=== PATIENT | female | born 1940 | race Caucasian/White ===

== ENCOUNTER → 2016-04-13 | Outpatient (CLI) | payer OTHER ==
[~2016-04-13] MED LIST: ASPEC81 PO; ATEN-175 PO; ATV5 PO; CHOL100010 PO; IBUP-103 PO; LATA0.009 OPR; LOSA1TAB38 PO; MONT1TAB5 PO; PANT40TA PO; SERT-234 PO; SIMV40TA2 PO; SYMIN INH
== END | disposition home or self-care (01) ==
LOC: C.LABBFT 07:55
PROVIDERS: ATTEND Internal Medicine
DX: E78.00 Pure hypercholesterolemia, unspecified (principal)

== ENCOUNTER → 2016-07-03 | Outpatient (CLI) | payer OTHER ==
--- NOTE | 2016-07-03 13:11 | DIAGNOSTIC IMAGING REPORT ---
THYROID ULTRASOUND HISTORY: Follow-up thyroid nodule. COMPARISON: Thyroid ultrasound 01/03/2016. FINDINGS: Right lobe: 4.1 x 1.3 x 1.5 cm. There is a 2 mm cyst within the interpolar region. There are 2 similar-appearing subtle hypoechoic nodules within the upper pole measuring 4 mm. There is an 8 x 6 x 6 mm hypoechoic nodule inferior to the right thyroid lobe. In retrospect, this remains unchanged. Left lobe: 3.3 x 1.2 x 1.1 cm. No nodules. Isthmus: No significant change in the heterogeneous solid nodule along the left side of the isthmus which measures 1.1 x 0.9 x 0.7 cm. IMPRESSION: 1. No change in the 1.1 x 0.9 x 0.7 cm solid nodule within the left side of the isthmus. Continued follow-up or fine needle aspiration can be performed. 2. An 8 x 6 x 6 mm hypoechoic nodule inferior to the right thyroid lobe. This remains stable. This could represent a lymph node or parathyroid adenoma. Continued follow-up also recommended. Electronically signed by: Ishmael Lr M.D. 07/03/2016 1:10 PM Dictated Date/Time: 07/03/2016 1:05 PM
== END | disposition home or self-care (01) ==
LOC: C.ULTR 10:41
PROVIDERS: ATTEND Internal Medicine
DX: E04.1 Nontoxic single thyroid nodule (principal)

== ENCOUNTER → 2016-09-27 | Outpatient (CLI) | payer OTHER ==
[2016-09-27 13:02] LABS: BLOOD UREA NITROGEN 16 mg/dl (7-18); BUN/CREATININE RATIO 12.5 (10-20); CALCIUM 9.4 mg/dl (8.5-10.1); CARBON DIOXIDE 29 mmol/L (21-32); CHLORIDE 103 mmol/L (98-107); GLUCOSE 121 mg/dl (70-99); POTASSIUM 3.5 mmol/L (3.5-5.1); SODIUM 139 mmol/L (136-145)
== END | disposition home or self-care (01) ==
LOC: C.LABBFT 10:54
PROVIDERS: ATTEND Internal Medicine
DX: I10 Essential (primary) hypertension (principal)

== ENCOUNTER → 2016-10-04 | Outpatient (CLI) | payer OTHER ==
[2016-10-04 12:42] LABS: BLOOD UREA NITROGEN 10 mg/dl (7-18); BUN/CREATININE RATIO 12.1 (10-20); CALCIUM 9.5 mg/dl (8.5-10.1); CARBON DIOXIDE 29 mmol/L (21-32); CHLORIDE 106 mmol/L (98-107); CREATININE 0.86 mg/dl (0.60-1.20); GLUCOSE 90 mg/dl (70-99); POTASSIUM 3.6 mmol/L (3.5-5.1); SODIUM 142 mmol/L (136-145)
== END | disposition home or self-care (01) ==
LOC: C.LABBFT 10:03
PROVIDERS: ATTEND Nurse Practitioner
DX: I10 Essential (primary) hypertension (principal)

== ENCOUNTER → 2017-01-11 | Outpatient (CLI) | payer OTHER ==
[2017-01-11 11:59] LABS: BASO % 0.5 %; BASO ABS # 0.03 K/uL (0-0.2); COMPLETE YES; IG% 0.2 %; LYMPH % 39.2 %; LYMPH ABS # 2.35 K/uL (1.2-3.4); MEAN CELL VOLUME 91.6 fL (80-100); MEAN CORPUSCULAR HEMOGLOBIN 31.2 pg (25-34); MEAN CORPUSCULAR HGB CONC 34.1 g/dl (32-36); MEAN PLATELET VOLUME 10.2 fL (7.4-10.4); MONO % 6.7 %; NEUT % 51.4 %; PLATELET COUNT 215 K/uL (130-400); RED BLOOD COUNT 4.04 M/uL (4.2-5.4); WHITE BLOOD COUNT 5.99 K/uL (4.8-10.8)
[2017-01-11 12:06] LABS: URINE APPEARANCE CLEAR (CLEAR); URINE BILIRUBIN NEG (NEG); URINE COLOR YELLOW; URINE EPITHELIAL CELL AUTO >30 /lpf (0-5); URINE NITRITE NEG (NEG); URINE PH 6.5 (4.5-7.5); URINE SPECIFIC GRAVITY 1.017 (1.000-1.030); UROBILINOGEN NEG (NEG); ZZUR CULT IF INDIC CLEAN CATCH NO
[2017-01-11 12:08] LABS: MANUAL MICROSCOPIC REQUIRED? NO; REVIEW REQ? NO
[2017-01-11 12:12] LABS: ALT/SGPT 24 U/L (12-78); BLOOD UREA NITROGEN 12 mg/dl (7-18); BUN/CREATININE RATIO 14.6 (10-20); CALCIUM 8.5 mg/dl (8.5-10.1); CARBON DIOXIDE 32 mmol/L (21-32); CHLORIDE 105 mmol/L (98-107); GLUCOSE 97 mg/dl (70-99); POTASSIUM 3.6 mmol/L (3.5-5.1); SODIUM 141 mmol/L (136-145)
[2017-01-11 12:15] LABS: ALB/GLOB RATIO 1.1 (0.9-2); ALKALINE PHOSPHATASE 70 U/L (45-117); AST/SGOT 24 U/L (15-37)
[2017-01-11 13:36] LABS: ESTIMATED AVERAGE GLUCOSE 114 mg/dl; HA1C FLAG Normal (Normal)
== END | disposition home or self-care (01) ==
LOC: C.LABBFT 07:45
PROVIDERS: ATTEND Internal Medicine
DX: R73.03 Prediabetes (principal); E55.9 Vitamin D deficiency, unspecified

== ENCOUNTER → 2017-01-26 | Outpatient (CLI) | payer OTHER ==
[2017-01-26 12:18] LABS: BLOOD UREA NITROGEN 14 mg/dl (7-18); BUN/CREATININE RATIO 15.4 (10-20); CALCIUM 9.2 mg/dl (8.5-10.1); CARBON DIOXIDE 28 mmol/L (21-32); CHLORIDE 104 mmol/L (98-107); CREATININE 0.88 mg/dl (0.60-1.20); GLUCOSE 137 mg/dl (70-99); POTASSIUM 3.8 mmol/L (3.5-5.1); SODIUM 141 mmol/L (136-145)
== END | disposition home or self-care (01) ==
LOC: C.LABBFT 10:30
PROVIDERS: ATTEND Internal Medicine
DX: I10 Essential (primary) hypertension (principal)

== ENCOUNTER → 2017-03-01 | Outpatient (CLI) | payer OTHER | END | disposition home or self-care (01) | LOC: C.MAMM 12:37 | PROVIDERS: ATTEND Internal Medicine | DX: M81.0 Age-related osteoporosis without current pathological fracture (principal) ==

== ENCOUNTER 2017-05-01 17:24 | Emergency (ER) | payer OTHER ==
[~2017-05-01] VITALS: Ht 157.5 cm; Wt 71.2 kg
[2017-05-01 17:53] VITALS: TEMP 36.5; Ht 157.5 cm; Wt 71.2 kg
[2017-05-01] MEDS ORDERED: SODIUM CHLORIDE 0.9% 1000ML 1,000 ML IV STA (18:26)
--- NOTE | 2017-05-01 18:39 | EMERGENCY ROOM VISIT NOTE ---
History Report prepared by Remigio: Jose Farris Under the Supervision of: Dr. Martin Jernigan M.D. 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 She was recently seen by her PCP for a checkup due to her blood pressure. She states it was 230/ 96 while at her doctor's office. She states that she had a headache today while at her checkup. She notes her headache has subsided. She has a history of headaches. She denies any chest pain or shortness of breath. She denies any fevers, coughs, congestion, or diarrhea. She notes she was sick during March 2017. She notes she was hardly eating anything during that time. She states that she has been recently eating and drinking well. She reports that she occasionally forgets to take her blood pressure medication. She forgot to take her blood pressure medication last night. She notes chronic leg pain. She denies any urinary symptoms. 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 Review of Systems See HPI for pertinent positives and negatives. A total of ten systems were reviewed and were otherwise negative. Past Medical & Surgical Medical Problems: (1) Anxiety (2) Breast cancer (3) Depression (4) Diverticulosis (5) Glaucoma (6) H/O gastroesophageal reflux (GERD) (7) HTN (hypertension) (8) Hypertension (9) Influenza A (10) Weakness Surgical Problems: (1) H/O lumpectomy (2) H/O: hysterectomy (3) Hx of tonsillectomy Family History Cancer Diabetes mellitus FH: HTN (hypertension) Gallbladder disease Heart disease Kidney disease Kidney stones Lung disease Social History Smoking Status: Never Smoker Smokeless Tobacco Use: No Alcohol Use: none Drug Use: none Marital Status: Housing Status: lives with significant other Occupation Status: retired Current/Historical Medications Scheduled Aspirin Enteric Coated (Ecotrin Or Generic), 81 MG PO QAM Atorvastatin (Lipitor), 10 MG PO HS Cholecalciferol (D3-1000), 1,000 UNITS PO BID Hydrochlorothiazide (Hctz), 25 MG PO QAM Losartan Potassium (Cozaar), 100 MG PO HS Metoprolol Tartrate (Lopressor) (Lopressor), 12.5 MG PO BID Pantoprazole (Protonix), 40 MG PO QAM Sertraline (Zoloft), 100 MG PO QAM Scheduled PRN Ibuprofen Tab (Advil), 200-600 MG PO Q4H PRN for Pain or Fever Lorazepam (Lorazepam), 0.5 MG PO HS PRN for Sleep Allergies Coded Allergies: Penicillins (Verified Allergy, Severe, HIVES, 05/01/17) Simvastatin (Verified Allergy, Intermediate, MYALGIA, 05/01/17) Adhesives (Verified Allergy, Mild, RASH, 05/01/17) Doxycycline (Verified Adverse Reaction, Intermediate, N/V, 05/01/17) Telithromycin (Verified Adverse Reaction, Intermediate, N/V, 05/01/17) Physical Exam Vital Signs Date Time Temp Pulse Resp B/P (MAP) Pulse Ox O2 Delivery O2 Flow Rate FiO2 05/01/17 19:57 51 164/65 97 Room Air 05/01/17 19:12 53 05/01/17 18:54 52 20 183/69 97 Room Air 05/01/17 18:49 Room Air 05/01/17 17:53 36.5 59 20 129/72 94 Room Air Physical Exam GENERAL: Awake, alert, well-appearing, in no distress HENT: Normocephalic, atraumatic. Oropharynx has dry mucus membranes. EYES: Normal conjunctiva. Sclera non-icteric. NECK: Supple. No nuchal rigidity. FROM. No JVD. RESPIRATORY: Clear to auscultation. CARDIAC: Regular rate, normal rhythm. Extremities warm and well perfused. Pulses equal. ABDOMEN: Soft, non-distended. No tenderness to palpation. No rebound or guarding. No masses. RECTAL: Deferred. MUSCULOSKELETAL: Chest examination reveals no tenderness. The back is symmetrical on inspection without obvious abnormality. There is no CVA tenderness to palpation. No joint edema. LOWER EXTREMITIES: Calves are equal size bilaterally and non-tender. No edema. No discoloration. NEURO: Normal sensorium. No sensory or motor deficits noted. SKIN: No rash or jaundice noted. Medical Decision & Procedures ER Provider Diagnostic Interpretation: Radiology results as stated below per my review and radiologist interpretation: SINGLE VIEW CHEST CLINICAL HISTORY: Atypical chest pain. FINDINGS: An AP, portable, upright chest radiograph is compared to study dated 05/03/2014. The examination is degraded by portable technique and patient rotation. The cardiomediastinal silhouette is unremarkable. There is chronic elevation of the right hemidiaphragm and mild bibasilar atelectasis. The lungs and pleural spaces are otherwise clear. No pneumothorax is seen. The skeletal structures are osteopenic. The bony thorax is grossly intact. Cholecystectomy clips are noted in the right upper quadrant. IMPRESSION: No active disease in the chest. Electronically signed by: Conor Faye M.D. 05/01/2017 6:56 PM Dictated Date/Time: 05/01/2017 6:55 PM Laboratory Results 05/01/17 18:46 Red Blood Count 3.80, Mean Corpuscular Volume 93.4, Mean Corpuscular Hemoglobin 31.3, Mean Corpuscular Hemoglobin Concent 33.5, Mean Platelet Volume 10.4, Neutrophils (%) (Auto) 46.8, Lymphocytes (%) (Auto) 44.4, Monocytes (%) (Auto) 6.2, Eosinophils (%) (Auto) 1.8, Basophils (%) (Auto) 0.7, Neutrophils # (Auto) 3.54, Lymphocytes # (Auto) 3.36, Monocytes # (Auto) 0.47, Eosinophils # (Auto) 0.14, Basophils # (Auto) 0.05 05/01/17 18:46 Test 05/01/17 18:46 White Blood Count 7.57 K/uL (4.8-10.8) Red Blood Count 3.80 M/uL (4.2-5.4) Hemoglobin 11.9 g/dL (12.0-16.0) Hematocrit 35.5 % (37-47) Mean Corpuscular Volume 93.4 fL (80-100) Mean Corpuscular Hemoglobin 31.3 pg (25-34) Mean Corpuscular Hemoglobin Concent 33.5 g/dl (32-36) Platelet Count 192 K/uL (130-400) Mean Platelet Volume 10.4 fL (7.4-10.4) Neutrophils (%) (Auto) 46.8 % Lymphocytes (%) (Auto) 44.4 % Monocytes (%) (Auto) 6.2 % Eosinophils (%) (Auto) 1.8 % Basophils (%) (Auto) 0.7 % Neutrophils # (Auto) 3.54 K/uL (1.4-6.5) Lymphocytes # (Auto) 3.36 K/uL (1.2-3.4) Monocytes # (Auto) 0.47 K/uL (0.11-0.59) Eosinophils # (Auto) 0.14 K/uL (0-0.5) Basophils # (Auto) 0.05 K/uL (0-0.2) RDW Standard Deviation 47.5 fL (36.4-46.3) RDW Coefficient of Variation 13.8 % (11.5-14.5) Immature Granulocyte % (Auto) 0.1 % Immature Granulocyte # (Auto) 0.01 K/uL (0.00-0.02) Anion Gap 5.0 mmol/L (3-11) Est Creatinine Clear Calc Drug Dose 52.7 ml/min Estimated GFR () 78.2 Estimated GFR (Non- 67.5 BUN/Creatinine Ratio 16.4 (10-20) Calcium Level 8.7 mg/dl (8.5-10.1) Magnesium Level 2.0 mg/dl (1.8-2.4) Total Bilirubin 0.6 mg/dl (0.2-1) Direct Bilirubin 0.1 mg/dl (0-0.2) Aspartate Amino Transf (AST/SGOT) 21 U/L (15-37) Alanine Aminotransferase (ALT/SGPT) 23 U/L (12-78) Alkaline Phosphatase 61 U/L (45-117) Troponin I < 0.015 ng/ml (0-0.045) Total Protein 7.1 gm/dl (6.4-8.2) Albumin 3.7 gm/dl (3.4-5.0) Lipase 160 U/L (73-393) Laboratory results reviewed by me Medications Administered Medications (Trade) Dose Ordered Sig/Kt Route Start Time Stop Time Status Last Admin Dose Admin Sodium Chloride 1,000 ml @ 999 mls/hr Q1H1M STAT IV 05/01/17 18:26 05/01/17 19:26 DC 05/01/17 18:56 999 MLS/HR ECG Indication: other (high blood pressure) Rate (beats per minute): 51 Rhythm: sinus bradycardia Findings: no acute ischemic change, other (Normal axis. ) Change: Patient's electrocardiogram interpreted by me. ED Course 1824: The patient was evaluated in room A9B. A complete history and physical exam was performed. 1939: I reassessed the patient at this time. She is feeling better and resting comfortably. I discussed the results and treatment plan with the patient. I answered all pertaining questions that she had. She expressed understanding and verbalized agreement. The patient will be discharged home. Medical Decision I reviewed the patient's past medical history, medications, and the nursing notes as described above. The patient's presentation and history were concerning for dehydration, electrolyte abnormalities, ACS, renal disease, tension headache, migraine headache, and viral syndrome. The patient is a 76-year-old woman with a past medical history of hypertension who presents to emergency department from her PCPs office concern for elevated blood pressure with systolic blood pressure in the 200s in the setting of mild headache per hpi. Patient was given clonidine prior to EMS transfer and upon arrival patient's blood pressures and within normal limits and headache is resolved. The patient denies chest pain, shortness of breath, nausea or vomiting. EKG unremarkable. Troponin negative. Chest x-ray negative. Patient does appear clinically dry and reports decreased oral intake over the past couple weeks after having a URI. It is possible that mild dehydration as contributing to the patient's elevated blood pressures. However, the patient also reports having missed her blood pressure medication last night preceding her visit to her doctor's office to follow her high blood pressure. Given the patient is asymptomatic there is no indication for further workup or admission. Plan for PCP follow-up for further monitoring and management of her known HTN. Findings and plan for follow-up reviewed with patient. Patient agreeable and d/c'd per discharge instructions. Medication Reconcilliation Current Medication List: was personally reviewed by me Blood Pressure Screening Patient's blood pressure: Normal blood pressure Impression Primary Impression: Hypertension Scribe Attestation The scribe's documentation has been prepared under my direction and personally reviewed by me in its entirety. I confirm that the note above accurately reflects all work, treatment, procedures, and medical decision making performed by me. Departure Information Dispostion Home / Self-Care Referrals Sandoval He M.D. (PCP) Forms HOME CARE DOCUMENTATION FORM, IMPORTANT VISIT INFORMATION, WORK / SCHOOL INSTRUCTIONS Patient Instructions Hypertension Control, Hypertension Dc, [facility] Additional Instructions Please follow up with your primary care physician in the next 1-3 days for re- evaluation. The cause of your elevated blood pressure today may have been due to mild dehydration and missing your blood pressure medicines last night Otherwise, your exam, EKG, chest xray, and lab results did not show signs of an emergent condition at this time. Take your medications as prescribed. Drink plenty of fluids to ensure hydration. Return to the emergency department for worsening symptoms as described in the accompanying instructions.
--- NOTE | 2017-05-01 18:57 | DIAGNOSTIC IMAGING REPORT ---
SINGLE VIEW CHEST CLINICAL HISTORY: Atypical chest pain. FINDINGS: An AP, portable, upright chest radiograph is compared to study dated 05/03/2014. The examination is degraded by portable technique and patient rotation. The cardiomediastinal silhouette is unremarkable. There is chronic elevation of the right hemidiaphragm and mild bibasilar atelectasis. The lungs and pleural spaces are otherwise clear. No pneumothorax is seen. The skeletal structures are osteopenic. The bony thorax is grossly intact. Cholecystectomy clips are noted in the right upper quadrant. IMPRESSION: No active disease in the chest. Electronically signed by: Conor Faye M.D. 05/01/2017 6:56 PM Dictated Date/Time: 05/01/2017 6:55 PM
[2017-05-01 19:03] LABS: BASO % 0.7 %; BASO ABS # 0.05 K/uL (0-0.2); EOS % 1.8 %; EOS ABS # 0.14 K/uL (0-0.5); HEMATOCRIT 35.5 % (37-47); HEMOGLOBIN 11.9 g/dL (12.0-16.0); IG# 0.01 K/uL (0.00-0.02); LYMPH % 44.4 %; LYMPH ABS # 3.36 K/uL (1.2-3.4); MEAN CELL VOLUME 93.4 fL (80-100); MEAN CORPUSCULAR HEMOGLOBIN 31.3 pg (25-34); MEAN CORPUSCULAR HGB CONC 33.5 g/dl (32-36); MEAN PLATELET VOLUME 10.4 fL (7.4-10.4); MONO % 6.2 %; MONO ABS # 0.47 K/uL (0.11-0.59); NEUT % 46.8 %; NEUT ABS # 3.54 K/uL (1.4-6.5); PLATELET COUNT 192 K/uL (130-400); RED CELL DISTRIBUTION WIDTH CV 13.8 % (11.5-14.5); RED CELL DISTRIBUTION WIDTH SD 47.5 fL (36.4-46.3); WHITE BLOOD COUNT 7.57 K/uL (4.8-10.8)
[2017-05-01 19:24] LABS: ALBUMIN 3.7 gm/dl (3.4-5.0); ALT/SGPT 23 U/L (12-78); AST/SGOT 21 U/L (15-37); BLOOD UREA NITROGEN 14 mg/dl (7-18); CALCIUM 8.7 mg/dl (8.5-10.1); CARBON DIOXIDE 28 mmol/L (21-32); CREATININE 0.84 mg/dl (0.60-1.20); GLUCOSE 92 mg/dl (70-99); LIPASE 160 U/L (73-393); POTASSIUM 4.2 mmol/L (3.5-5.1); SODIUM 138 mmol/L (136-145)
[2017-05-01 19:26] LABS: ALKALINE PHOSPHATASE 61 U/L (45-117); TOTAL PROTEIN 7.1 gm/dl (6.4-8.2)
[2017-05-01] MEDS ORDERED: HYDR25TA4 PO (19:51)
[2017-05-01] MEDS ORDERED: ATOR10TA82 PO (19:51)
[2017-05-01] MEDS ORDERED: ASPI81TA21 PO (19:51)
[2017-05-01] MEDS ORDERED: METO25TA56 PO (19:51)
[2017-05-01] MEDS ORDERED: ATV5 PO (19:51)
[2017-05-01] MEDS ORDERED: CHOLTAB9 PO (19:51)
[2017-05-01 19:57] VITALS: BP 164/65; PULSE 51; O2SAT 97
== END 2017-05-01 20:10 | disposition home or self-care (01) ==
LOC: C.EDB 17:24 → C.EDA 20:10
DX: I10 Essential (primary) hypertension (principal); M79.606 Pain in leg, unspecified; G89.29 Other chronic pain; F41.9 Anxiety disorder, unspecified; F32.9 Major depressive disorder, single episode, unspecified; K21.9 Gastro-esophageal reflux disease without esophagitis; K57.90 Diverticulosis of intestine, part unspecified, without perforation or abscess without bleeding; Z85.3 Personal history of malignant neoplasm of breast; H40.9 Unspecified glaucoma; Z90.710 Acquired absence of both cervix and uterus; Z79.82 Long term (current) use of aspirin

== ENCOUNTER → 2017-05-08 | Outpatient (CLI) | payer OTHER ==
[~2017-05-08] MED LIST changes: -ASPEC81 PO; +ASPI81TA21 PO; -ATEN-175 PO; +ATOR10TA82 PO; -CHOL100010 PO; +CHOLTAB9 PO; +HYDR25TA4 PO; -LATA0.009 OPR; +METO25TA56 PO; -MONT1TAB5 PO; -SIMV40TA2 PO; -SYMIN INH
--- NOTE | 2017-05-08 14:12 | DIAGNOSTIC IMAGING REPORT ---
ULTRASOUND OF THE THYROID GLAND CLINICAL HISTORY: Thyroid nodule. COMPARISON STUDY: Thyroid ultrasound dated 07/03/2016. TECHNIQUE: Real-time, grayscale, and color flow sonography of the thyroid gland is performed utilizing a high-frequency linear transducer. Images are reviewed in the transverse and longitudinal planes. FINDINGS: Right lobe: The right lobe of the thyroid gland is normal in size and homogeneous in echotexture, measuring 4.6 x 1.5 x 1.4 cm. A hypoechoic nodule in the upper pole measures 0.6 x 0.3 x 0.5 cm (previously measured 0.4 x 0.4 x 0.3 cm). Two additional 2 mm hypoechoic nodules are unchanged. A nodule either within or just lateral to the mid to lower pole measures 0.9 x 0.6 x 0.8 cm (previously measured 0.8 x 0.6 x 0.6 cm). Left lobe: The left lobe of the thyroid gland is normal in size and homogeneous in echotexture, measuring 3.7 x 1.1 x 1.2 cm. A 3 mm hypoechoic nodule is unchanged. Isthmus: The thyroid isthmus is normal in appearance and measures 0.2 cm in AP diameter. A nodule in the left isthmus measures 1.2 x 0.8 x 0.9 cm (previously measured 1.1 x 0.7 x 0.9 cm). IMPRESSION: 1. Multinodular thyroid gland as above, not significantly changed as compared to 07/03/2016. 2. A hypoechoic nodule either within or adjacent to the right thyroid lobe is also unchanged and could represent exophytic nodule, parathyroid adenoma, or lymph node. Electronically signed by: Conor Faye M.D. 05/08/2017 2:11 PM Dictated Date/Time: 05/08/2017 2:07 PM
== END | disposition home or self-care (01) ==
LOC: C.ULTR 13:01
PROVIDERS: ATTEND Internal Medicine
DX: E04.1 Nontoxic single thyroid nodule (principal)

== ENCOUNTER → 2017-05-10 | Outpatient (CLI) | payer OTHER ==
[2017-05-10 13:19] LABS: BLOOD UREA NITROGEN 14 mg/dl (7-18); CALCIUM 9.1 mg/dl (8.5-10.1); CARBON DIOXIDE 29 mmol/L (21-32); CREATININE 1.02 mg/dl (0.60-1.20); GLUCOSE 83 mg/dl (70-99); POTASSIUM 3.8 mmol/L (3.5-5.1); SODIUM 136 mmol/L (136-145)
== END | disposition home or self-care (01) ==
LOC: C.LABBFT 07:58
PROVIDERS: ATTEND Nurse Practitioner
DX: I10 Essential (primary) hypertension (principal)

== ENCOUNTER → 2017-10-30 | Outpatient (CLI) | payer OTHER ==
[~2017-10-30] MED LIST changes: +ASPI-319 PO; -ASPI81TA21 PO
== END | disposition home or self-care (01) ==
LOC: C.LABSPEC 13:33
PROVIDERS: ATTEND Nurse Practitioner
DX: R39.9 Unspecified symptoms and signs involving the genitourinary system (principal)

== ENCOUNTER 2019-10-25 11:56 | Observation (INO) ==
[2019-10-25] MEDS ORDERED: SODIUM CHLORIDE 0.9% 1000ML 1,000 ML IV SCH (12:30)
--- NOTE | 2019-10-25 12:45 | Emergency Department Note ---
Impression & Plan Weakness, Diarrhea, Falls frequently, Infection due to 2019 novel coronavirus, Myalgia ED Provider Note Provider: Brian Sanchez MD DATE OF SERVICE: 10/25/2019 CHIEF COMPLAINT: Weakness HISTORY OF PRESENT ILLNESS: Patient is a 79-year-old female with a history of hypothyroidism, prediabetes, hypertension, hyperlipidemia presenting today for generalized weakness. Patient was evaluated here 3 days ago in the emergency department. Patient was recently diagnosed with COVID-19 after exposure to a neighbor returning from the [facility]. Patient tested positive on the this month and has been symptomatic since about the . Reports significant fatigue and myalgias with slight cough. Having worsening weakness. Patient states she has had several falls and was evaluated for fall several days ago here where she bruised her left jaw. Patient states since then she has been feeling very weak at home and last night fell to the floor again. Patient states she is unsure if she may have lost consciousness but her helped her up. Significant multiple episodes of diarrhea daily but states she is being in her drinking. Patient states he took some ibuprofen around 1030a. Patient and her neighbor of the monitoring her vitals and pulse ox at home and state they have not dropped precipitously low. Patient states she is feels quite weak and continues to fall. Patient states that her potassium was little low on her last visit. Patient denies significant headache or visual change or nausea at this time. REVIEW OF SYSTEMS: A total of 10 review of systems was obtained and negative except as stated above in the HPI. PAST MEDICAL HISTORY: As noted above MEDICATIONS: Reviewed home medication list SOCIAL HISTORY: Lives at home with , retired, non-smoker PHYSICAL EXAM: GENERAL: alert and oriented in no acute distress on stretcher but appears fatigued Head: No obvious deformity with a 3 cm area of contusion on the left lower anterior jaw appears to be resolving, denies any loose teeth or dentition EYES: No injection, discharge or icterus. PERRL NECK: Trachea midline. Supple. ENT: Mucous membranes pink and moist. LUNGS: Airway patent. No retractions. Breath sounds clear HEART: Regular rate and rhythm. No chest wall tenderness ABDOMEN: Soft and non-tender, without guarding or rebound. SKIN: Acyanotic, warm, dry, without rashes EXTREMITIES: No significant tenderness or obvious pedal edema. Patient does have some slight bruising about 2 to 3 cm on her dorsal left hand that again appears resolving over the mid hand. NEUROLOGICAL: No focal deficits. No aphasia. No facial droop or slurred speech. Normal strength and tone in the extremities. Sensation to gross touch normal. Ambulatory. EK bpm normal sinus rhythm without PVC or PAC. No acute ST segment elevation or depressions appreciable. Some aVL T wave flattening is noted. QTc 451. CONTINUOUS CARDIAC MONITORING: was ordered and showed a heart rate of 76 bpm in normal sinus rhythm Patient's hypertension was referred to the hospitalist HOSPITAL COURSE: 1215 Patient was first seen and H&P performed. Patient and B8 on airborne precautions. 1344 Patient reassessed and updated. Patient was resting in bed still feeling generally fatigued. Discussed with her findings and discussed options at this point. Shared decision-making was made for further observation here in the h ospital. [address] [facility] Hospitalist Dr. Prasad. Attempted to update Patient's but no answer on phone, charge nurse aware. Patient's laboratory studies and imaging reviewed. Differential includes Infection, dehydration, metabolic abnormality, hypo/hyperglycemia, electrolyte disturbance, anemia, hypoxia, cardiac sources, intracerebral event, toxicologic, neurologic, as well as other pathologies. IMPRESSION/MEDICAL DECISION MAKING: Patient presents with generalized weakness and myalgias as well as continued diarrhea with a current coronavirus 19 infection. Not significant hypoxic this time. Patient denies currently striking her head and denies headache at this time. Lower suspicion for acute intracranial abnormality. Denies any other new significant injury to her extremities but states she is been feeling too weak. States she has been eating or drinking some but is concerned about her falls and weakness. Basic labs, chest x-ray, and EKG were obtained. I have a lower suspicion for acute intracranial abnormality in this patient at this time and had a recent head CT after the more significant trauma several days ago. No focality to her exam. Maintained on airborne precautions. Laboratory studies show worsening lymphopenia and leukopenia. Slight anemia noted. Chest x-ray appears fairly clear without large infiltrative process or evidence of pneumothorax. She has benign abdomen I doubt acute intra-abdominal pathology. No evidence of elevated troponin. LFTs within normal limits. No evidence of pancreatitis. Mild hypokalemia noted. We will give an IV dose of potassium here in addition to an oral dose. Discussed with patient options at this time. She felt quite weak and fatigued and and shared decision-making wish for further observation here in the hospital. Believe this is reasonable. Will send stool studies and C. difficile lower suspicion for another coinfection besides coronavirus at this time. 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 Feels Safe at Home: Yes Allergies Allergies Allergy/AdvReac Type Severity Reaction Status Date / Time Penicillins Allergy Severe HIVES Verified 10/22/19 18:37 simvastatin Allergy Intermediate MYALGIA Verified 10/22/19 18:37 adhesive Allergy Mild RASH Verified 10/22/19 18:37 doxycycline AdvReac Intermediate Nausea/Vomi Verified 10/22/19 18:37 ting telithromycin AdvReac Intermediate Nausea/Vomi Verified 10/22/19 18:37 ting Home Meds Home Medications Medication Instructions Recorded Confirmed aspirin 81 mg PO QAM 05/10/18 10/25/19 cholecalciferol (vitamin D3) 25 1,000 units PO HS tab 10/21/18 10/25/19 mcg (1,000 unit) tablet atorvastatin 10 mg PO QAM 10/22/19 10/25/19 irbesartan 300 mg PO QAM 10/22/19 10/25/19 sertraline 100 mg PO HS 10/22/19 10/25/19 Previous Rx's Medication Instructions Recorded pantoprazole 40 mg tablet,delayed 40 mg PO BID #180 tab 12/16/18 release lorazepam 0.5 mg tablet 0.5 mg PO DAILY PRN #30 tab 06/30/19 ondansetron 4 mg PO Q6H PRN #14 tab 10/22/19 Results & Data (ED) Vital Signs Vital Signs - 24 hr 10/25/19 12:13 10/25/19 12:21 10/25/19 12:30 Temperature 37.3 C Temperature Source Oral Pulse Rate 88 87 79 Pulse Rate from SpO2 Sensor 88 87 79 Pulse Rhythm Regular Pulse Strength Normal Respiratory Rate 20 21 Respiratory Effort / Characteristics Non-Labored Spontaneous Respiratory Depth Normal Respiratory Pattern Regular Blood Pressure 128/71 118/62 Blood Pressure Mean 77 80 Blood Pressure Position Sitting Pulse Oximetry 94 94 91 Oxygen Delivery Method Room Air Sepsis Recent Fever Within 48 Hours Yes Sepsis New/Unexplained Change in Mental Status No Sepsis Action Taken by Nursing No Action Required 10/25/19 12:31 10/25/19 12:40 10/25/19 12:45 Temperature Temperature Source Pulse Rate 79 80 Pulse Rate from SpO2 Sensor 80 80 Pulse Rhythm Pulse Strength Respiratory Rate Respiratory Effort / Characteristics Respiratory Depth Respiratory Pattern Blood Pressure Blood Pressure Mean Blood Pressure Position Pulse Oximetry 92 92 94 Oxygen Delivery Method Room Air Sepsis Recent Fever Within 48 Hours Sepsis New/Unexplained Change in Mental Status Sepsis Action Taken by Nursing 10/25/19 12:50 10/25/19 13:00 10/25/19 13:01 Temperature Temperature Source Pulse Rate 80 78 75 Pulse Rate from SpO2 Sensor 80 77 75 Pulse Rhythm Pulse Strength Respiratory Rate 23 20 Respiratory Effort / Characteristics Respiratory Depth Respiratory Pattern Blood Pressure 122/56 L Blood Pressure Mean 71 Blood Pressure Position Pulse Oximetry 93 93 93 Oxygen Delivery Method Sepsis Recent Fever Within 48 Hours Sepsis New/Unexplained Change in Mental Status Sepsis Action Taken by Nursing 10/25/19 13:10 Temperature Temperature Source Pulse Rate 73 Pulse Rate from SpO2 Sensor 73 Pulse Rhythm Pulse Strength Respiratory Rate Respiratory Effort / Characteristics Respiratory Depth Respiratory Pattern Blood Pressure Blood Pressure Mean Blood Pressure Position Pulse Oximetry 91 Oxygen Delivery Method Sepsis Recent Fever Within 48 Hours Sepsis New/Unexplained Change in Mental Status Sepsis Action Taken by Nursing Laboratory Data Result diagrams: 10/25/19 12:50 10/25/19 12:50 Lab Results 10/25/19 10/25/19 10/25/19 Range/Units 12:50 12:50 12:50 WBC 2.81 L (4.8-10.8) K/uL RBC 3.69 L (4.2-5.4) M/uL Hgb 11.3 L (12.0-16.0) g/dL Hct 33.7 L (37-47) % MCV 91.3 (80-100) fL MCH 30.6 (25-34) pg MCHC 33.5 (32-36) g/dL RDW Std Deviation 48.8 H (36.4-46.3) fL RDW Coeff of Ju[place] 14.5 (11.5-14.5) % Plt Count 142 (130-400) K/uL MPV 10.1 (7.4-10.4) fL Immature Gran % (Auto) 0.0 % Neut % (Auto) 70.5 % Lymph % (Auto) 23.1 % [place] % (Auto) 6.4 % Eos % (Auto) 0.0 % Baso % (Auto) 0.0 % Neut # (Auto) 1.98 (1.4-6.5) K/uL Lymph # (Auto) 0.65 L (1.2-3.4) K/uL [place] # (Auto) 0.18 (0.11-0.59) K/uL Eos # (Auto) 0.00 (0-0.5) K/uL Baso # (Auto) 0.00 (0-0.2) K/uL Immature Gran # (Auto) 0.00 (0.00-0.02) K/uL PT 10.8 (9.0-12.0) Seconds INR 1.0 (0.9-1.1) Sodium 138 (136-145) mmol/L Potassium 3.3 L (3.5-5.1) mmol/L Chloride 105 (98-107) mmol/L Carbon Dioxide 27 (21-32) mmol/L Anion Gap 6.0 (3-11) BUN 14 (7-18) mg/dl Creatinine 0.86 (0.6-1.2) mg/dl Est Cr Clr Drug Dosing 46.8 ml/min Est GFR ( Amer) 74.5 Est GFR (Non-Af Amer) 64.3 BUN/Creatinine Ratio 15.7 (10-20) Glucose 112 H (70-99) mg/dl Lactate (0.4-2.0) mmol/L Calcium 8.5 (8.5-10.1) mg/dl Magnesium 1.9 (1.8-2.4) mg/dl Ferritin (8-388) ng/ml Total Bilirubin 0.7 (0.2-1) mg/dl AST 20 (15-37) U/L ALT 15 (12-78) U/L Alkaline Phosphatase 58 (45-117) U/L Lactate Dehydrogenase (84-246) U/L Troponin I < 0.015 (0-0.045) ng/ml Total Protein 6.9 (6.4-8.2) gm/dl Albumin 3.3 L (3.4-5.0) gm/dl Globulin 3.6 (2.5-4.0) gm/dl Albumin/Globulin Ratio 0.9 (0.9-2) Lipase 107 (73-393) U/L 10/25/19 10/25/19 10/25/19 Range/Units 12:50 12:50 12:50 WBC (4.8-10.8) K/uL RBC (4.2-5.4) M/uL Hgb (12.0-16.0) g/dL Hct (37-47) % MCV (80-100) fL MCH (25-34) pg MCHC (32-36) g/dL RDW Std Deviation (36.4-46.3) fL RDW Coeff of Juwan (11.5-14.5) % Plt Count (130-400) K/uL MPV (7.4-10.4) fL Immature Gran % (Auto) % Neut % (Auto) % Lymph % (Auto) % [place] % (Auto) % Eos % (Auto) % Baso % (Auto) % Neut # (Auto) (1.4-6.5) K/uL Lymph # (Auto) (1.2-3.4) K/uL [place] # (Auto) (0.11-0.59) K/uL Eos # (Auto) (0-0.5) K/uL Baso # (Auto) (0-0.2) K/uL Immature Gran # (Auto) (0.00-0.02) K/uL PT (9.0-12.0) Seconds INR (0.9-1.1) Sodium (136-145) mmol/L Potassium (3.5-5.1) mmol/L Chloride (98-107) mmol/L Carbon Dioxide (21-32) mmol/L Anion Gap (3-11) BUN (7-18) mg/dl Creatinine (0.6-1.2) mg/dl Est Cr Clr Drug Dosing ml/min Est GFR ( Amer) Est GFR (Non-Af Amer) BUN/Creatinine Ratio (10-20) Glucose (70-99) mg/dl Lactate 1.1 (0.4-2.0) mmol/L Calcium (8.5-10.1) mg/dl Magnesium (1.8-2.4) mg/dl Ferritin 170.0 (8-388) ng/ml Total Bilirubin (0.2-1) mg/dl AST (15-37) U/L ALT (12-78) U/L Alkaline Phosphatase (45-117) U/L Lactate Dehydrogenase 264 H (84-246) U/L Troponin I (0-0.045) ng/ml Total Protein (6.4-8.2) gm/dl Albumin (3.4-5.0) gm/dl Globulin (2.5-4.0) gm/dl Albumin/Globulin Ratio (0.9-2) Lipase (73-393) U/L Administered Medications Potassium Chloride (K Joseph / Wtr) 10 meq in 100 mls @ 100 mls/hr IV ONE ONE Stop: 10/25/19 14:40 Last Admin: 10/25/19 14:02 Dose: 100 mls/hr Documented by: [id number] Discontinued Medications Sodium Chloride (Nss 1000ml) 1,000 mls @ 999 mls/hr IV .Q1H1M NEELAM Stop: 10/25/19 13:30 Last Infusion: 10/25/19 14:02 Dose: 0 mls/hr Documented by: [id number] Admin: 10/25/19 12:59 Dose: 999 mls/hr Documented by: [id number] Potassium Chloride (Klor-Con M20) 20 meq PO NOW STA Stop: 10/25/19 13:42 Last Admin: 10/25/19 14:02 Dose: 20 meq Documented by: [id number] Discharge Plan Visit Data Chief Complaint: Weakness Stated Complaint: +COVID, WEAKNESS, FALL ED Provider: rBian Sanchez Discharge Problem: Weakness, Diarrhea, Falls frequently, Infection due to 2019 novel coronavirus, Myalgia Patient Disposition: Being Evaluated by Hospitalist Condition: Fair Forms Stand Alone Forms: [facility] Prescriptions Prescriptions: No Action pantoprazole 40 mg tablet,delayed release (DR/EC) 40 mg PO BID Qty: 180 RF: 3 lorazepam 0.5 mg tablet 0.5 mg PO DAILY PRN (Reason: Anxiety) Qty: 30 RF: 1 cholecalciferol (vitamin D3) 1,000 unit tablet 1,000 units PO HS RF: 0 aspirin 81 mg Tablet,Delayed Release (Dr/Ec) 81 mg PO QAM RF: 0 atorvastatin 10 mg tablet 10 mg PO QAM RF: 0 sertraline 50 mg tablet 100 mg PO HS RF: 0 irbesartan 300 mg tablet 300 mg PO QAM RF: 0 ondansetron 4 mg tablet,disintegrating 4 mg PO Q6H PRN (Reason: nausea and vomiting) Qty: 14 RF: 0 Referrals Referrals: Mark He MD [Primary Care Provider] - Discharge Problem: Diarrhea Qualifiers: Diarrhea type: unspecified type Qualified Code(s): R19.7 - Diarrhea, unspecified
[2019-10-25 13:13] LABS: Hematocrit (blood only) 33.7 % (37-47); Hemoglobin 11.3 g/dL (12.0-16.0); Lymphocytes # (auto) 0.65 K/uL (1.2-3.4); Lymphocytes % (auto) 23.1 %; Mean Corpuscular Hemoglobin 30.6 pg (25-34); Mean Corpuscular Hgb Conc 33.5 g/dL (32-36); Mean Corpuscular Volume 91.3 fL (80-100); Mean Platelet Volume 10.1 fL (7.4-10.4); Monocytes # (auto) 0.18 K/uL (0.11-0.59); Monocytes % (auto) 6.4 %; Neutrophils # (auto) 1.98 K/uL (1.4-6.5); Neutrophils % (auto) 70.5 %; Platelet Count 142 K/uL (130-400); RDW Coefficient of Variation 14.5 % (11.5-14.5); RDW Standard Deviation 48.8 fL (36.4-46.3); Red Blood Count 3.69 M/uL (4.2-5.4); White Blood Count 2.81 K/uL (4.8-10.8)
[2019-10-25 13:22] LABS: Prothrombin Time 10.8 Seconds (9.0-12.0)
[2019-10-25 13:31] LABS: Alanine Aminotransferase 15 U/L (12-78); Albumin Level 3.3 gm/dl (3.4-5.0); Aspartate Aminotransferase 20 U/L (15-37); BUN Creatinine Ratio 15.7 (10-20); Blood Urea Nitrogen 14 mg/dl (7-18); Calcium 8.5 mg/dl (8.5-10.1); Carbon Dioxide 27 mmol/L (21-32); Chloride 105 mmol/L (98-107); Creatinine Clr Calc Pharmacy 46.8 ml/min; Est GFR (African American) 74.5; Est GFR (Non-African American) 64.3; Glucose 112 mg/dl (70-99); Lipase 107 U/L (73-393); Magnesium 1.9 mg/dl (1.8-2.4); Potassium 3.3 mmol/L (3.5-5.1); Sodium 138 mmol/L (136-145)
[2019-10-25 13:36] LABS: Albumin Globulin Ratio 0.9 (0.9-2); Alkaline Phosphatase 58 U/L (45-117); Bilirubin,Total 0.7 mg/dl (0.2-1); Globulin 3.6 gm/dl (2.5-4.0); Total Protein 6.9 gm/dl (6.4-8.2); Troponin I < 0.015 ng/ml (0-0.045)
[2019-10-25] MEDS ORDERED: POTASSIUM CHLORIDE 20 MEQ TABCR PO STA (13:41)
[2019-10-25] MEDS ORDERED: POTASSIUM CHLORIDE / WTR 10 MEQ/100 ML PLCT IV ONE (13:41)
--- NOTE | 2019-10-25 13:42 | XRay Report ---
XR chest 1V portable HISTORY: 79 years-old Female weakness acute weakness COMPARISON: Chest radiograph 10/22/2019 TECHNIQUE: Portable AP view of the chest FINDINGS: Cardiomediastinal and hilar silhouettes are within normal limits. Unchanged right hemidiaphragmatic e levation with linear right lung base opacities. There is no pneumothorax, pleural effusion or overt p ulmonary edema. Cholecystectomy. Degenerative changes of the shoulders and spine. IMPRESSION: 1. No acute process. 2. Right hemidiaphragmatic elevation with linear right lung base opacities suggestive of atelectasis. ACT 112: Negative or not required by law. The above report was generated using voice recognition software. It may contain grammatical, syntax o r spelling errors. Electronically signed by: Triston Duran M.D. 10/25/2019 1:40 PM
--- NOTE | 2019-10-25 15:25 | History & Physical Report ---
Date of Service October 25, 2019 Assessment & Plan (1) Encephalopathy acute: Suspect secondary to infective encephalopathy from SARS-CoV-2 infection. A few lateralizing features are concerning for stroke of unknown onset. Given low likelihood of this will get a routine MRI brain without contrast to further assess. Ammonia, B12, RPR added to a.m. labs (2) Infection due to 2019 novel coronavirus: ALC 0.65 and downtrending, LDH significantly elevated although relatively concerning labs. D-dimer, ferritin, CPK, troponin, CRP below the levels indicating severe infection. She would not be defined as severe disease since this is based on her respira tory status which is currently good, therefore no need for remdesivir/convalescent plasma/dexamethasone at this time. Supportive care with IV fluids, nutritional drinks, PT and OT. (3) Falls frequently: Looking back at prior PCP notes it appears she has a number of chronic complaints that have been exacerbated by her current illness. She has had longstanding dizziness with syncopal and presyncopal events worked up both by neurology in 2012 and more recently cardiology in 2019. She has a number of listed problems that could be contributing towards this including lorazepam use, lumbar spinal stenosis, polyneuropathy, chronic diarrhea, hypothyroidism, anxiety and depression. Once improving get orthostatics No injuries noted on exam as a result of her fall PT/OT (4) Diarrhea: Possibly worse with COVID-19 however she has known history of IBS-D with prior work-up including colonoscopy. Previous gastroenterology visit noted improvement with lactose-free diet. It seems reasonable to reinstate this at this time. Recommend offering antidiarrheals if patient is amenable to this +/- cholestyramine. Low tolerance for CT A/P if patient were to develop abdominal pain suggestive of diverticulitis given prior history of this and known severe diverticulosis. (5) Polyneuropathy: Diagnosis in EHR -entered by Dr. Zarco in 2012 although I have no notes to accompany this or EMS/NCS. Suspect contributing towards her frequent falls. B12 level with a.m. labs especially considering she takes pantoprazole 40 mg twice daily and has chronic diarrhea. (6) Spinal stenosis: Suspect this is the cause of her bilateral leg weakness when she walks. This appears longstanding but certainly makes rehabilitation from COVID-19 more difficult. No indication to repeat imaging during this current illness. (7) HTN (hypertension): Continue irbesartan at current dose 300 mg p.o. every morning, however if orthostatic certainly have to reduce this. (8) Depression: Continue sertraline 100 mg p.o. at bedtime (9) Hyperlipidemia: Continue atorvastatin 10 mg p.o. every morning. Previously intolerant to 20 mg and could consider cutting this altogether if she has persistent myalgias. (10) Hypothyroidism: TSH WNL Appears to be historical diagnosis since not currently taking levothyroxine. (11) DVT prophylaxis: Lovenox 30 mg subcu twice daily Admission and Anticipated Discharge Date Admission Date: October 25, 2019 History of Present Illness Chief Complaint: Generalized weakness and confusion Primary Care Provider: Sandoval He MD Gloria Fernandez is a 79-year-old female with history of hypothyroidism, prebiotic diabetes, hypertension, hyperlipidemia, recent and ongoing diagnosis of COVID-19 who presents to the emergency room with ongoing generalized weakness and fall. She had contact with a family who traveled to [place] and became unwell. Symptoms started on October 10 with fever and generalized muscle aches. She followed up with her PCP on a tele visit 10 days later and appeared to be improving. However the following day she had worsening weakness and ongoing to the bathroom and feeling out of it she had a full when having diffuse diarrhea. She was evaluated in the emergency room and discharged after a relatively benign work-up although this did not include a CT abdomen pelvis. Last night she fell to the floor again which prompted her visit here. Unknown if she lost consciousness. Her helped her up. Ongoing multiple episodes of loose stool which is not watery as per the patient. Allergies Allergy/AdvReac Type Severity Reaction Status Date / Time Penicillins Allergy Severe HIVES Verified 10/22/19 18:37 simvastatin Allergy Intermediate MYALGIA Verified 10/22/19 18:37 adhesive Allergy Mild RASH Verified 10/22/19 18:37 doxycycline AdvReac Intermediate Nausea/Vomi Verified 10/22/19 18:37 ting telithromycin AdvReac Intermediate Nausea/Vomi Verified 10/22/19 18:37 ting Home Medications Home Medications Medication Instructions Recorded Confirmed Type aspirin 81 mg PO QAM 05/10/18 10/25/19 History cholecalciferol (vitamin D3) 25 1,000 units PO HS tab 10/21/18 10/25/19 History mcg (1,000 unit) tablet pantoprazole 40 mg tablet,delayed 40 mg PO BID #180 tab 12/16/18 10/25/19 Rx release lorazepam 0.5 mg tablet 0.5 mg PO DAILY PRN #30 tab 06/30/19 10/25/19 Rx atorvastatin 10 mg PO QAM 10/22/19 10/25/19 History irbesartan 300 mg PO QAM 10/22/19 10/25/19 History ondansetron 4 mg PO Q6H PRN #14 tab 10/22/19 10/25/19 Rx sertraline 100 mg PO HS 10/22/19 10/25/19 History Past Med/Surg History Social History Smoking Status: Never smoker Second Hand Exposure: Yes (parents smoked); Hx Alcohol Use: No Hx Substance Use: No Preferred Language: E[place] Communication Ability: Effective Cash Application Clerk Required: Yes Beliefs That Will Affect Care: None marital status: Current Living Situation: Spouse current occupational status: retired current occupation: She is retired from office work and janitorial work. Other Information That Helps Us Care for You: No Feels Safe at Home: Yes Safety Concerns: Feels Safe At This Time Review of Systems Review of Systems: All systems reviewed & are unremarkable except as noted in HPI & below Constitutional: + body aches, + fatigue, + weakness and + weight loss; no fever, no chills and no insomnia Eyes: no problem reported Ear, Nose, Mouth, Throat: + dizziness (On standing); no nasal congestion, no facial pain, no sinus pain/pressure and no sore throat Respiratory: + dyspnea on exertion; no cough and no dyspnea Physical Exam Constitutional: well developed and + frail appearing; + not well nourished and no acute distress Eyes: PERRL, conjunctivae normal, anicteric sclerae ENMT: external ear and nose normal, oropharynx normal Neck: trachea midline, no thyromegaly Respiratory: normal respiratory effort, lungs clear to auscultation Cardiovascular: RRR, no murmur, no edema Gastrointestinal (Abdomen): Inspection/Auscultation: abdomen normal to inspection and normal bowel sounds; abdomen not distended Percussion/Palpation: abdomen soft; abdomen nontender, no guarding and abdomen not rigid Skin: no rashes, warm and dry Neurologic: moves all extremities, awake and + confused (Intermittently during the wrong action that I ask); no focal motor deficits (No lateralizing, changing intermittent weakness upper limbs more than lower limbs) Speech / Cognition: + abnormal cognition (Short-term memory loss although this is noted to be longstanding); normal speech Motor/Sensory: + tremor (Action left greater than right) and + pronator drift (Bilateral moderate right greater than left); no asterixis and no sensory deficit (Denied by patient) Cranial Nerves: PERRL, normal accommodation, EOM intact bilaterally, normal facial strength, able to rotate head bilaterally, able to elevate shoulders bilaterally, no nystagmus and symmetric palate elevation Psychiatric: Orientation: alert, oriented to person, oriented to place and oriented to time Eye Contact: + fair eye contact Affect: + flat affect Genitourinary: no CVA tenderness Lymphatic: no cervical or axillary lymphadenopathy Results & Data Results & Data ([facility]) Vital Signs (Past 12 Hours) Vital Signs Temp Pulse Resp BP Pulse Ox 10/25/19 15:00 69 21 128/52 L 97 10/25/19 14:50 63 21 94 10/25/19 14:40 63 23 94 10/25/19 14:31 65 22 94 10/25/19 14:30 67 24 132/67 94 10/25/19 14:20 65 22 94 10/25/19 14:10 72 18 96 10/25/19 14:01 68 95 10/25/19 14:00 67 23 115/58 L 94 10/25/19 13:50 66 24 93 10/25/19 13:40 72 93 10/25/19 13:31 72 21 93 10/25/19 13:30 73 22 130/62 93 10/25/19 13:20 74 93 10/25/19 13:10 73 91 10/25/19 13:01 75 20 93 10/25/19 13:00 78 122/56 L 93 10/25/19 12:50 80 23 93 10/25/19 12:45 94 10/25/19 12:40 80 92 10/25/19 12:31 79 92 10/25/19 12:30 79 118/62 91 10/25/19 12:21 87 21 94 07/25/20 12:13 37.3 C 88 20 128/71 94 Diagnostic Findings XR chest 1V portable IMPRESSION: 1. No acute process. 2. Right hemidiaphragmatic elevation with linear right lung base opacities suggestive of atelectasis. ECG Indication: altered mental status Rate (beats per minute): 78 Rhythm: normal sinus Findings: no acute ischemic change Comparison ECG Date: from (22 October 2019) Change: no significant change Code Status & VTE Plan Code Status DNR/DNI as discussed with the patient VTE Prophylaxis Plan VTE Prophylaxis will be ordered: Yes PG Care Time/CCT Total # of Minutes Spent Total Time Spent with Patient: Total time spent is greater than 50% in co ordination of care (as documented) at patient's floor/unit and/or counseling patient: Coding Level of Care Code 54263 Initial Inpt Care Lvl 3 Diagnoses Encephalopathy acute G93.40 Infection due to 2019 novel coronavirus U07.1 Falls frequently R29.6 Diarrhea R19.7 Diarrhea type: unspecified type Polyneuropathy G62.9 Spinal stenosis M48.00 HTN (hypertension) I10 Depression F32.9 Hyperlipidemia E78.5 Hypothyroidism E03.9 DVT prophylaxis Z29.9 (1) Diarrhea Diarrhea type: unspecified type Qualified Code(s): R19.7 - Diarrhea, unspecified
[2019-10-25 15:31] LABS: D Dimer 890 ug/L FEU (0-500)
[2019-10-25 16:00] LABS: C Reactive Protein 2.7 mg/dl (0-0.29)
[2019-10-25 16:10] LABS: Appearance Urine Clear (Clear); Bilirubin Urine Negative (Negative); Blood Urine Negative (Negative); Color Urine Yellow; Glucose Urine UA Negative (Negative); Ketones Urine Negative (Negative); Leukocyte Esterase Urine Negative (Negative); Nitrite Urine Negative (Negative); Protein Urine Negative (Negative); Specific Gravity Urine 1.004 (1.000-1.030); Urobilinogen Urine Negative (Negative); pH Urine 6.5 (4.5-7.5)
[2019-10-25] MEDS ORDERED: ONDANSETRON 4 MG OD TAB PO PRN (18:51)
[2019-10-25] MEDS ORDERED: LORazepam 0.5 MG TAB PO PRN (18:51)
[2019-10-25] MEDS: LACTATED RINGER'S 1,000 ML IV SCH (20:37)
[2019-10-25] MEDS: SERTRALINE HCL 100 MG TABLET PO SCH ×2 (20:39→20:42)
[2019-10-25] MEDS: PANTOprazole 40 MG TAB PO SCH (20:40)
[2019-10-25] MEDS: CHOLECALCIFEROL 1,000 UNITS 25 MCG TAB PO SCH (20:40)
[2019-10-25] MEDS: ENOXAPARIN INJ 30 MG/0.3 ML SYR SQ SCH (23:45)
[2019-10-26] MEDS: LACTATED RINGER'S 1,000 ML IV SCH ×3 (04:54→21:10)
[2019-10-26] MEDS: ACETAMINOPHEN 325 MG TAB PO PRN ×2 (05:23→18:46)
[2019-10-26] MEDS: ATORVASTATIN 10 MG TAB PO SCH (08:52)
[2019-10-26] MEDS: THIAMINE HCL 100 MG TAB PO SCH (08:52)
[2019-10-26] MEDS: IRBESARTAN 150 MG TAB PO SCH (08:52)
[2019-10-26] MEDS: ASPIRIN 81 MG ECTAB PO SCH (08:52)
[2019-10-26] MEDS: PANTOprazole 40 MG TAB PO SCH ×2 (08:52→19:45)
[2019-10-26 09:56] LABS: Basophils # (auto) 0.01 K/uL (0-0.2); Basophils % (auto) 0.4 %; Eosinophils # (auto) 0.01 K/uL (0-0.5); Eosinophils % (auto) 0.4 %; Hematocrit (blood only) 33.4 % (37-47); Hemoglobin 10.9 g/dL (12.0-16.0); Lymphocytes # (auto) 0.89 K/uL (1.2-3.4); Lymphocytes % (auto) 36.2 %; Mean Corpuscular Hemoglobin 30.4 pg (25-34); Mean Corpuscular Hgb Conc 32.6 g/dL (32-36); Mean Corpuscular Volume 93.3 fL (80-100); Monocytes # (auto) 0.11 K/uL (0.11-0.59); Monocytes % (auto) 4.5 %; Neutrophils # (auto) 1.44 K/uL (1.4-6.5); Neutrophils % (auto) 58.5 %; Platelet Count 150 K/uL (130-400); RDW Coefficient of Variation 14.7 % (11.5-14.5); RDW Standard Deviation 50.3 fL (36.4-46.3); Red Blood Count 3.58 M/uL (4.2-5.4); White Blood Count 2.46 K/uL (4.8-10.8)
[2019-10-26] MEDS: ENOXAPARIN INJ 30 MG/0.3 ML SYR SQ SCH ×2 (10:17→21:11)
[2019-10-26 10:57] LABS: Albumin Globulin Ratio 0.9 (0.9-2); Albumin Level 3.1 gm/dl (3.4-5.0); BUN Creatinine Ratio 15.2 (10-20); Bilirubin,Total 0.6 mg/dl (0.2-1); Calcium 8.3 mg/dl (8.5-10.1); Creatinine Clr Calc Pharmacy 63.6 ml/min; Est GFR (African American) 98.4; Est GFR (Non-African American) 84.9; Globulin 3.5 gm/dl (2.5-4.0); Potassium 3.5 mmol/L (3.5-5.1); Total Protein 6.6 gm/dl (6.4-8.2)
--- NOTE | 2019-10-26 13:38 | Hospitalist Progress Note ---
Date of Service October 26, 2019 Assessment & Plan (1) Encephalopathy acute: Suspect secondary to infective encephalopathy from SARS-CoV-2 infection. There was some concern for possible CVA on admission, but confusion has completely resolved at this point Can hold on MRI Ammonia WNL UA, CXR WNL B1, RPR pending B12 is quite low at 188, will start B12 injections daily during admission (first 10/25) (2) Infection due to 2019 novel coronavirus: ALC 0.65 and downtrending, LDH significantly elevated although relatively concerning labs. D-dimer, ferritin, CPK, troponin, CRP below the levels indicating severe infection. She would not be defined as severe disease since this is based on her respiratory status which is currently good, therefore no need for remdesivir/convalescent plasma/dexamethasone at this time. Supportive care with IV fluids, nutritional drinks, PT and OT. No O2 requirements (3) Falls frequently: Looking back at prior PCP notes it appears she has a number of chronic complaints that have been exacerbated by her current illness. She has had longstanding dizziness with syncopal and presyncopal events worked up both by neurology in 2013 and more recently cardiology in 2019. She has a number of listed problems that could be contributing towards this including lorazepam use, lumbar spinal stenosis, polyneuropathy, chronic diarrhea, hypothyroidism, anxiety and depression. Once improving get orthostatics No injuries noted on exam as a result of her fall PT/OT pending (4) Diarrhea: Possibly worse with COVID-19 however she has known history of IBS-D with prior work-up including colonoscopy. Previous gastroenterology visit noted improvement with lactose-free diet. It seems reasonable to reinstate this at this time. Recommend offering antidiarrheals if patient is amenable to this +/- cholestyramine. Low tolerance for CT A/P if patient were to develop abdominal pain suggestive of diverticulitis given prior history of this and known severe diverticulosis. (5) Hypokalemia: Mild on admission at 3.3 Replaced and now at 3.5 (6) Polyneuropathy: Diagnosis in EHR -entered by Dr. Zarco in 2012 although I have no notes to accompany this or EMS/NCS. Suspect contributing towards her frequent falls. B12 level with a.m. labs especially considering she takes pantoprazole 40 mg twice daily and has chronic diarrhea. B12 is quite low at 188, will start B12 injections daily during admission (first 10/25) (7) Spinal stenosis: Suspect this is the cause of her bilateral leg weakness when she walks. This appears longstanding but certainly makes rehabilitation from [place] [id number] more difficult. No indication to repeat imaging during this current illness. (8) HTN (hypertension): Continue irbesartan at current dose 300 mg p.o. every morning, however if orthostatic certainly have to reduce this. (9) Depression: Continue sertraline 100 mg p.o. at bedtime (10) Hyperlipidemia: Continue atorvastatin 10 mg p.o. every morning. Previously intolerant to 20 mg and could consider cutting this altogether if she has persistent myalgias. (11) Hypothyroidism: TSH WNL Appears to be historical diagnosis since not currently taking levothyroxine. (12) DVT prophylaxis: Lovenox 30 mg subcu twice daily Admission and Anticipated Discharge Date Admission Date: October 25, 2019 Subjective Pt states she feels much better. She states she feels tired, but otherwise fine. She is no longer confused. She has been eating without issue. No further diarrhea. Pt denies fever, SOB, chest pain, abd pain, n/v, LE pain or swelling. Review of Systems Review of Systems: Pertinent positives and negatives reviewed in HPI--all others negative Physical Exam Constitutional: WD/WN, vitals as above Eyes: normal visual dodson by confrontation and + anicteric sclerae Neck: normal visual inspection and trachea midline Respiratory: normal respiratory effort, lungs clear to auscultation Cardiovascular: Rate/Rhythm: regular rate and regular rhythm Gastrointestinal (Abdomen): Inspection/Auscultation: abdomen not distended Percussion/Palpation: abdomen soft; abdomen nontender Musculoskeletal: Head/Neck/Chest: normocephalic and head atraumatic negative for edema, peripheral pulses intact Skin: no rashes, warm and dry Neurologic: awake; not confused Speech / Cognition: normal speech Psychiatric: A+Ox3, euthymic affect Results & Data Results & Data ([facility]) Vital Signs (Past 12 Hours) Vital Signs Temp Pulse Resp BP Pulse Ox 10/26/19 10:15 36.7 C 72 20 148/79 H 94 10/26/19 07:24 37.4 C 73 22 106/60 96 10/26/19 04:54 38.2 C H 82 20 159/90 H 90 PG Care Time/CCT Total # of Minutes Spent Total Time Spent with Patient: Total time spent is greater than 50% in coordination of care (as documented) at patient's floor/unit and/or counseling patient: Coding Level of Care Code 31540 Subseq Hosp Care Lvl 3 Diagnoses Encephalopathy acute G93.40 Infection due to 2019 novel coronavirus U07.1 Falls frequently R29.6 Diarrhea R19.7 Diarrhea type: unspecified type Hypokalemia E87.6 Polyneuropathy G62.9 Spinal stenosis M48.00 HTN (hypertension) I10 Depression F32.9 Hyperlipidemia E78.5 Hypothyroidism E03.9 DVT prophylaxis Z29.9 (1) Diarrhea Diarrhea type: unspecified type Qualified Code(s): R19.7 - Diarrhea, unspec ified
[2019-10-26] MEDS: CYANOCOBALAMIN 1000 MCG/ML VIAL IM SCH (15:44)
[2019-10-26] MEDS: SERTRALINE HCL 100 MG TABLET PO SCH (19:45)
[2019-10-26] MEDS: CHOLECALCIFEROL 1,000 UNITS 25 MCG TAB PO SCH (19:46)
[2019-10-27] MEDS: LACTATED RINGER'S 1,000 ML IV SCH ×3 (06:04→20:16)
[2019-10-27] MEDS: IRBESARTAN 150 MG TAB PO SCH (08:06)
[2019-10-27] MEDS: ASPIRIN 81 MG ECTAB PO SCH (08:06)
[2019-10-27] MEDS: ATORVASTATIN 10 MG TAB PO SCH (08:06)
[2019-10-27] MEDS: THIAMINE HCL 100 MG TAB PO SCH (08:06)
[2019-10-27] MEDS: PANTOprazole 40 MG TAB PO SCH ×2 (08:07→20:15)
[2019-10-27] MEDS: CYANOCOBALAMIN 1000 MCG/ML VIAL IM SCH (08:07)
--- NOTE | 2019-10-27 08:34 | Hospitalist Progress Note ---
Date of Service October 27, 2019 Assessment & Plan (1) Encephalopathy acute: Resolvedsuspect secondary to infective encephalopathy from SARS-CoV-2 infection. Initial work-up included-Ammonia WNL UA, CXR WNL B1, RPR pending B12 is quite low at 188, will start B12 injections daily during admission (first 10/25) (2) Infection due to 2019 novel coronavirus: ALC 0.65 and downtrending, LDH significantly elevated although relatively concerning labs. D-dimer, ferritin, CPK, troponin, CRP below the levels indicating severe infection. She would not be defined as severe disease since this is based on her respiratory status which is currently good, therefore no need for remdesivir/convalescent plasma/dexamethasone at this time. Supportive care with IV fluids, nutritional drinks, PT and OT. Low O2 requirements (3) Falls frequently: No injuries noted on exam as a result of her fall PT/OT pending (4) Diarrhea: P she has known history of IBS-D with prior work-up including colonoscopy. Previous gastroenterology visit noted improvement with lactose-free diet. It seems reasonable to reinstate this at this time. Recommend offering antidiarrheals if patient is amenable to this +/- cholestyramine. Unclear what role COVID may have played in her loose bowel movements (5) Hypokalemia: Replete (6) Polyneuropathy: Diagnosis in EHR -entered by Dr. Zarco in 2012 although I have no notes to accompany this or EMS/NCS. Suspect contributing towards her frequent falls. B12 level with a.m. labs especially considering she takes pantoprazole 40 mg twice daily and has chronic diarrhea. B12 is quite low at 188, will start B12 injections daily during admission (first 10/25) (7) Spinal stenosis: Suspect this is the cause of her bilateral leg weakness when she walks. This appears longstanding but certainly makes rehabilitation from COVID-19 more difficult. No indication to repeat imaging during this current illness. (8) HTN (hypertension): Continue irbesartan at current dose 300 mg (9) Depression: Continue sertraline 100 mg p.o. at bedtime (10) Hyperlipidemia: Continue atorvastatin 10 mg p.o. every morning. Previously intolerant to 20 mg and could consider cutting this altogether if she has persistent myalgias. (11) Hypothyroidism: TSH WNL Appears to be historical diagnosis since not currently taking levothyroxine. (12) DVT prophylaxis: Lovenox 30 mg subcu twice daily Admission and Anticipated Discharge Date Admission Date: October 25, 2019 Has been updated 10/27/2019 Subjective Patient is doing better by her account. She is on 1 L of oxygen with saturations in the low 90s she is got a nonproductive cough no other complaints or problems at this time loose bowel movements are typical for her initial at the ordinary Review of Systems Review of Systems: Mild distress and fatigue no headache, blurry or double vision no speech or swallowing issues no chest pain, pressure or palpitations no shortness of breath, still with a nonproductive cough but no wheezes no abdominal pain, nausea or vomiting, diarrhea or constipation no dysuria, hematuria or frequency no focal joint pain or swelling no back pain, CVA tenderness or radicular pain no bruising, bleeding or rashes no focal signs of weakness or numbness or altered sensation no complaints or anxiety or depression Physical Exam Physical Exam: The patient appeared well nourished and normally developed. Vital signs as documented. Head exam is normocephalic atraumatic no scleral icterus Neck is without JVD, thyromegaly, or carotid bruits. Lungs are coarse decreased at the bases Cardiac exam, Rhythm is regular.. No murmurs, rubs or gallops. Abdominal exam reveals normal bowel sounds, soft non tender, no masses Extremities are nonedematous and both pedal pulses are normal. Neurologic exam is alert and oriented, no focal loss of strength or sensation Skin is without bruises or rashes Psychologically is without concerns for anxiety or depression Results & Data Results & Data ([facility]) Vital Signs (Past 12 Hours) Vital Signs Temp Pulse Pulse Resp BP Pulse Ox Pulse Ox 10/27/19 08:02 100.0 F H 73 18 160/80 H 98 10/27/19 06:07 98.4 F 74 22 166/78 H 96 10/27/19 02:50 99.5 F 73 22 164/76 H 94 10/26/19 23:59 95 10/26/19 23:46 87 L 10/26/19 23:44 98.4 F 73 24 148/79 H 95 10/26/19 22:20 64 10/26/19 21:05 98.6 F 75 24 166/78 H 95 PG Care Time/CCT Total # of Minutes Spent Total Time Spent with Patient: Total time spent is greater than 50% in coordination of care (as documented) at patient's floor/unit and/or counseling patient: Coding Level of Care Code 21471 Subseq Hosp Care Lvl 3 Diagnoses Encephalopathy acute G93.40 Infection due to 2019 novel coronavirus U07.1 Falls frequently R29.6 Diarrhea R19.7 Diarrhea type: unspecified type Hypokalemia E87.6 Polyneuropathy G62.9 Spinal stenosis M48.00 HTN (hypertension) I10 Depression F32.9 Hyperlipidemia E78.5 Hypothyroidism E03.9 DVT prophylaxis Z29.9 (1) Diarrhea Diarrhea type: unspecified type Qualified Code(s): R19.7 - Diarrhea, unspec ified
[2019-10-27] MEDS: ENOXAPARIN INJ 30 MG/0.3 ML SYR SQ SCH ×2 (12:35→21:58)
--- NOTE | 2019-10-27 13:21 | Electrocardiogram Report ---
Test Reason : Blood Pressure : / mmHG Vent. Rate : 078 BPM Atrial Rate : 078 BPM P-R Int : 160 ms QRS Dur : 094 ms QT Int : 396 ms P-R-T Axes : 022 -02 097 degrees QTc Int : 451 ms Normal sinus rhythm Left ventricular hypertrophy with repolarization abnormality Abnormal ECG When compared with ECG of 22-OCT-2019 17:30, Nonspecific T wave abnormality has replaced inverted T waves in Lateral leads Confirmed by Butch Rocha ([id number]) on 10/27/2019 1:21:10 PM Referred By: REFERRED SELF Confirmed By:Butch Rocha
[2019-10-27] MEDS: SERTRALINE HCL 100 MG TABLET PO SCH (20:15)
[2019-10-27] MEDS: CHOLECALCIFEROL 1,000 UNITS 25 MCG TAB PO SCH (20:15)
[2019-10-27] MEDS: ACETAMINOPHEN 325 MG TAB PO PRN (21:57)
[2019-10-28] MEDS: LACTATED RINGER'S 1,000 ML IV SCH (04:28)
[2019-10-28] MEDS: IRBESARTAN 150 MG TAB PO SCH (08:03)
[2019-10-28] MEDS: ATORVASTATIN 10 MG TAB PO SCH (08:03)
[2019-10-28] MEDS: THIAMINE HCL 100 MG TAB PO SCH (08:04)
[2019-10-28] MEDS: CYANOCOBALAMIN 1000 MCG/ML VIAL IM SCH (08:04)
[2019-10-28] MEDS: PANTOprazole 40 MG TAB PO SCH (08:04)
[2019-10-28] MEDS: ASPIRIN 81 MG ECTAB PO SCH (08:04)
[2019-10-28 08:35] LABS: Hematocrit (blood only) 31.8 % (37-47); Hemoglobin 10.8 g/dL (12.0-16.0); Lymphocytes # (auto) 0.65 K/uL (1.2-3.4); Lymphocytes % (auto) 27.4 %; Mean Corpuscular Hemoglobin 30.7 pg (25-34); Mean Corpuscular Volume 90.3 fL (80-100); Mean Platelet Volume 9.3 fL (7.4-10.4); Monocytes # (auto) 0.16 K/uL (0.11-0.59); Monocytes % (auto) 6.8 %; Neutrophils # (auto) 1.56 K/uL (1.4-6.5); Neutrophils % (auto) 65.8 %; Platelet Count 149 K/uL (130-400); RDW Coefficient of Variation 13.9 % (11.5-14.5); RDW Standard Deviation 46.4 fL (36.4-46.3); Red Blood Count 3.52 M/uL (4.2-5.4); White Blood Count 2.37 K/uL (4.8-10.8)
[2019-10-28 08:49] LABS: D Dimer 410 ug/L FEU (0-500)
[2019-10-28 09:14] LABS: BUN Creatinine Ratio 12.9 (10-20); Calcium 8.1 mg/dl (8.5-10.1); Est GFR (African American) 100.5; Est GFR (Non-African American) 86.7; Potassium 3.1 mmol/L (3.5-5.1)
[2019-10-28] MEDS: ENOXAPARIN INJ 30 MG/0.3 ML SYR SQ SCH (09:47)
--- NOTE | 2019-10-28 16:34 | Discharge Summary ---
Date of Service October 28, 2019 Admission HPI Per Admitting Provider Gloria Fernandez is a 79-year-old female with history of hypothyroidism, prebiotic diabetes, hypertension, hyperlipidemia, recent and ongoing diagnosis of COVID-19 who presents to the emergency room with ongoing generalized weakness and fall. She had contact with a family who traveled to [place] and became unwell. Symptoms started on October 10 with fever and generalized muscle aches. She followed up with her PCP on a tele visit 10 days later and appeared to be improving. However the following day she had worsening weakness and ongoing to the bathroom and feeling out of it she had a full when having diffuse diarrhea. She was evaluated in the emergency room and discharged after a relatively benign work-up although this did not include a CT abdomen pelvis. Last night she fell to the floor again which prompted her visit here. Unknown if she lost consciousness. Her helped her up. Ongoing multiple episodes of loose stool which is not watery as per the patient. Principal Diagnosis COVID-19 infection Acute hypoxic respiratory failure secondary to COVID-19 infection Metabolic encephalopathy secondary to COVID-19 infection Discharge Exam The patient appeared well Vital signs as documented. Lungs are only with mild coarse rhonchi generally clear Cardiac exam, Rhythm is regular.. No murmurs, rubs or gallops. Abdominal exam reveals normal bowel sounds, soft non tender, no masses Extremities are nonedematous and both pedal pulses are normal. Neurologic exam is alert and oriented, no focal loss of strength or sensation is of chronic daily back pain Skin is without bruises or rashes Psychologically is without concerns for anxiety or depression Discharge Data Allergies Allergy/AdvReac Type Severity Reaction Status Date / Time Penicillins Allergy Severe HIVES Verified 10/22/19 18:37 simvastatin Allergy Intermediate MYALGIA Verified 10/22/19 18:37 adhesive Allergy Mild RASH Verified 10/22/19 18:37 doxycycline AdvReac Intermediate Nausea/Vomi Verified 10/22/19 18:37 ting telithromycin AdvReac Intermediate Nausea/Vomi Verified 10/22/19 18:37 ting Consultations 10/25/19 13:50 ED Decision to Admit Stat Hospital Course (1) Encephalopathy acute: Resolvedsuspect secondary to infective encephalopathy from SARS-CoV-2 infection. Initial work-up included-Ammonia WNL UA, CXR WNL B1, RPR pending B12 is quite low at 188, will start B12 injections daily during admission (first 10/25) (2) Infection due to 2019 novel coronavirus: On admission she was not be defined as severe disease since this is based on her respiratory status which was preserved, therefore no need for remdesivir/convalescent plasma/dexamethasone at time of admission. Patient however developed hypoxia and although her inflammatory labs improved dramatically including normalizing her d-dimer the day of discharge she still r equired oxygen. Patient was given the option to stay in the hospital versus go home with oxygen supplied. Were not providing any other additional treatment. Patient elected to go home we are arranging home oxygen and I did personally call her primary care physician's office to arrange a telemedicine visit to determine how she is doing at home when she returns home. (3) Falls frequently: No injuries noted on exam as a result of her fall PT/OT pending (4) Diarrhea: Pt has known history of IBS-D with prior work-up including colonoscopy. Previous gastroenterology visit noted improvement with lactose-free diet. It seems reasonable to reinstate this at this time. Patient's bowel movements have improved (5) Hypokalemia: Replete (6) Polyneuropathy: Diagnosis in EHR -entered by Dr. Zarco in 2013 although I have no notes to accompany this or EMS/NCS. Suspect contributing towards her frequent falls. B12 level with a.m. labs especially considering she takes pantoprazole 40 mg twice daily and has chronic diarrhea. B12 is quite low at 188,did start B12 injections daily during admission (first 10/25) (7) Spinal stenosis: Suspect this is the cause of her bilateral leg weakness when she walks. This appears longstanding but certainly makes rehabilitation from [place] [id number] more difficult. No indication to repeat imaging during this current illness. (8) HTN (hypertension): Continue irbesartan at current dose 300 mg (9) Depression: Continue sertraline 100 mg p.o. at bedtime (10) Hyperlipidemia: Continue atorvastatin 10 mg p.o. every morning. Previously intolerant to 20 mg and could consider cutting this altogether if she has persistent myalgias. (11) Hypothyroidism: TSH WNL Appears to be historical diagnosis since not currently taking levothyroxine. Total Time Total Time Spent Total Time Spent (In Minutes): It required greater than 30 minutes to prepare this patient for discharge Discharge Plan Discharge Items Patient Disposition: Home - Self-Care Reason For Visit: COVID-19,GENERALIZED WEAKNESS,DIARRHEA Discharge Diagnosis: covid 19 infection low oxygen level secondary to covid infection Condition on Discharge: Fair Activity: Per Instructions section Activity Comment: no intentional exerise while on oxygen Non-emergency contact: Primary Care Provider Call non-emergency contact if: you have any medication questions Follow-up/Referrals: Mark He MD [Primary Care Provider] - Diet: Regular Addtl Attending Provider Instructions: Home Isolation COVID-19 Instructions The following information about Home Isolation is from the CDC Website: https://www.cdc.gov/coronavirus/2019-ncov/hcp/ikcavhoa-pixwaap-juhexr.html Stay home except to get medical care People who are mildly ill with COVID-19 are able to isolate at home during their illness. You should restrict activities outside your home, except for getting medical care. Do not go to work, school, or public areas. Avoid using public transportation, ride-sharing, or taxis. Separate yourself from other people and animals in your home People: As much as possible, you should stay in a specific room and away from other people in your home. Also, you should use a separate bathroom, if available. Animals: You should restrict contact with pets and other animals while you are sick with COVID-19, just like you would around other people. Although there have not been reports of pets or other animals becoming sick with COVID-19, it is still recommended that people sick with COVID-19 limit contact with animals until more information is known about the virus. When possible, have another member of your household care for your animals while you are sick. If you are sick with COVID-19, avoid contact with your pet, including petting, snuggling, being kissed or licked, and sharing food. If you must care for your pet or be around animals while you are sick, wash your hands before and after you interact with pets and wear a face mask. Call ahead before visiting your doctor If you have a medical appointment, call the healthcare provider and tell them that you have or may have COVID-19. This will help the healthcare providers office take steps to keep other people from getting infected or exposed. Wear a face mask You should wear a face mask when you are around other people (e.g., sharing a room or vehicle) or pets and before you enter a healthcare providers office. If you are not able to wear a face mask (for example, because it causes trouble breathing), then people who live with you should not stay in the same room with you, or they should wear a face mask if they enter your room. Cover your coughs and sneezes Cover your mouth and nose with a tissue when you cough or sneeze. Throw used tissues in a lined trash can. Immediately wash your hands with soap and water for at least 20 seconds or, if soap and water are not available, clean your hands with an alcohol-based hand package checker that contains at least 60% alcohol. Clean your hands often Wash your hands often with soap and water for at least 20 seconds, especially after blowing your nose, coughing, or sneezing; going to the bathroom; and before eating or preparing food. If soap and water are not readily available, use an alcohol-based hand package checker with at least 60% alcohol, covering all surfaces of your hands and rubbing them together until they feel dry. Soap and water are the best option if hands are visibly dirty. Avoid touching your eyes, nose, and mouth with unwashed hands. Avoid sharing personal household items You should not share dishes, drinking glasses, cups, eating utensils, towels, or bedding with other people or pets in your home. After using these items, they should be washed thoroughly with soap and water. Clean all high-touch surfaces everyday High touch surfaces include counters, tabletops, doorknobs, bathroom fixtures, toilets, phones, keyboards, tablets, and bedside tables. Also, clean any surfaces that may have blood, stool, or body fluids on them. Use a household cleaning spray or wipe, according to the label instructions. Labels contain instructions for safe and effective use of the cleaning product including precautions you should take when applying the product, such as wearing gloves and making sure you have good ventilation during use of the product. Monitor your symptoms Seek prompt medical attention if your illness is worsening (e.g., difficulty breathing).Beforeseeking care, call your healthcare provider and tell them that you have, or are being evaluated for, COVID-19. Put on a face mask before you enter the facility. These steps will help the healthcare providers office to keep other people in the office or waiting room from getting infected or exposed. Ask your healthcare provider to call the local or state health department. Persons who are placed under active monitoring or facilitated self- monitoring should follow instructions provided by their local health department or occupational health professionals, as appropriate. When working with your local health department check their available hours. If you have a medical emergency and need to call 911, notify the dispatch personnel that you have, or are being evaluated for COVID-19. If possible, put on a face mask before emergency medical services arrive. Discontinuing home isolation Patients with confirmed COVID-19 should remain under home isolation precautions until the risk of secondary transmission to others is thought to be low. The decision to discontinue home isolation precautions should be made on a [id number] basis, in consultation with healthcare providers and state and local health departments. Coronavirus disease 2019 (COVID-19) is a virus that causes a respiratory illness. It is caused by a coronavirus called 2019 novel coronavirus (2019- nCoV). There are many types of coronavirus. Coronaviruses are a very common cause of bronchitis. They may sometimes cause lung infection(pneumonia). Symptoms can range from mild to severe respiratory illness. These viruses are also foundin some animals. COVID-19 was first found in people in [facility], in late 2019. In 2020, several cases of COVID-19 have been confirmed in the [place] Public health officials are working to find the source. How the virus spreads is not yet fully known. It may be spread through droplets of fluid that a person coughs or sneezes into the air. It may be spread if you touch a surface with virus on it, such as a handle or object, and then touch your mouth. What are the symptoms of COVID-19? Some people have no symptoms or mild symptoms. Symptoms may appear 2 to 14 days after contact with the virus. Symptoms can include: Fever Coughing Trouble breathing What are possible complications from COVID-19? In many cases, this virus can cause infection (pneumonia) in both lungs. In some cases, this can cause . How is COVID-19 diagnosed? Your healthcare provider will ask about your symptoms. He or she will also ask about your recent travel and contact with sick people. Testing for the virus is only done through the CDC. If yourhealthcare provider thinks you may have COVID- 19, he or she will work with your local health department and the CDC on testing. Follow all instructions from your healthcare provider. COVID-19 is diagnosed by: Nasal and throat swab. A cotton-tipped swab is wiped inside your nose or throat. This is done to check for viruses in your nasal mucus. Sputum culture. A small sample of mucus coughed from your lungs (sputum) is collected if you have a cough. It is checked for the virus. If you have been diagnosed with COVID-19 Follow all instructions from your healthcare provider. Dont leave your home, except to get medical care. Call your healthcare providers office before going. They can prepare and give you instructions. This will help prevent the virus from spreading. Dont go to work, school, or public areas. Dont use public transport or taxis. Stay away from other people in your home. Have them wear face masks around you. Dont share household items or food. Wear a face mask if you can. This includes at home or in a medical facility. Cover your face with a tissue when you cough or sneeze. Throw the tissue away. Wash your hands. Wash your hands often. Caregivers should: Follow all instructions from healthcare staff. Wear a face mask and protective clothing as advised. Wash hands often. Keep track of the sick persons symptoms. Clean surfaces, fabrics, and laundry thoroughly. Keep other people away from the sick person. When to call your healthcare provider Call your healthcare provider: If youve recently traveled and have symptoms If you have been diagnosed with COVID-19 and your symptoms are worse To learn more To find out more about COVID-19, visit the CDC website at www.cdc.gov/coronavirus/2019-ncov/index.html. [employer]. [address] [place] [address], [place] [address]. All rights reserved. This information is not intended as a substitute for professional medical care. Always follow your healthcare professional's instructions. This information has been adapted from [employer] Pending Studies at Discharge: No Studies:: although your blood work has improved you still require oxygen supplementation at all times, please wear your oxygen at all times until told otherwise from a health care provider Stand-Alone Forms: My [facility], Smoking Cessation Medications and DC Order Prescriptions: Continued pantoprazole 40 mg tablet,delayed release (DR/EC) 40 mg PO BID Qty: 180 RF: 3 lorazepam 0.5 mg tablet 0.5 mg PO DAILY PRN (Reason: Anxiety) Qty: 30 RF: 1 cholecalciferol (vitamin D3) 1,000 unit tablet 1,000 units PO HS RF: 0 aspirin 81 mg Tablet,Delayed Release (Dr/Ec) 81 mg PO QAM RF: 0 atorvastatin 10 mg tablet 10 mg PO QAM RF: 0 sertraline 50 mg tablet 100 mg PO HS RF: 0 irbesartan 300 mg tablet 300 mg PO QAM RF: 0 ondansetron 4 mg tablet,disintegrating 4 mg PO Q6H PRN (Reason: nausea and vomiting) Qty: 14 RF: 0 Discharge Orders: Discharge Order (Routine); Ordered 10/28/19 Ordered By: Fernando Luong Admission Data Admit Date/Time: 10/25/19 15:23 Attending Provider: Fernando Luong Admit Provider: Sanjay Prasad Primary Care Provider: Mark He Other Providers: Sanjay Prasad Other Interventions: Discharge Summary Assessment (RN) Last Done: 10/28/19 16:28 Coding Level of Care Code D/C Day Management >30 mins Diagnoses Encephalopathy acute G93.40 Infection due to 2019 novel coronavirus U07.1 Falls frequently R29.6 Diarrhea R19.7 Diarrhea type: unspecified type Hypokalemia E87.6 Polyneuropathy G62.9 Spinal stenosis M48.00 HTN (hypertension) I10 Depression F32.9 Hyperlipidemia E78.5 Hypothyroidism E03.9
== END 2019-10-28 17:21 | disposition home or self-care (01) ==
LOC: ED 11:56 → 2W 15:23 → SUATTDRO 15:23 → INTOOBSV 15:23 → 2W 18:11

== ENCOUNTER 2020-08-17 12:01 | Inpatient (IN) ==
[2020-08-17] MEDS ORDERED: HYDROmorphone INJ 0.5 MG/0.5 ML SYR IV PRN ×2 (12:25→21:47)
[2020-08-17] MEDS ORDERED: SODIUM CHLORIDE 0.9% 1000ML 1,000 ML IV STA (12:25)
[2020-08-17] MEDS ORDERED: DIPHTHERIA/TETANUS/PERTUSSIS 0.5 ML SYR/VIAL IM ONE (12:25)
[2020-08-17] MEDS ORDERED: ceFAZolin 2000MG 2,000 MG/15 ML SYR IV STA (12:25)
[2020-08-17] MEDS ORDERED: ONDANSETRON INJ 2 MG/ML 2 ML VIAL IV STA (12:25)
[2020-08-17] MEDS ORDERED: KETAMINE HCL INJ 50 MG/ML 10 ML VIAL IV ONE (12:35)
[2020-08-17] MEDS ORDERED: PROPOFOL IV EMULSION 10 MG/ML 20 ML VIAL IV ONE ×3 (12:35→17:24)
[2020-08-17] MEDS ORDERED: KETAMINE HCL INJ 50 MG/ML 10 ML VIAL ONE (12:35)
--- NOTE | 2020-08-17 12:40 | Emergency Department Note ---
Impression & Plan Fracture of tibia and fibula, open, Abnormal EKG, Contusion of elbow, right, Laceration of elbow ED Provider Note NAME: KATIE GALEAS AGE: 80 SEX: F : 1940 ARRIVES VIA: Ambulance INFORMANT: Patient, ED PROVIDER(S): Froilan Cesar DO CHIEF COMPLAINT: Leg pain HPI: The patient is an 80-year-old female who presented to the emergency department for an evaluation after fall. The patient had a fall from a standing position while she was on a stepladder. She was 2 steps up when she fell onto her right side. The patient landed first on her right leg and then fell onto her right side. She had very severe pain in her right ankle and was unable to bear weight. She states there is an open area on her right lower leg. The patient did not strike her head. She does not currently take oral anticoagulation. She states that she received fentanyl prior to arrival which mildly improved her pain. She denies having any nausea or vomiting. She denies having any chest pain or neck pain. She has no headache or loss of con sciousness reported. The patient states she also has an abrasion to her right elbow but does not have pain over her right elbow. She is unsure if she is up-to-date with her tetanus immunization. The patient was trying to brush away wasps but fell accidentally and was not stung by wasps. She states her pain is moderate to severe with any ambulation. ROS: See above HPI for pertinent positives & negatives. A total of 10 systems reviewed and were otherwise negative. PAST MEDICAL HISTORY: See Below PAST SURGICAL HISTORY: See Below FAMILY HISTORY: See Below SOCIAL HISTORY: See Below HOME MEDICATIONS: See Below ALLERGIES: See Below VITALS: See Below PHYSICAL EXAMINATION: GENERAL: The patient is awake and alert. She is very anxious appearing and appears to be in severe pain. EYES: The conjunctivae are clear. The pupils are round and reactive. EARS, NOSE, MOUTH AND THROAT: The nose is without any evidence of any deformity. Mucous membranes are moist. Tongue is midline. NECK: The neck is nontender and supple. Cervical spine was clinically cleared in the emergency department. RESPIRATORY: Normal respiratory effort is noted there is no evidence of wheezing rhonchi or rales CARDIOVASCULAR: Regular rate and rhythm noted there no murmurs rubs or gallops normal S1 normal S2. GASTROINTESTINAL: The abdomen is soft. Abdomen is nontender. BACK: No midline tenderness or or step-off noted range of motion in flexion extension as well as rotation no signs of muscle spasm noted MUSCULOSKELETAL/EXTREMITIES: There is pain as well as deformity over the right m id lower leg. There is an open area over the right lower leg consistent with an open fracture. The open area is over the medial aspect of the right lower leg. This is approximately 4 cm long. There appears to be bone fragments as well as exposed tibia. Pulses are symmetric in both feet. There is no tenderness over the right foot to palpation. There is tenderness over the proximal right fibu lar head. There is no tenderness over the right hip. SKIN: There is no obvious evidence of any rash. There are no petechiae, pallor or cyanosis noted. NEUROLOGIC: Patient is awake alert and oriented x 3. MEDICAL DECISION MAKING: The patient is an 80-year-old female who presented to the emergency department after a fall. The patient fell suffering an injury to her right lower extremity. She had an open tib-fib fracture on clinical evaluation. The p atient was treated with IV pain medication in the emergency department. She was also treated with sedation and reduction of the right lower extremity. I discussed the patient's laboratory and radiographic studies with her. I discussed her case with the on-call orthopedic group as well as the patient's primary orthopedic group. I discussed her case with the on-call [facility] hospitalist. The patient was reevaluated multiple times. After splint placement the patient still had good capillary refill in her toes. Pain was significantly improved. Triage Nursing notes reviewed. Prior medical records reviewed Vital Signs: reviewed and remarkable for elevated blood pressure. Differential diagnosis: Fracture, subluxation, dislocation, contusion, ligamentous injury, neurovascular, compartment syndrome, rhabdomyolysis, as well as other pathologies. ER treatment provided: See below Diagnostics interpreted by me: ECG: EKG was obtained in the emergency department. My interpretation is normal sinus rhythm at 81 bpm. There was no ectopy. Nonspecific T wave abnormalities were noted in the anterior leads with T wave inversions in the high lateral leads. This was compared to a tracing from October 242019. The T wave abnormalities are new compared to the previous tracing. Cardiac Monitoring: An order was placed for continuous cardiac monitoring. The monitor shows a rate of 81 bpm with sinus rhythm. Laboratory studies: As stated above and show below. Imaging studies: See below Consultation(s): 1350: I discussed this case with Bola Daily who is on-call for the orthopedic group. 1400: I discussed this case with Dr. Luong who is on-call for the [facility] hospitalist group. 1410: I discussed this case with Radha who was covering for Dr. Monroy today. They will evaluate the patient in the emergency department. Past Med/Surg History Medical History Chronic back pain Chronic diarrhea COVID-19 Degenerative disc disease Glaucoma bilt H/O gastroesophageal reflux (GERD) History of colon polyps Kidney stones Nausea and vomiting after administration of anesthetic agent Parotitis Spinal stenosis Surgical History History of appendectomy History of bilateral cataract extraction History of biopsy of bladder x1--benign History of cholecystectomy History of colonoscopy History of dilatation and curettage History of esophagogastroduodenoscopy (EGD) History of lumpectomy of right breast benign History of tonsillectomy and adenoidectomy History of total abdominal hysterectomy and bilateral salpingo-oophorectomy History of wisdom tooth extraction Family History Brother Family hx of colon cancer Prostate cancer Mother Breast cancer Heart disease Dementia Father COPD (chronic obstructive pulmonary disease) Dementia Prostate cancer Family/Other Pure hypercholesterolemia Other Cervical cancer Diabetes No family history of adverse response to anesthesia Denies family history of Ovarian cancer Coronary heart disease Social History Smoking Status: Never smoker Second Hand Exposure: Yes (parents smoked); Hx Alcohol Use: No Hx Substance Use: No Preferred Language: Kiswahili Communication Ability: Effective Communication Tools: Other Woods Boss Required: Yes Beliefs That Will Affect Care: None marital status: Current Living Situation: Spouse current occupational status: retired current occupation: She is retired from office work and janitorial work. Other Information That Helps Us Care for You: No Feels Safe at Home: Yes Seatbelt Use: always Assistive Devices: Walker Allergies Allergies Allergy/AdvReac Type Severity Reaction Status Date / Time Penicillins Allergy Severe HIVES Verified 08/17/20 16:10 simvastatin Allergy Intermediate MYALGIA Verified 08/17/20 14:43 adhesive Allergy Mild RASH Verified 08/17/20 14:43 doxycycline AdvReac Intermediate Nausea/Vomi Verified 08/17/20 14:43 ting telithromycin AdvReac Intermediate Nausea/Vomi Verified 08/17/20 14:43 ting Home Meds Home Medications Medication Instructions Recorded Confirmed aspirin 81 mg PO QAM 05/10/18 08/17/20 cholecalciferol (vitamin D3) 25 1,000 units PO HS tab 10/21/18 08/17/20 mcg (1,000 unit) tablet cyanocobalamin (vitamin B-12) 500 mcg PO HS tab 12/29/19 08/17/20 1,000 mcg sublingual tablet irbesartan [Avapro] 150 mg PO QAM 08/17/20 08/17/20 pantoprazole 40 mg PO QAM 08/17/20 08/17/20 potassium chloride 20 meq PO QAM 08/17/20 08/17/20 rosuvastatin 10 mg PO HS 08/17/20 08/17/20 sertraline 100 mg PO QAM 08/17/20 08/17/20 Results & Data (ED) Vital Signs Vital Signs - 24 hr 08/17/20 12:09 08/17/20 12:12 08/17/20 12:16 Temperature Temperature Source Pulse Rate 70 68 Pulse Rate [Apical] Pulse Rate [Left Finger] 71 Pulse Rate from SpO2 Sensor 67 Pulse Rhythm Regular Pulse Rhythm [Apical] Pulse Rhythm [Left Finger] Regular Pulse Strength Normal Pulse Strength [Left Finger] Normal Respiratory Rate 23 19 17 Respiratory Effort / Characteristics Non-Labored Spontaneous Non-Labored Spontaneous Respiratory Depth Normal Normal Respiratory Pattern Regular Regular Blood Pressure 134/46 L Blood Pressure [Left Arm] Blood Pressure [Right Arm] 134/46 L Blood Pressure Mean 75 Blood Pressure Mean [Left Arm] Blood Pressure Mean [Right Arm] 75 Blood Pressure Position Lying Blood Pressure Position [Right Arm] Lying Pulse Oximetry 97 96 97 Oxygen Delivery Method Room Air Room Air Oxygen Flow Rate Sepsis Recent Fever Within 48 Hours No Sepsis New/Unexplained Change in Mental Status No Sepsis Action Taken by Nursing No Action Required End-Tidal CO2 End Tidal CO2 (18-54mmHg) 08/17/20 12:20 08/17/20 12:30 08/17/20 12:40 Temperature Temperature Source Pulse Rate 69 70 70 Pulse Rate [Apical] Pulse Rate [Left Finger] Pulse Rate from SpO2 Sensor 69 70 70 Pulse Rhythm Pulse Rhythm [Apical] Pulse Rhythm [Left Finger] Pulse Strength Pulse Strength [Left Finger] Respiratory Rate 17 20 Respiratory Effort / Characteristics Respiratory Depth Respiratory Pattern Blood Pressure Blood Pressure [Left Arm] Blood Pressure [Right Arm] Blood Pressure Mean Blood Pressure Mean [Left Arm] Blood Pressure Mean [Right Arm] Blood Pressure Position Blood Pressure Position [Right Arm] Pulse Oximetry 90 94 94 Oxygen Delivery Method Oxygen Flow Rate Sepsis Recent Fever Within 48 Hours Sepsis New/Unexplained Change in Mental Status Sepsis Action Taken by Nursing End-Tidal CO2 End Tidal CO2 (18-54mmHg) 08/17/20 12:50 08/17/20 12:56 08/17/20 13:00 Temperature Temperature Source Pulse Rate 79 72 75 Pulse Rate [Apical] Pulse Rate [Left Finger] 74 Pulse Rate from SpO2 Sensor 79 74 Pulse Rhythm Regular Pulse Rhythm [Apical] Pulse Rhythm [Left Finger] Pulse Strength Pulse Strength [Left Finger] Respiratory Rate 20 18 Respiratory Effort / Characteristics Respiratory Depth Respiratory Pattern Blood Pressure Blood Pressure [Left Arm] Blood Pressure [Right Arm] 134/58 L Blood Pressure Mean Blood Pressure Mean [Left Arm] Blood Pressure Mean [Right Arm] 83 Blood Pressure Position Blood Pressure Position [Right Arm] Pulse Oximetry 93 95 100 Oxygen Delivery Method Room Air Nasal Cannula Oxygen Flow Rate 2 Sepsis Recent Fever Within 48 Hours Sepsis New/Unexplained Change in Mental Status Sepsis Action Taken by Nursing End-Tidal CO2 End Tidal CO2 (18-54mmHg) 25 08/17/20 13:05 08/17/20 13:08 08/17/20 13:10 Temperature Temperature Source Pulse Rate 73 72 79 Pulse Rate [Apical] Pulse Rate [Left Finger] Pulse Rate from SpO2 Sensor 73 74 Pulse Rhythm Pulse Rhythm [Apical] Pulse Rhythm [Left Finger] Pulse Strength Pulse Strength [Left Finger] Respiratory Rate 18 18 Respiratory Effort / Characteristics Respiratory Depth Respiratory Pattern Blood Pressure 132/82 Blood Pressure [Left Arm] Blood Pressure [Right Arm] 132/82 171/66 H Blood Pressure Mean 98 Blood Pressure Mean [Left Arm] Blood Pressure Mean [Right Arm] Blood Pressure Position Blood Pressure Position [Right Arm] Pulse Oximetry 100 99 100 Oxygen Delivery Method Nasal Cannula Nasal Cannula Oxygen Flow Rate 2 2 Sepsis Recent Fever Within 48 Hours Sepsis New/Unexplained Change in Mental Status Sepsis Action Taken by Nursing End-Tidal CO2 25 27 End Tidal CO2 (18-54mmHg) 26 25 08/17/20 13:12 08/17/20 13:15 08/17/20 13:20 Temperature Temperature Source Pulse Rate 81 83 83 Pulse Rate [Apical] Pulse Rate [Left Finger] Pulse Rate from SpO2 Sensor 80 82 80 Pulse Rhythm Pulse Rhythm [Apical] Pulse Rhythm [Left Finger] Pulse Strength Pulse Strength [Left Finger] Respiratory Rate 22 22 Respiratory Effort / Characteristics Respiratory Depth Respiratory Pattern Blood Pressure 171/66 H 170/75 H 164/66 H Blood Pressure [Left Arm] Blood Pressure [Right Arm] 170/75 H 164/66 H Blood Pressure Mean 101 106 98 Blood Pressure Mean [Left Arm] Blood Pressure Mean [Right Arm] Blood Pressure Position Blood Pressure Position [Right Arm] Pulse Oximetry 100 100 100 Oxygen Delivery Method Nasal Cannula Nasal Cannula Oxygen Flow Rate 2 2 Sepsis Recent Fever Within 48 Hours Sepsis New/Unexplained Change in Mental Status Sepsis Action Taken by Nursing End-Tidal CO2 27 25 27 End Tidal CO2 (18-54mmHg) 25 25 08/17/20 13:25 08/17/20 13:30 08/17/20 13:36 Temperature Temperature Source Pulse Rate 81 81 76 Pulse Rate [Apical] Pulse Rate [Left Finger] Pulse Rate from SpO2 Sensor 84 81 79 Pulse Rhythm Pulse Rhythm [Apical] Pulse Rhythm [Left Finger] Pulse Strength Pulse Strength [Left Finger] Respiratory Rate 22 Respiratory Effort / Characteristics Respiratory Depth Respiratory Pattern Blood Pressure 154/89 H 168/73 H 137/56 L Blood Pressure [Left Arm] Blood Pressure [Right Arm] 154/89 H Blood Pressure Mean 110 104 83 Blood Pressure Mean [Left Arm] Blood Pressure Mean [Right Arm] Blood Pressure Position Blood Pressure Position [Right Arm] Pulse Oximetry 100 100 100 Oxygen Delivery Method Nasal Cannula Oxygen Flow Rate Sepsis Recent Fever Within 48 Hours Sepsis New/Unexplained Change in Mental Status Sepsis Action Taken by Nursing End-Tidal CO2 34 30 36 End Tidal CO2 (18-54mmHg) 26 08/17/20 13:40 08/17/20 13:41 08/17/20 15:00 Temperature Temperature Source Pulse Rate 75 74 Pulse Rate [Apical] Pulse Rate [Left Finger] 70 Pulse Rate from SpO2 Sensor 76 75 Pulse Rhythm Pulse Rhythm [Apical] Pulse Rhythm [Left Finger] Pulse Strength Pulse Strength [Left Finger] Respiratory Rate 18 Respiratory Effort / Characteristics Respiratory Depth Respiratory Pattern Blood Pressure 163/68 H Blood Pressure [Left Arm] Blood Pressure [Right Arm] 122/52 L Blood Pressure Mean 99 Blood Pressure Mean [Left Arm] Blood Pressure Mean [Right Arm] 75 Blood Pressure Position Blood Pressure Position [Right Arm] Pulse Oximetry 100 98 99 Oxygen Delivery Method Room Air Nasal Cannula Oxygen Flow Rate 2 Sepsis Recent Fever Within 48 Hours Sepsis New/Unexplained Change in Mental Status Sepsis Action Taken by Nursing End-Tidal CO2 14 11 End Tidal CO2 (18-54mmHg) 08/17/20 15:44 08/17/20 20:24 Temperature 36.7 C 36.5 C Temperature Source Oral Oral Pulse Rate Pulse Rate [Apical] 96 H Pulse Rate [Left Finger] 72 Pulse Rate from SpO2 Sensor Pulse Rhythm Pulse Rhythm [Apical] Regular Pulse Rhythm [Left Finger] Pulse Strength Pulse Strength [Left Finger] Respiratory Rate 18 19 Respiratory Effort / Characteristics Non-Labored Spontaneous Non-Labored Spontaneous Respiratory Depth Normal Normal Respiratory Pattern Regular Regular Blood Pressure Blood Pressure [Left Arm] 146/65 H Blood Pressure [Right Arm] 104/58 L Blood Pressure Mean Blood Pressure Mean [Left Arm] 92 Blood Pressure Mean [Right Arm] 73 Blood Pressure Position Blood Pressure Position [Right Arm] Semi-fowlers Pulse Oximetry 95 100 Oxygen Delivery Method Room Air Nasal Cannula Oxygen Flow Rate 2 Sepsis Recent Fever Within 48 Hours Sepsis New/Unexplained Change in Mental Status Sepsis Action Taken by Nursing End-Tidal CO2 End Tidal CO2 (18-54mmHg) Home Medications Current Medication List: was personally reviewed by me Laboratory Data Attestation: I reviewed the patient's lab results. Result diagrams: 08/18/20 06:04 08/18/20 06:04 Lab Results 08/17/20 08/17/20 08/17/20 Range/Units 12:43 12:43 14:18 WBC 12.42 H (4.8-10.8) K/uL RBC 3.91 L (4.2-5.4) M/uL Hgb 11.9 L (12.0-16.0) g/dL Hct 35.6 L (37-47) % MCV 91.0 (80-100) fL MCH 30.4 (25-34) pg MCHC 33.4 (32-36) g/dL RDW Std Deviation 44.3 (36.4-46.3) fL RDW Coeff of Juwan 13.3 (11.5-14.5) % Plt Count 201 (130-400) K/uL MPV 10.1 (7.4-10.4) fL Immature Gran % (Auto) 0.2 % Neut % (Auto) 77.0 % Lymph % (Auto) 16.7 % Hinds % (Auto) 5.6 % Eos % (Auto) 0.2 % Baso % (Auto) 0.3 % Neut # (Auto) 9.56 H (1.4-6.5) K/uL Lymph # (Auto) 2.08 (1.2-3.4) K/uL Hinds # (Auto) 0.69 H (0.11-0.59) K/uL Eos # (Auto) 0.02 (0-0.5) K/uL Baso # (Auto) 0.04 (0-0.2) K/uL Immature Gran # (Auto) 0.03 H (0.00-0.02) K/uL Sodium 140 (136-145) mmol/L Potassium 4.5 (3.5-5.1) mmol/L Chloride 109 H (98-107) mmol/L Carbon Dioxide 26 (21-32) mmol/L Anion Gap 5.0 (3-11) BUN 16 (7-18) mg/dl Creatinine 1.01 (0.6-1.2) mg/dl Est Cr Clr Drug Dosing 38.2 ml/min Est GFR ( Amer) 60.9 ml/min Est GFR (Non-Af Amer) 52.5 ml/min BUN/Creatinine Ratio 15.5 (10-20) Glucose 107 H (70-99) mg/dl Calcium 8.7 (8.5-10.1) mg/dl Total Bilirubin 0.7 (0.2-1) mg/dl AST 38 H (15-37) U/L ALT 23 (12-78) U/L Alkaline Phosphatase 56 (45-117) U/L Troponin I < 0.015 (0-0.045) ng/ml Total Protein 7.2 (6.4-8.2) gm/dl Albumin 4.1 (3.4-5.0) gm/dl Globulin 3.1 (2.5-4.0) gm/dl Albumin/Globulin Ratio 1.3 (0.9-2) Lipase 116 (73-393) U/L Specimen Hemolysis COVID-19 Eval Order Covid19 at [facility] SARS-CoV-2 (PCR) (Negative) 08/17/20 Range/Units 14:18 WBC (4.8-10.8) K/uL RBC (4.2-5.4) M/uL Hgb (12.0-16.0) g/dL Hct (37-47) % MCV (80-100) fL MCH (25-34) pg MCHC (32-36) g/dL RDW Std Deviation (36.4-46.3) fL RDW Coeff of Juwan (11.5-14.5) % Plt Count (130-400) K/uL MPV (7.4-10.4) fL Immature Gran % (Auto) % Neut % (Auto) % Lymph % (Auto) % Hinds % (Auto) % Eos % (Auto) % Baso % (Auto) % Neut # (Auto) (1.4-6.5) K/uL Lymph # (Auto) (1.2-3.4) K/uL Hinds # (Auto) (0.11-0.59) K/uL Eos # (Auto) (0-0.5) K/uL Baso # (Auto) (0-0.2) K/uL Immature Gran # (Auto) (0.00-0.02) K/uL Sodium (136-145) mmol/L Potassium (3.5-5.1) mmol/L Chloride (98-107) mmol/L Carbon Dioxide (21-32) mmol/L Anion Gap (3-11) BUN (7-18) mg/dl Creatinine (0.6-1.2) mg/dl Est Cr Clr Drug Dosing ml/min Est GFR ( Amer) ml/min Est GFR (Non-Af Amer) ml/min BUN/Creatinine Ratio (10-20) Glucose (70-99) mg/dl Calcium (8.5-10.1) mg/dl Total Bilirubin (0.2-1) mg/dl AST (15-37) U/L ALT (12-78) U/L Alkaline Phosphatase (45-117) U/L Troponin I (0-0.045) ng/ml Total Protein (6.4-8.2) gm/dl Albumin (3.4-5.0) gm/dl Globulin (2.5-4.0) gm/dl Albumin/Globulin Ratio (0.9-2) Lipase (73-393) U/L Specimen Hemolysis COVID-19 Eval Order SARS-CoV-2 (PCR) NEGATIVE (Negative) Administered Medications Acetaminophen (Acetaminophen 500 Mg Tab) 1,000 mg PO Q8 [facility] Stop: 09/16/20 21:59 Last Admin: 08/18/20 05:58 Dose: 1,000 mg Documented by: [id number] Admin: 08/18/20 00:54 Dose: 1,000 mg Documented by: [id number] Aspirin (Aspirin 81 Mg Ectab) 81 mg PO BID [facility] Stop: 09/16/20 21:46 Last Admin: 08/18/20 08:50 Dose: 81 mg Documented by: [id number] Admin: 08/18/20 00:53 Dose: 81 mg Documented by: [id number] Docusate Sodium (Docusate Sodium 100 Mg Cap) 100 mg PO BID [facility] Stop: 09/16/20 21:46 Last Admin: 08/18/20 08:52 Dose: 100 mg Documented by: [id number] Admin: 08/18/20 00:54 Dose: 100 mg Documented by: [id number] Cefazolin Sodium (Ancef 2000mg) 2,000 mg in 15 mls @ 3.75 mls/min IV Q8H [facility]; Protocol Stop: 08/20/20 00:00 Last Admin: 08/18/20 08:50 Dose: 3.75 mls/min Documented by: [id number] Admin: 08/18/20 00:54 Dose: 3.75 mls/min Documented by: [id number] Ondansetron HCl (Ondansetron Inj 2 Mg/Ml 2 Ml Vial) 4 mg IV Q6H PRN PRN Reason: Nausea Stop: 09/16/20 21:46 Last Admin: 08/18/20 01:05 Dose: 4 mg Documented by: [id number] Pantoprazole Sodium (Pantoprazole 40 Mg Tab) 40 mg PO QAM [facility] Stop: 09/17/20 08:59 Last Admin: 08/18/20 08:51 Dose: 40 mg Documented by: [id number] Rosuvastatin Calcium (Rosuvastatin Calcium 10 Mg Tab) 10 mg PO HS [facility] Stop: 09/16/20 21:46 Last Admin: 08/18/20 00:53 Dose: 10 mg Documented by: [id number] Sertraline HCl (Sertraline Hcl 100 Mg Tablet) 100 mg PO QAM [facility] Stop: 09/17/20 08:59 Last Admin: 08/18/20 08:51 Dose: 100 mg Documented by: [id number] Discontinued Medications Bupivacaine HCl (Bupivacaine 0.5 % 5 Mg/1 Ml Mpf 30ml Vial) Confirm Administered Dose 30 ml .ROUTE .STK-MED ONE Stop: 08/17/20 15:23 Last Admin: 08/17/20 19:41 Dose: 15 ml Documented by: [id number] Cefazolin Sodium (Cefazolin 2,000 Mg/15 Ml Iv Push) Confirm Administered Dose 2,000 mg IV .STK-MED ONE Stop: 08/17/20 15:58 Last Admin: 08/17/20 16:47 Dose: 2,000 mg Documented by: [id number] Diphtheria/Pertussis/Tetanus Vacc (Diphtheria/Tetanus/Pertussis 0.5 Ml Syr/Vial) 0.5 ml IM .ONCE ONE Stop: 08/17/20 12:26 Last Admin: 08/17/20 12:40 Dose: 0.5 ml Documented by: [id number] Ergocalciferol (Ergocalciferol 50,000 Units 1250 Mcg Cap) 50,000 units PO ONCE ONE Stop: 08/18/20 08:01 Last Admin: 08/18/20 08:50 Dose: 50,000 units Documented by: [id number] Gelatin (Gelatin Sponge Sz 100) Confirm Administered Dose 1 ea .ROUTE .STK-MED ONE Stop: 08/17/20 17:38 Last Admin: 08/17/20 18:43 Dose: 1 ea Documented by: [id number] Hydromorphone HCl (Hydromorphone Inj 0.5 Mg/0.5 Ml Syr) 0.5 mg IV Q15M PRN PRN Reason: Pain Stop: 08/31/20 12:24 Last Admin: 08/17/20 12:37 Dose: 0.5 mg Documented by: [id number] Sodium Chloride (Nss 1000ml) 1,000 mls @ 999 mls/hr IV .Q1H1M STA Stop: 08/17/20 13:25 Last Infusion: 08/17/20 13:44 Dose: 0 mls/hr Documented by: [id number] Admin: 08/17/20 12:36 Dose: 999 mls/hr Documented by: [id number] Cefazolin Sodium (Ancef 2000mg) 2,000 mg in 15 mls @ 3.75 mls/min IV NOW STA Stop: 08/17/20 12:28 Last Admin: 08/17/20 13:02 Dose: 3.75 mls/min Documented by: [id number] Sodium Chloride (Nss 1000ml) 1,000 mls @ 100 mls/hr IV .Q10H NEELAM Stop: 08/18/20 01:14 Last Infusion: 08/18/20 01:14 Dose: 0 mls/hr Documented by: [id number] Admin: 08/17/20 15:17 Dose: 100 mls/hr Documented by: [id number] Cefazolin Sodium (Ancef 2000mg) 2,000 mg in 15 mls @ 3.75 mls/min IV PREOP ONE Stop: 08/17/20 15:58 Last Admin: 08/17/20 16:24 Dose: 3.75 mls/min Documented by: [id number] Ketamine HCl (Ketamine Hcl Inj 50 Mg/Ml 10 Ml Vial) Confirm Administered Dose 500 mg .ROUTE .STK-MED ONE Stop: 08/17/20 12:36 Last Increment: 08/17/20 13:05 Dose: 30 mg Documented by: [id number] Ketamine HCl (Ketamine Hcl Inj 50 Mg/Ml 10 Ml Vial) 30 mg IV TODAY@1235 ONE Stop: 08/17/20 12:36 Last Admin: 08/17/20 18:44 Dose: Not Given Documented by: [id number] Lidocaine/Epinephrine (Lidocaine/Epinephrine 1% 20 Ml Vial) Confirm Administered Dose 20 ml .ROUTE .STK-MED ONE Stop: 08/17/20 15:23 Last Admin: 08/17/20 19:43 Dose: 15 ml Documented by: [id number] Morphine Sulfate (Morphine Sulfate 2 Mg/Ml Carp) 2 mg IV Q4 PRN PRN Reason: Pain Stop: 08/31/20 15:03 Last Admin: 08/17/20 15:21 Dose: 2 mg Documented by: [id number] Ondansetron HCl (Ondansetron Inj 2 Mg/Ml 2 Ml Vial) 4 mg IV NOW STA Stop: 08/17/20 12:26 Last Admin: 08/17/20 12:36 Dose: 4 mg Documented by: [id number] Propofol (Propofol Iv Emulsion 10 Mg/Ml 20 Ml Vial) Confirm Administered Dose 200 mg IV .STK-MED ONE Stop: 08/17/20 12:36 Last Admin: 08/17/20 13:05 Dose: 30 mg Documented by: [id number] Cosigned by: [id number] Propofol (Propofol Iv Emulsion 10 Mg/Ml 20 Ml Vial) 30 mg IV TODAY@1236 ONE Stop: 08/17/20 12:37 Last Admin: 08/17/20 18:45 Dose: Not Given Documented by: [id number] Imaging Data Radiologist's Impression: Chest X-Ray 08/17/20 12:25 XR chest 1V portable CLINICAL HISTORY: Chest Pain COMPARISON STUDY: Chest radiograph December 25, 2019. FINDINGS: There is mild elevation of the right hemidiaphragm. Lung volumes are normal. Lungs are clear. There is no pneumothorax or pleural effusion. Cardiac size is normal. Mediastinal contours are normal. There is no evidence for pulmonary edema. IMPRESSION: No acute cardiopulmonary findings. ACT 112: Negative or not required by law. Electronically signed by: Ld Branch M.D. 08/17/2020 1:34 PM Elbow X-Ray 08/17/20 12:25 RIGHT ELBOW 3 VIEWS CLINICAL HISTORY: Fall with right elbow injury. FINDINGS: 3 portable views of the right elbow are obtained. No prior studies are available for comparison at the time of dictation. The skeletal structures are osteopenic. No fracture is identified. The joint spaces are maintained. No joint effusion is identified. Dorsal soft tissue edema is noted in the upper forearm. IMPRESSION: There is no radiographic evidence of right elbow fracture. Electronically signed by: Conor Faye M.D. 08/17/2020 1:21 PM Tibia/Fibula X-Ray 08/17/20 12:25 XR tibia fibula RT 2V HISTORY: 80 years-old Female fall acute pain of the right lower leg status post fall COMPARISON: None TECHNIQUE: 2 views of the right tibia and fibula FINDINGS: Acute comminuted fractures of the distal tibial and fibular shafts. There is apex volar and lateral angulation with posterior displacement measuring up to 1.6 cm and lateral displacement measuring up to 1.4 cm. Moderate associated soft tissue swelling. Acute nondisplaced transverse fracture of the proximal fibular neck. IMPRESSION: 1. Acute comminuted, displaced and angulated fractures of the distal tibial and fibular shafts. 2. Acute nondisplaced proximal fibular fracture. ACT 112: Negative or not required by law. The above report was generated using voice recognition software. It may contain grammatical, syntax or spelling errors. Electronically signed by: Valentin Duran M.D. 08/17/2020 1:24 PM Tibia/Fibula X-Ray 08/17/20 13:19 XR tibia fibula RT 2V CLINICAL HISTORY: post reduction COMPARISON: August 17, 2020 at 12:42 hours DISCUSSION: Redemonstration of comminuted fracture at the mid-distal aspect of the right ti misty and fibula with interval decrease in displacement and shortening. Mild medial apex angulation is seen. Previously seen anterior apex angulation is significantly improved. Nondisplaced fracture of the proximal-mid tibial metadiaphysis appear more conspicuous than on prior study. Redemonstration of slightly displaced fracture of the proximal fibula. Soft tissue edema is seen. Overall evaluation is slightly limited due to overlying cast. IMPRESSION: Postreduction changes as detailed above. ACT 112: Negative or not required by law. The above report was generated using voice recognition software. It may contain grammatical, syntax or spelling errors. Electronically signed by: Kymberly George DO 08/17/2020 2:17 PM Discharge Plan Visit Data Chief Complaint: Ankle Pain ED Provider: Froilan Cesar Discharge Problem: Fracture of tibia and fibula, open, Abnormal EKG, Contusion of elbow, right, Laceration of elbow Patient Disposition: Still a Patient Condition: Good Discharge Instructions Interventions: ED Discharge Assessment Last Done: 08/17/20 15:45 Discharge Problem: Fracture of tibia and fibula, open Qualifiers: Encounter type: initial encounter Open fracture type: open type I or II Laterality: right Qualified Code(s): S82.201B - Unspecified fracture of shaft of right tibia, initial encounter for open fracture type I or II Contusion of elbow, right Qualifiers: Encounter type: initial encounter Qualified Code(s): S50.01XA - Contusion of right elbow, initial encounter Laceration of elbow Qualifiers: Encounter type: initial encounter Laterality: right Qualified Code(s): S51.011A - Laceration without foreign body of right elbow, initial encounter
--- NOTE | 2020-08-17 12:40 | Emergency Department Note ---
Post Sedation Assessment Vital Signs Pulse Pulse Resp BP BP Pulse Ox 08/17/20 13:41 74 98 08/17/20 13:40 75 163/68 H 100 08/17/20 13:36 76 137/56 L 100 08/17/20 13:30 81 168/73 H 100 08/17/20 13:25 81 22 154/89 H 154/89 H 100 08/17/20 13:20 83 22 164/66 H 164/66 H 100 08/17/20 13:15 83 22 170/75 H 170/75 H 100 08/17/20 13:12 81 171/66 H 100 08/17/20 13:10 79 18 171/66 H 100 08/17/20 13:08 72 132/82 99 08/17/20 13:05 73 18 132/82 100 08/17/20 13:00 75 74 18 134/58 L 100 08/17/20 12:56 72 20 95 08/17/20 12:50 79 93 08/17/20 12:40 70 94 08/17/20 12:30 70 20 94 08/17/20 12:20 69 17 90 08/17/20 12:16 68 17 97 08/17/20 12:12 70 19 134/46 L 96 08/17/20 12:09 71 23 134/46 L 97 08/17/20 12:06 68 13 134/46 L 96 Recovery Score Activity: Moves 4 extremities Respiration: Deep Breath/Cough Circulation: +/-20% PreAnes Value Consciousness: Fully Awake Oxygen Saturation: > 92% On Room Air Discharge Sedation Level of Care: Phase I Unexpected Event: None Post Sedation Plan On clinical assessment, the patient appears to have tolerated the sedation without complications. Patient is recovering as anticipated. Patient will continue to be monitored by nursing and may be discharged when sedation discharge criteria are met per below protocol. Upon Completions of procedure up to 15 minutes continue every 5 minute vital signs and the P.A.R. score; then discharge to a Phase I or Fast Track to Phase II per the following guidelines: * Discharge Patient to appropriate Phase II area if PAR is 8 or greater or return to pre- procedure baseline. The post - procedure orders will be as directed. * If PAR score is less than 8 or not return to pre-procedure baseline then patient will follow Phase I monitoring till PAR is reached for Phase II. The Phase I may be done in procedure room or may call to secure a Phase I area. * If naloxone or flumazenil are used for reversal, hold in Phase I for continued monitoring from when last reversal dose was given for a minimum of 60 minutes or longer pending the nurse and/or physician discretion of patient condition before discharge to Phase II. Please call the Sedation Physician to re-evaluate and complete post-note for discharge to Phase II area. Do NOT discharge from procedure sedation or Phase 1 until post- sedation evaluation note is complete by procedure /sedation MD Sedation Discharge Instructions to be given to the patient at discharge to home. : Fracture of tibia and fibula, open Qualifiers: Encounter type: initial encounter Open fracture type: open type I or II Laterality: right Qualified Code(s): S82.201B - Unspecified fracture of shaft of right tibia, initial encounter for open fracture type I or II Contusion of elbow, right Qualifiers: Encounter type: initial encounter Qualified Code(s): S50.01XA - Contusion of right elbow, initial encounter Laceration of elbow Qualifiers: Encounter type: initial encounter Laterality: right Qualified Code(s): S51.011A - Laceration without foreign body of right elbow, initial encounter
--- NOTE | 2020-08-17 12:41 | Emergency Department Note ---
Pre Sedation Assessment Vital Signs Pulse Pulse Resp BP BP Pulse Ox 08/17/20 13:41 74 98 08/17/20 13:40 75 163/68 H 100 08/17/20 13:36 76 137/56 L 100 08/17/20 13:30 81 168/73 H 100 08/17/20 13:25 81 22 154/89 H 154/89 H 100 08/17/20 13:20 83 22 164/66 H 164/66 H 100 08/17/20 13:15 83 22 170/75 H 170/75 H 100 08/17/20 13:12 81 171/66 H 100 08/17/20 13:10 79 18 171/66 H 100 08/17/20 13:08 72 132/82 99 08/17/20 13:05 73 18 132/82 100 08/17/20 13:00 75 74 18 134/58 L 100 08/17/20 12:56 72 20 95 08/17/20 12:50 79 93 08/17/20 12:40 70 94 08/17/20 12:30 70 20 94 08/17/20 12:20 69 17 90 08/17/20 12:16 68 17 97 08/17/20 12:12 70 19 134/46 L 96 08/17/20 12:09 71 23 134/46 L 97 08/17/20 12:06 68 13 134/46 L 96 Cardiovascular RRR, no murmur, no edema + regular rate; no tachycardic no murmur Respiratory normal respiratory effort, lungs clear to auscultation + respiratory effort normal; no retractions, no cough and no tachypneic Pre-Sedation Airway Assessment Smoking Status: Never smoker Hx Sleep Apnea: No Short, Thick Neck: No Thyromental Distance: > or= 3.5 Finger Breadths Oral Cavity: no Loose Teeth and no Chipped Teeth Mallampati Class: I ASA: ASA3 NPO Status Date of Last Intake of Fluids: 08/17/20 Time of Last Intake of Fluids: 08:00 Date of Last Intake of Solid Food: 08/17/20 Time of Last Intake of Solid Foods: 08:00 Procedure Planning Contraindications for Sedation: none Current Medications Reviewed: Yes Notes The planned sedation has been discussed with the patient. Informed Consent was obtained. I have identified the patient, determined the appropriateness of sedation and have assessed the patient immediately prior to the procedure. All medicine(s) and interventions are by my order. : Fracture of tibia and fibula, open Qualifiers: Encounter type: initial encounter Open fracture type: open type I or II Laterality: right Qualified Code(s): S82.201B - Unspecified fracture of shaft of right tibia, initial encounter for open fracture type I or II Contusion of elbow, right Qualifiers: Encounter type: initial encounter Qualified Code(s): S50.01XA - Contusion of right elbow, initial encounter Laceration of elbow Qualifiers: Encounter type: initial encounter Laterality: right Qualified Code(s): S51.011A - Laceration without foreign body of right elbow, initial encounter
[2020-08-17 12:55] LABS: Basophils # (auto) 0.04 K/uL (0-0.2); Basophils % (auto) 0.3 %; Eosinophils # (auto) 0.02 K/uL (0-0.5); Eosinophils % (auto) 0.2 %; Hematocrit (blood only) 35.6 % (37-47); Hemoglobin 11.9 g/dL (12.0-16.0); Immature Granulocytes # (auto) 0.03 K/uL (0.00-0.02); Immature Granulocytes % (auto) 0.2 %; Lymphocytes # (auto) 2.08 K/uL (1.2-3.4); Lymphocytes % (auto) 16.7 %; Mean Corpuscular Hemoglobin 30.4 pg (25-34); Mean Corpuscular Hgb Conc 33.4 g/dL (32-36); Mean Platelet Volume 10.1 fL (7.4-10.4); Monocytes # (auto) 0.69 K/uL (0.11-0.59); Monocytes % (auto) 5.6 %; Neutrophils # (auto) 9.56 K/uL (1.4-6.5); Platelet Count 201 K/uL (130-400); RDW Coefficient of Variation 13.3 % (11.5-14.5); RDW Standard Deviation 44.3 fL (36.4-46.3); Red Blood Count 3.91 M/uL (4.2-5.4); White Blood Count 12.42 K/uL (4.8-10.8)
--- NOTE | 2020-08-17 13:22 | XRay Report ---
RIGHT ELBOW 3 VIEWS CLINICAL HISTORY: Fall with right elbow injury. FINDINGS: 3 portable views of the right elbow are obtained. No prior studies are available for compar aubrie at the time of dictation. The skeletal structures are osteopenic. No fracture is identified. The joint spaces are maintained. No joint effusion is identified. Dorsal soft tissue edema is noted in t he upper forearm. IMPRESSION: There is no radiographic evidence of right elbow fracture. Electronically signed by: Conor Faye M.D. 08/17/2020 1:21 PM
--- NOTE | 2020-08-17 13:26 | XRay Report ---
XR tibia fibula RT 2V HISTORY: 80 years-old Female fall acute pain of the right lower leg status post fall COMPARISON: None TECHNIQUE: 2 views of the right tibia and fibula FINDINGS: Acute comminuted fractures of the distal tibial and fibular shafts. There is apex volar and lateral a ngulation with posterior displacement measuring up to 1.6 cm and lateral displacement measuring up to 1.4 cm. Moderate associated soft tissue swelling. Acute nondisplaced transverse fracture of the prox imal fibular neck. IMPRESSION: 1. Acute comminuted, displaced and angulated fractures of the distal tibial and fibular shafts. 2. Acute nondisplaced proximal fibular fracture. ACT 112: Negative or not required by law. The above report was generated using voice recognition software. It may contain grammatical, syntax o r spelling errors. Electronically signed by: Valentin Duran M.D. 08/17/2020 1:24 PM
[2020-08-17 13:32] LABS: Alanine Aminotransferase 23 U/L (12-78); Albumin Globulin Ratio 1.3 (0.9-2); Albumin Level 4.1 gm/dl (3.4-5.0); Alkaline Phosphatase 56 U/L (45-117); Aspartate Aminotransferase 38 U/L (15-37); BUN Creatinine Ratio 15.5 (10-20); Bilirubin,Total 0.7 mg/dl (0.2-1); Blood Urea Nitrogen 16 mg/dl (7-18); Calcium 8.7 mg/dl (8.5-10.1); Carbon Dioxide 26 mmol/L (21-32); Chloride 109 mmol/L (98-107); Creatinine Clr Calc Pharmacy 38.2 ml/min; Est GFR (African American) 60.9 ml/min; Est GFR (Non-African American) 52.5 ml/min; Globulin 3.1 gm/dl (2.5-4.0); Glucose 107 mg/dl (70-99); Lipase 116 U/L (73-393); Potassium 4.5 mmol/L (3.5-5.1); Sodium 140 mmol/L (136-145); Total Protein 7.2 gm/dl (6.4-8.2); Troponin I < 0.015 ng/ml (0-0.045)
--- NOTE | 2020-08-17 13:36 | XRay Report ---
XR chest 1V portable CLINICAL HISTORY: Chest Pain COMPARISON STUDY: Chest radiograph December 25, 2019. FINDINGS: There is mild elevation of the right hemidiaphragm. Lung volumes are normal. Lungs are oniel r. There is no pneumothorax or pleural effusion. Cardiac size is normal. Mediastinal contours are nor mal. There is no evidence for pulmonary edema. IMPRESSION: No acute cardiopulmonary findings. ACT 112: Negative or not required by law. Electronically signed by: Ld Branch M.D. 08/17/2020 1:34 PM
--- NOTE | 2020-08-17 14:19 | XRay Report ---
XR tibia fibula RT 2V CLINICAL HISTORY: post reduction COMPARISON: August 17, 2020 at 12:42 hours DISCUSSION: Redemonstration of comminuted fracture at the mid-distal aspect of the right tibia and fibula with i nterval decrease in displacement and shortening. Mild medial apex angulation is seen. Previously seen anterior apex angulation is significantly improved. Nondisplaced fracture of the proximal-mid tibial metadiaphysis appear more conspicuous than on prior study. Redemonstration of slightly displaced fracture of the proximal fibula. Soft tissue edema is seen. Overall evaluation is slightly limited due to overlying cast. IMPRESSION: Postreduction changes as detailed above. ACT 112: Negative or not required by law. The above report was generated using voice recognition software. It may contain grammatical, syntax o r spelling errors. Electronically signed by: Kymberly George DO 08/17/2020 2:17 PM
--- NOTE | 2020-08-17 15:00 | History & Physical Report ---
Date of Service August 17, 2020 Assessment & Plan (1) Fracture of tibia and fibula, open: Patient seen by Dr. Hart the emergency room and is likely going to the OR for emergent washout and repair Given her age and medical problems she is a moderate perioperative risk however the patient needs cystoscopy repaired urgently and she should proceed to the operating room (2) Abnormal EKG: EKG shows normal sinus rhythm with biphasic T waves in V2 this is slightly different from previous EKG she has no cardiac symptoms to corroborate with this and does not list any presyncopal symptoms with regards to her fall (3) Asthma: Patient is a history of asthma typically quiescent did have occasional wheezes on exam will offer albuterol as needed if needed in the perioperative period (4) Hyperlipidemia: Patient is on rosuvastatin for dyslipidemia and this will be continued (5) HTN (hypertension): Regarding hypertension the patient typically takes Avapro 150 this may be held in the perioperative day 1 given how her blood pressure response. Patient typically takes aspirin for cardiovascular risk reduction this will be held in the perioperative period (6) Depression: In regard to her depression she takes sertraline 100 this will be continued (7) DVT prophylaxis: DVT prophylaxis is postop based on surgical preference. 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 She also has an incidental puncture wound of her right proximal forearm on the volar aspect which is bandaged and reportedly has no associated fractures. Prefall the patient's had no chest pain pressure she has no dyspnea on exertion she has no orthopnea she has no bowel or bladder changes. She has previously had nausea postoperatively from anesthesia but no other problems with any anesthesia. She does not typically have abnormal bruising bleeding epistaxis or bleeding from her bowel or bladder. She would be considered moderate surgical risk only because of her age and history of hypertension prediabetes and peripheral artery disease however given the urgent nature of her compound fracture with open fracture the patient should proceed to the operating room for washout and repair Allergies Allergy/AdvReac Type Severity Reaction Status Date / Time Penicillins Allergy Severe HIVES Verified 08/17/20 14:43 simvastatin Allergy Intermediate MYALGIA Verified 08/17/20 14:43 adhesive Allergy Mild RASH Verified 08/17/20 14:43 doxycycline AdvReac Intermediate Nausea/Vomi Verified 08/17/20 14:43 ting telithromycin AdvReac Intermediate Nausea/Vomi Verified 08/17/20 14:43 ting Home Medications Medication Instructions Recorded Confirmed Type aspirin 81 mg PO QAM 05/10/18 05/20/20 History cholecalciferol (vitamin D3) 25 1,000 units PO HS tab 10/21/18 05/20/20 History mcg (1,000 unit) tablet cyanocobalamin (vitamin B-12) 500 mcg PO DAILY tab 12/29/19 05/20/20 History 1,000 mcg sublingual tablet irbesartan [Avapro] 150 mg PO DAILY 08/17/20 History pantoprazole 40 mg PO QAM 08/17/20 08/17/20 History potassium chloride 20 meq PO QAM 08/17/20 08/17/20 History rosuvastatin 10 mg PO HS 08/17/20 08/17/20 History sertraline 100 mg PO QAM 08/17/20 08/17/20 History Past Med/Surg History Medical History (Updated 08/17/20 @ 14:58 by Fernando Luong MD) Chronic back pain Chronic diarrhea COVID-19 Degenerative disc disease Glaucoma bilt H/O gastroesophageal reflux (GERD) History of colon polyps Kidney stones Nausea and vomiting after administration of anesthetic agent Parotitis Spinal stenosis Surgical History History of appendectomy History of bilateral cataract extraction History of biopsy of bladder x1--benign History of cholecystectomy History of colonoscopy History of dilatation and curettage History of esophagogastroduodenoscopy (EGD) History of lumpectomy of right breast benign History of tonsillectomy and adenoidectomy History of total abdominal hysterectomy and bilateral salpingo-oophorectomy History of wisdom tooth extraction Family History Brother Family hx of colon cancer Prostate cancer Mother Breast cancer Heart disease Dementia Father COPD (chronic obstructive pulmonary disease) Dementia Prostate cancer Family/Other Pure hypercholesterolemia Other Cervical cancer Diabetes No family history of adverse response to anesthesia Denies family history of Ovarian cancer Coronary heart disease Social History Smoking Status: Never smoker Second Hand Exposure: Yes (parents smoked); Hx Alcohol Use: No Hx Substance Use: No Preferred Language: Nicaraguan Communication Ability: Effective Communication Tools: Other Butadiene Converter Utility Operator Required: Yes Beliefs That Will Affect Care: None marital status: Current Living Situation: Spouse current occupational status: retired current occupation: She is retired from office work and janitorial work. Feels Safe at Home: Yes Seatbelt Use: always Assistive Devices: Glasses and Oxygen - Continuous Review of Systems Review of Systems: Mild distress and fatigue no headache, blurry or double vision no speech or swallowing issues no chest pain, pressure or palpitations no orthopnea no shortness of breath, cough or wheezes no dyspnea on exertion no abdominal pain, nausea or vomiting, diarrhea or constipation no dysuria, hematuria or frequency Significant right distal tanner ankle and foot pain, significant right elbow pain no back pain, CVA tenderness or radicular pain Bruising to her right elbow and open laceration to her right lower leg no focal signs of weakness or numbness or altered sensation claims to have intact sensation of her foot no complaints of anxiety or depression.. Physical Exam Physical Exam: The patient appeared well nourished and normally developed. She is in mild to moderate pain Vital signs as documented. Head exam is normocephalic atraumatic Neck is without JVD, thyromegaly, or carotid bruits. Lungs patient had occasional wheezes which cleared with deep inspiration, no focal loss of breath sounds Cardiac exam, Rhythm is regular.. No murmurs, rubs or gallops. Abdominal exam reveals normal bowel sounds, soft non tender, no masses Right elbow was inspected with a puncture wound with hematoma approximately the size of a $0.50 piece surrounding a small puncture wound the size of approximately 2 to 3 mm. Patient's right distal leg was wrapped it was unwrapped in my presence with Dr. Hart in the room there was a large deep laceration with visible fatty tissue exposed to the medial aspect of her leg at the distal tibia area approximately 8 to 10 cm similar to the malleolus Neurologic exam is alert and oriented, no focal loss of strength or sensation Psychologically is without concerns for anxiety or depression Results & Data Results & Data ([facility]) Vital Signs (Past 12 Hours) Vital Signs Pulse Pulse Resp BP BP Pulse Ox 08/17/20 13:41 74 98 08/17/20 13:40 75 163/68 H 100 08/17/20 13:36 76 137/56 L 100 08/17/20 13:30 81 168/73 H 100 08/17/20 13:25 81 22 154/89 H 154/89 H 100 08/17/20 13:20 83 22 164/66 H 164/66 H 100 08/17/20 13:15 83 22 170/75 H 170/75 H 100 08/17/20 13:12 81 171/66 H 100 08/17/20 13:10 79 18 171/66 H 100 08/17/20 13:08 72 132/82 99 08/17/20 13:05 73 18 132/82 100 08/17/20 13:00 75 74 18 134/58 L 100 08/17/20 12:56 72 20 95 08/17/20 12:50 79 93 08/17/20 12:40 70 94 08/17/20 12:30 70 20 94 08/17/20 12:20 69 17 90 08/17/20 12:16 68 17 97 08/17/20 12:12 70 19 134/46 L 96 08/17/20 12:09 71 23 134/46 L 97 08/17/20 12:06 68 13 134/46 L 96 EKG shows some sinus rhythm with some biphasic T waves I did communicate this abnormal EKG to anesthesia on-call Chest X-Ray 08/17/20 12:25 XR chest 1V portable CLINICAL HISTORY: Chest Pain COMPARISON STUDY: Chest radiograph December 25, 2019. FINDINGS: There is mild elevation of the right hemidiaphragm. Lung volumes are normal. Lungs are clear. There is no pneumothorax or pleural effusion. Cardiac size is normal. Mediastinal contours are normal. There is no evidence for pulmonary edema. IMPRESSION: No acute cardiopulmonary findings. Electronically signed by: Ld Branch M.D. 08/17/2020 1:34 PM Elbow X-Ray 08/17/20 12:25 RIGHT ELBOW 3 VIEWS CLINICAL HISTORY: Fall with right elbow injury. FINDINGS: 3 portable views of the right elbow are obtained. No prior studies are available for comparison at the time of dictation. The skeletal structures are osteopenic. No fracture is identified. The joint spaces are maintained. No joint effusion is identified. Dorsal soft tissue edema is noted in the upper forearm. IMPRESSION: There is no radiographic evidence of right elbow fracture. Electronically signed by: Conor Faye M.D. 08/17/2020 1:21 PM Tibia/Fibula X-Ray 08/17/20 12:25 XR tibia fibula RT 2V HISTORY: 80 years-old Female fall acute pain of the right lower leg status post fall COMPARISON: None TECHNIQUE: 2 views of the right tibia and fibula FINDINGS: Acute comminuted fractures of the distal tibial and fibular shafts. There is apex volar and lateral angulation with posterior displacement measuring up to 1.6 cm and lateral displacement measuring up to 1.4 cm. Moderate associated soft tissue swelling. Acute nondisplaced transverse fracture of the proximal fibular neck. IMPRESSION: 1. Acute comminuted, displaced and angulated fractures of the distal tibial and fibular shafts. 2. Acute nondisplaced proximal fibular fracture. Electronically signed by: Valentin Duran M.D. 08/17/2020 1:24 PM Tibia/Fibula X-Ray 08/17/20 13:19 XR tibia fibula RT 2V CLINICAL HISTORY: post reduction COMPARISON: August 17, 2020 at 12:42 hours DISCUSSION: Redemonstration of comminuted fracture at the mid-distal aspect of the right tibia and fibula with interval decrease in displacement and shortening. Mild medial apex angulation is seen. Previously seen anterior apex angulation is significantly improved. Nondisplaced fracture of the proximal-mid tibial metadiaphysis appear more conspicuous than on prior study. Redemonstration of slightly displaced fracture of the proximal fibula. Soft tissue edema is seen. Overall evaluation is slightly limited due to overlying cast. IMPRESSION: Postreduction changes as detailed above. PG Care Time/CCT Total # of Minutes Spent Total Time Spent with Patient: Total time spent is greater than 50% in coordination of care (as documented) at patient's floor/unit and/or counseling patient: Coding Level of Care Code 78203 Initial Inpt Care Lvl 3 Diagnoses Fracture of tibia and fibula, open S82.201B; S82.401B Encounter type: initial encounter Laterality: right Open fracture type: open type I or II Abnormal EKG R94.31 Asthma J45.909 Hyperlipidemia E78.5 HTN (hypertension) I10 Depression F32.9 DVT prophylaxis Z29.9 (1) Fracture of tibia and fibula, open Encounter type: initial encounter Laterality: right Open fracture type: open type I or II Qualified Code(s): S82.201B - Unspecified fracture of shaft of right tibia, initial encounter for open fracture type I or II; S82.401B - Unspecified fracture of shaft of right fibula, initial encounter for open fracture type I or II
[2020-08-17] MEDS ORDERED: MoRPHine SULFATE 4 MG/ML 1 ML CARP\\VIAL IV PRN (15:04)
[2020-08-17] MEDS ORDERED: MoRPHine SULFATE 2 MG/ML CARP IV PRN (15:04)
[2020-08-17] MEDS ORDERED: SODIUM CHLORIDE 0.9% 1000ML 1,000 ML IV SCH (15:15)
[2020-08-17] MEDS ORDERED: BUPIVACAINE 0.5 % 5 MG/1 ML MPF 30ML VIAL ONE (15:22)
[2020-08-17] MEDS ORDERED: LIDOCAINE/EPINEPHRINE 1% 20 ML VIAL ONE (15:22)
--- NOTE | 2020-08-17 15:35 | Emergency Department Note ---
ED Visit Note Patient was seen by Dr. Cesar. Please read his note for HPI, ROS, PE and plan of care. I was asked to assist with reduction/splinting. I was present to assist Dr. Cesar with traction of the lower extremity to aid in reduction as well as splint application. Patient was neurovascular intact post splinting with intact cap refill. Please refer to further documentation regarding her stay. . : Fracture of tibia and fibula, open Qualifiers: Encounter type: initial encounter Open fracture type: open type I or II Laterality: right Qualified Code(s): S82.201B - Unspecified fracture of shaft of right tibia, initial encounter for open fracture type I or II Contusion of elbow, right Qualifiers: Encounter type: initial encounter Qualified Code(s): S50.01XA - Contusion of right elbow, initial encounter Laceration of elbow Qualifiers: Encounter type: initial encounter Laterality: right Qualified Code(s): S51.011A - Laceration without foreign body of right elbow, initial encounter
[2020-08-17] MEDS ORDERED: fentaNYL citrate 100 MCG/2 ML VIAL ONE (15:42)
--- NOTE | 2020-08-17 15:43 | Orthopedic Consultation ---
Date of Consultation August 17, 2020 Assessment & Plan (1) Fracture of tibia and fibula, open: After a lengthy discussion with the patient regarding the above findings, recommended emergent I&D and ORIF right Tib-fib. The risks were discussed and the consent form was signed. She will be admitted to hospital service. She is NPO and last ate 8 am. She understands that she may need additional surgery and be in the hospital for at least 48 hours for IV antibiotics. Present on Admission?: Yes (2) Laceration of elbow: RICE Cover with Dry Sterile dressing. WBAT Present on Admission?: Yes History of Present Illness Reason for Consultation: Open Right Tib-Fib fractures Requesting Physician: Dr. Hart Attending Physician: Dr. Luong History of Present Illness Gloria is a pleasant 80 year old female who fell off a step stool today cleaning her windows injuring her right lower leg and forearm. She was brought to the ED and found to have an open right Tib- fib. Her fractures were reduced and splinted by the ED and then I was consulted for further evaluation and treatment. She denies any other injuries, CP, SOB, LOC. Allergies Allergy/AdvReac Type Severity Reaction Status Date / Time Penicillins Allergy Severe HIVES Verified 08/17/20 14:43 simvastatin Allergy Intermediate MYALGIA Verified 08/17/20 14:43 adhesive Allergy Mild RASH Verified 08/17/20 14:43 doxycycline AdvReac Intermediate Nausea/Vomi Verified 08/17/20 14:43 ting telithromycin AdvReac Intermediate Nausea/Vomi Verified 08/17/20 14:43 ting Home Medications Medication Instructions Recorded Confirmed Type aspirin 81 mg PO QAM 05/10/18 08/17/20 History cholecalciferol (vitamin D3) 25 1,000 units PO HS tab 10/21/18 08/17/20 History mcg (1,000 unit) tablet cyanocobalamin (vitamin B-12) 500 mcg PO HS tab 12/29/19 08/17/20 History 1,000 mcg sublingual tablet irbesartan [Avapro] 150 mg PO QAM 08/17/20 08/17/20 History pantoprazole 40 mg PO QAM 08/17/20 08/17/20 History potassium chloride 20 meq PO QAM 08/17/20 08/17/20 History rosuvastatin 10 mg PO HS 08/17/20 08/17/20 History sertraline 100 mg PO QAM 08/17/20 08/17/20 History Patient History Medical History Chronic back pain Chronic diarrhea COVID-19 Degenerative disc disease Glaucoma bilt H/O gastroesophageal reflux (GERD) History of colon polyps Kidney stones Nausea and vomiting after administration of anesthetic agent Parotitis Spinal stenosis Surgical History History of appendectomy History of bilateral cataract extraction History of biopsy of bladder x1--benign History of cholecystectomy History of colonoscopy History of dilatation and curettage History of esophagogastroduodenoscopy (EGD) History of lumpectomy of right breast benign History of tonsillectomy and adenoidectomy History of total abdominal hysterectomy and bilateral salpingo-oophorectomy History of wisdom tooth extraction Family History Brother Family hx of colon cancer Prostate cancer Mother Breast cancer Heart disease Dementia Father COPD (chronic obstructive pulmonary disease) Dementia Prostate cancer Family/Other Pure hypercholesterolemia Other Cervical cancer Diabetes No family history of adverse response to anesthesia Denies family history of Ovarian cancer Coronary heart disease Social History Smoking Status: Never smoker Second Hand Exposure: Yes (parents smoked); Hx Alcohol Use: No Hx Substance Use: No Preferred Language: Serbian Communication Ability: Effective Communication Tools: Other Medical Affairs Director Required: Yes Beliefs That Will Affect Care: None marital status: Current Living Situation: Spouse current occupational status: retired current occupation: She is retired from office work and janitorial work. Feels Safe at Home: Yes Seatbelt Use: always Assistive Devices: Glasses and Oxygen - Continuous Review of Systems Review of Systems: All systems reviewed & are unremarkable except as noted in HPI & below Physical Exam Physical Exam: RLE: Sensation to light touch is intact. Wiggling her toes. BCR < 2. Calf is soft and non-tender. Jagged laceration distal third medial aspect lower leg. RUE: Abrasion and small puncture over proximal forearm. No evidence of infection. Results & Data ([facility]) Vital Signs (Past 12 Hours) Vital Signs Pulse Pulse Resp BP BP Pulse Ox 08/17/20 15:00 70 18 122/52 L 99 08/17/20 13:41 74 98 08/17/20 13:40 75 163/68 H 100 08/17/20 13:36 76 137/56 L 100 08/17/20 13:30 81 168/73 H 100 08/17/20 13:25 81 22 154/89 H 154/89 H 100 08/17/20 13:20 83 22 164/66 H 164/66 H 100 08/17/20 13:15 83 22 170/75 H 170/75 H 100 08/17/20 13:12 81 171/66 H 100 08/17/20 13:10 79 18 171/66 H 100 08/17/20 13:08 72 132/82 99 08/17/20 13:05 73 18 132/82 100 08/17/20 13:00 75 74 18 134/58 L 100 08/17/20 12:56 72 20 95 08/17/20 12:50 79 93 08/17/20 12:40 70 94 08/17/20 12:30 70 20 94 08/17/20 12:20 69 17 90 08/17/20 12:16 68 17 97 08/17/20 12:12 70 19 134/46 L 96 08/17/20 12:09 71 23 134/46 L 97 08/17/20 12:06 68 13 134/46 L 96 Laboratory Results 08/17/20 08/17/20 08/17/20 Range/Units 14:18 14:18 12:43 WBC (4.8-10.8) K/uL RBC (4.2-5.4) M/uL Hgb (12.0-16.0) g/dL Hct (37-47) % MCV (80-100) fL MCH (25-34) pg MCHC (32-36) g/dL RDW Std Deviation (36.4-46.3) fL RDW Coeff of Juwan (11.5-14.5) % Plt Count (130-400) K/uL MPV (7.4-10.4) fL Immature Gran % (Auto) % Neut % (Auto) % Lymph % (Auto) % Dare % (Auto) % Eos % (Auto) % Baso % (Auto) % Neut # (Auto) (1.4-6.5) K/uL Lymph # (Auto) (1.2-3.4) K/uL Dare # (Auto) (0.11-0.59) K/uL Eos # (Auto) (0-0.5) K/uL Baso # (Auto) (0-0.2) K/uL Immature Gran # (Auto) (0.00-0.02) K/uL Sodium 140 (136-145) mmol/L Potassium 4.5 (3.5-5.1) mmol/L Chloride 109 H (98-107) mmol/L Carbon Dioxide 26 (21-32) mmol/L Anion Gap 5.0 (3-11) BUN 16 (7-18) mg/dl Creatinine 1.01 (0.6-1.2) mg/dl Est Cr Clr Drug Dosing 38.2 ml/min Est GFR ( Amer) 60.9 ml/min Est GFR (Non-Af Amer) 52.5 ml/min BUN/Creatinine Ratio 15.5 (10-20) Glucose 107 H (70-99) mg/dl Calcium 8.7 (8.5-10.1) mg/dl Total Bilirubin 0.7 (0.2-1) mg/dl AST 38 H (15-37) U/L ALT 23 (12-78) U/L Alkaline Phosphatase 56 (45-117) U/L Troponin I < 0.015 (0-0.045) ng/ml Total Protein 7.2 (6.4-8.2) gm/dl Albumin 4.1 (3.4-5.0) gm/dl Globulin 3.1 (2.5-4.0) gm/dl Albumin/Globulin Ratio 1.3 (0.9-2) Lipase 116 (73-393) U/L Specimen Hemolysis COVID-19 Eval Order Covid19 at [facility] SARS-CoV-2 (PCR) NEGATIVE (Negative) 08/17/20 Range/Units 12:43 WBC 12.42 H (4.8-10.8) K/uL RBC 3.91 L (4.2-5.4) M/uL Hgb 11.9 L (12.0-16.0) g/dL Hct 35.6 L (37-47) % MCV 91.0 (80-100) fL MCH 30.4 (25-34) pg MCHC 33.4 (32-36) g/dL RDW Std Deviation 44.3 (36.4-46.3) fL RDW Coeff of Juwan 13.3 (11.5-14.5) % Plt Count 201 (130-400) K/uL MPV 10.1 (7.4-10.4) fL Immature Gran % (Auto) 0.2 % Neut % (Auto) 77.0 % Lymph % (Auto) 16.7 % Dare % (Auto) 5.6 % Eos % (Auto) 0.2 % Baso % (Auto) 0.3 % Neut # (Auto) 9.56 H (1.4-6.5) K/uL Lymph # (Auto) 2.08 (1.2-3.4) K/uL Dare # (Auto) 0.69 H (0.11-0.59) K/uL Eos # (Auto) 0.02 (0-0.5) K/uL Baso # (Auto) 0.04 (0-0.2) K/uL Immature Gran # (Auto) 0.03 H (0.00-0.02) K/uL Sodium (136-145) mmol/L Potassium (3.5-5.1) mmol/L Chloride (98-107) mmol/L Carbon Dioxide (21-32) mmol/L Anion Gap (3-11) BUN (7-18) mg/dl Creatinine (0.6-1.2) mg/dl Est Cr Clr Drug Dosing ml/min Est GFR ( Amer) ml/min Est GFR (Non-Af Amer) ml/min BUN/Creatinine Ratio (10-20) Glucose (70-99) mg/dl Calcium (8.5-10.1) mg/dl Total Bilirubin (0.2-1) mg/dl AST (15-37) U/L ALT (12-78) U/L Alkaline Phosphatase (45-117) U/L Troponin I (0-0.045) ng/ml Total Protein (6.4-8.2) gm/dl Albumin (3.4-5.0) gm/dl Globulin (2.5-4.0) gm/dl Albumin/Globulin Ratio (0.9-2) Lipase (73-393) U/L Specimen Hemolysis COVID-19 Eval Order SARS-CoV-2 (PCR) (Negative) Diagnostic Findings I reviewed the pre and post reduction of the right Tib-Fib which show a segmental Tibia fracture, proximal non-displaced, displaced comminuted distal third Tib fib. Minimally displaced proximal fib fracture. I reviewed the 3 views of the right elbow which showed no evidence of fracture or dislocation. (1) Fracture of tibia and fibula, open Encounter type: initial encounter Laterality: right Open fracture type: open type I or II Qualified Code(s): S82.201B - Unspecified fracture of shaft of right tibia, initial encounter for open fracture type I or II; S82.401B - Unspecified fracture of shaft of right fibula, initial encounter for open fracture type I or II (2) Laceration of elbow Encounter type: initial encounter Laterality: right Qualified Code(s): S51.011A - Laceration without foreign body of right elbow, initial encounter
[2020-08-17] MEDS ORDERED: ceFAZolin 2000MG 2,000 MG/15 ML SYR IV ONE (15:55)
[2020-08-17] MEDS ORDERED: ceFAZolin 2,000 MG/15 ML IV PUSH IV ONE (15:57)
[2020-08-17] MEDS ORDERED: ONDANSETRON INJ 2 MG/ML 2 ML VIAL IV PRN ×2 (16:06→21:47)
[2020-08-17] MEDS ORDERED: ATROPINE SULFATE 0.1 MG/ML 10ML SYR IV PRN (16:06)
[2020-08-17] MEDS ORDERED: ePHEDrine sulfate 50 MG/ML AMP IV PRN (16:06)
[2020-08-17] MEDS ORDERED: HYDROmorphone INJ 2 MG/ML SYR/VIAL IV PRN (16:06)
[2020-08-17] MEDS ORDERED: fentaNYL citrate 100 MCG/2 ML VIAL IV PRN (16:06)
--- NOTE | 2020-08-17 16:06 | Anesthesiology Consultation ---
Date of Service August 17, 2020 Assessment & Plan ASA [id number] Proposed Anesthesia Anesthesia Type: General Risk / Benefits Reviewed With: PT / POA / Parent / Guardian, Accepts Plan and Informed Consent Obtained History Surgery Operation Date: 08/17/20 13:40 Proposed Procedures p Open Right Segmental Tib Fib, Intramedullary Nail - Crispin Kitty Hart MD Height/Weight Height: 5 ft 2 in Weight: 61 kg Allergies Allergy/AdvReac Type Severity Reaction Status Date / Time Penicillins Allergy Severe HIVES Verified 08/17/20 14:43 simvastatin Allergy Intermediate MYALGIA Verified 08/17/20 14:43 adhesive Allergy Mild RASH Verified 08/17/20 14:43 doxycycline AdvReac Intermediate Nausea/Vomi Verified 08/17/20 14:43 ting telithromycin AdvReac Intermediate Nausea/Vomi Verified 08/17/20 14:43 ting Medications Home Medications Medication Instructions Recorded Confirmed Last Taken aspirin 81 mg PO QAM 05/10/18 08/17/20 08/17/20 cholecalciferol (vitamin D3) 25 1,000 units PO HS tab 10/21/18 08/17/20 08/16/20 mcg (1,000 unit) tablet cyanocobalamin (vitamin B-12) 500 mcg PO HS tab 12/29/19 08/17/20 08/16/20 1,000 mcg sublingual tablet irbesartan [Avapro] 150 mg PO QAM 08/17/20 08/17/20 08/17/20 pantoprazole 40 mg PO QAM 08/17/20 08/17/20 08/17/20 potassium chloride 20 meq PO QAM 08/17/20 08/17/20 08/17/20 rosuvastatin 10 mg PO HS 08/17/20 08/17/20 08/16/20 sertraline 100 mg PO QAM 08/17/20 08/17/20 08/17/20 Active Medications Generic Name Dose Route Start Last Admin Trade Name Freq PRN Reason Stop Dose Admin Hydromorphone HCl 0.5 mg 08/17/20 12:25 08/17/20 12:37 Hydromorphone Inj 0.5 Mg/0.5 Ml Syr IV 08/31/20 12:24 0.5 mg Q15M PRN Administration Pain Sodium Chloride 1,000 mls @ 100 mls/hr 08/17/20 15:15 08/17/20 15:17 Nss 1000ml IV 08/18/20 01:14 100 mls/hr .Q10H NEELAM Administration Morphine Sulfate 2 mg 08/17/20 15:04 08/17/20 15:21 Morphine Sulfate 2 Mg/Ml Carp IV 08/31/20 15:03 2 mg Q4 PRN Administration Pain NPO Date Last Intake of Fluids: 08/17/20 Time Last Intake of Fluids: 09:00 Last Intake of Fluids Comment: water Date Last Intake of Solids: 08/17/20 Time Last Intake of Solids: 09:00 Past Medical History Medical History Chronic back pain Chronic diarrhea COVID-19 Degenerative disc disease Glaucoma bilt H/O gastroesophageal reflux (GERD) History of colon polyps Kidney stones Nausea and vomiting after administration of anesthetic agent Parotitis Spinal stenosis Exercise / Class Metabolic Activity II 4-5 Yardwork/Stairs/Walk up hill Past Family History Family History Brother Family hx of colon cancer Prostate cancer Mother Breast cancer Heart disease Dementia Father COPD (chronic obstructive pulmonary disease) Dementia Prostate cancer Family/Other Pure hypercholesterolemia Other Cervical cancer Diabetes No family history of adverse response to anesthesia Denies family history of Ovarian cancer Coronary heart disease Past Surgical History Surgical History History of appendectomy History of bilateral cataract extraction History of biopsy of bladder x1--benign History of cholecystectomy History of colonoscopy History of dilatation and curettage History of esophagogastroduodenoscopy (EGD) History of lumpectomy of right breast benign History of tonsillectomy and adenoidectomy History of total abdominal hysterectomy and bilateral salpingo-oophorectomy History of wisdom tooth extraction Past Anesthesia History No Hx of Anesthesia Complications and No Family Hx of Anesthesia Complications History of PONV No Hx of PONV and No Hx of Motion Sickness Social History Smoking Status: Never smoker Hx Alcohol Use: No Hx Substance Use: No substance use type: does not use Review of Systems denies fever/cough/ colds/ chest pain/ SOB/ CHE denies CHE Physical Exam Vital Signs Last Vital Signs Temp 36.7 C 08/17/20 15:44 Pulse 72 08/17/20 15:44 Resp 18 08/17/20 15:44 BP 104/58 L 08/17/20 15:44 Pulse Ox 95 08/17/20 15:44 ENMT Mouth: no TMJ abnormality and no dentition abnormality Thyromental Distance: > or= 3.5 Finger Breadths Mallampati Class: II Neck neck extension not limited Respiratory normal respiratory effort; no respiratory distress Auscultation: lungs clear to auscultation bilaterally Cardiovascular Rate/Rhythm: regular rate and regular rhythm Neurologic moves all extremities Psychiatric Orientation: alert and oriented x 3 Testing Laboratory Results 08/17/20 12:43 08/17/20 12:43
--- NOTE | 2020-08-17 17:08 | Electrocardiogram Report ---
Test Reason : Blood Pressure : / mmHG Vent. Rate : 081 BPM Atrial Rate : 081 BPM P-R Int : 172 ms QRS Dur : 086 ms QT Int : 398 ms P-R-T Axes : 050 025 145 degrees QTc Int : 462 ms Poor data quality, interpretation may be adversely affected Normal sinus rhythm T wave abnormality, consider lateral ischemia Abnormal ECG When compared with ECG of 25-OCT-2019 12:49, Inverted T waves have replaced nonspecific T wave abnormality in Lateral leads Confirmed by Sandoval Garzon ([id number]) on 08/17/2020 5:08:43 PM Referred By: REFERRED SELF Confirmed By:Jesus Garzon
[2020-08-17] MEDS ORDERED: LIDOCAINE 2% 2 ML VIAL/AMP(20MG/ML) INFIL ONE (17:24)
[2020-08-17] MEDS ORDERED: ROCURONIUM BROMIDE 10 MG/ML 5 ML VIAL IV ONE (17:24)
[2020-08-17] MEDS ORDERED: ONDANSETRON INJ 2 MG/ML 2 ML VIAL ONE ×2 (17:24→19:35)
[2020-08-17] MEDS ORDERED: DEXAMETHASONE SOD INJ 4 MG/ML VIAL ONE (17:24)
[2020-08-17] MEDS ORDERED: ePHEDrine sulfate 50 MG/ML SYR ONE (17:25)
[2020-08-17] MEDS ORDERED: GELATIN SPONGE SZ 100 ONE (17:37)
[2020-08-17] MEDS ORDERED: TRANEXAMIC ACID / 0.7% NACL 1000MG/100ML BAG IV ONE (18:16)
--- NOTE | 2020-08-17 20:11 | Post Operative Brief Note ---
Immediate Post Op Note v1 Date of Surgery August 17, 2020 Pre & Post Diagnosis Operation Date: 08/17/20 13:40 Pre-Op Diagnosis: Open Fracture of Tibia and Fibula Post-Op Diagnosis: Open Fracture of Tibia and Fibula I identified the patient and participated in the time-out.: Yes Procedure Operation Date: 08/17/20 13:40 Actual Procedures p Open Right Segmental Tib Fib, Intramedullary Nail; Irrigation and debridement RLE (Right) - Crispin Hart MD Surgeon Crispin Hart MD Management Recruiter Shelia Jauregui PA-C (No fellow avail) Estimated Blood Loss 175 Findings Consistent with Post-Op Diagnosis Fluids 1600 cc Drains Peters Catheter and Hemovac Drain Anesthesia Type General Complications none
--- NOTE | 2020-08-17 20:18 | Operative Report ---
Post Operative Report Pre & Post Diagnosis Operation Date: 08/17/20 13:40 Pre-Op Diagnosis: Open Fracture of Tibia and Fibula Post-Op Diagnosis: Open Fracture of Tibia and Fibula I identified the patient and participated in the time-out.: Yes Procedure Operation Date: 08/17/20 13:40 Actual Procedures p Open Right Segmental Tib Fib, Intramedullary Nail(Right) - Crispin Hart MD Surgeon Crispin Hart MD Horticultural Therapist Shelia Jauregui PA-C (No fellow avail) Estimated Blood Loss 175 Findings See Below Comminuted Segmental Tibial shaft fracture (Non-displaced proximally, displaced, comminuted and open distally) jagged 11 cm laceration. The open wound was clear down to the Tibia with central portion of the wound very thin skin. Comminuted distal fibular shaft, and minimally displaced proximal fibula fracture, closed. Fluids 1600 Specimens n/a Drains HVAC & Peters Anesthesia Type General Complications none Indications The patient is a 80 year old female who sustained an open right tibia/fib fractures from a fall off a stool. The patients treatment options of conservative versus surgical intervention were discussed. I recommended surgery emergently due to the open fracture. The patient understands the risks of surgery, which include but are not limited to: bleeding, infection, re- operation, damage to nerves and arteries, continued pain, failure of the hardware, mal-union, non-union, DVT, and . The patient understands all of these instructions and explanations, all of their questions have been satisfactorily addressed. They will be admitted to hospitalist service and require 48 hours of IV antibiotics. The patient has elected to proceed with surgery and the informed consent was signed. Description of Procedure IMPLANTS: 1. Synthes 10 mm x 285 mm Tibial Nail. 2. 5 x 32 mm proximal Locking screw. 3. 5 x 34 & 38 mm distal locking screws. 4. Standard 5 mm titanium end cap. PROCEDURE: The patient was taken to the Operating Room and placed in the supine position on the radiolucent Norberto table after general anesthesia was administered. A multidisciplinary time-out was performed identifying my initials on the right lower limb as the correct and operative limb. Prior to the incision being made, 2 grams of intravenous Ancef were given. Fluoroscopy was brought in to ensure adequate X-rays images could be obtained and ensure that the proximal Tibia fracture did not displace. The right lower extremity was prepped in the standard fashion. The open wound medially and distally was copiously irrigated with over 4 L of normal saline. The hematoma was removed with irrigation, suction, and curet. The planned anterior knee incision was marked. This incision and the stab incisions for the locking screws were injected with a 50:50 mixture of 1% Lidocaine with epi and 0.5% Bupivacaine plain. The planned anterior incision was made and carried down through the peritenon. The peritenon was split exposing the patellar tendon and was elevated to expose the patellar tendon was split, but the starting point could not be achieved and medial to the tendon allowed access to the starting point. Fluoroscopy was used to find the starting point. A starting guide wire was placed and the starting reamer was used to create the entry hole with the hyperflexion of the knee. While reducing the fracture with manual with traction and rotation of the distal fragment, the fracture was reduced and confirmed visually through the open wound and with fluoroscopy. The long guide wire was then placed across the fracture into the distal fragment down to the distal tibial physeal scar centrally in both the AP and lateral projections. The tibial canal was then sequentially reamed from an 8 up to a 11 mm reamer. A size 10 mm implant was selected. The implant was then inserted without difficulty. Small second and third incisions were made for placement of the proximal locking screws, which were placed using the aiming guide. Due to the proximal fracture only the dynamic and adjacent static screws were able to be placed. The proximal oblique screw was passed, but did not have good purchase and was removed. The AP screw also attempted but was blocked by previous screw placement. An end cap was then placed in the standard fashion. The distal locking screws, 2 medial to lateral direction, were placed with perfect [place] technique. Final x-rays were obtained showing near anatomic alignment of the tibial shaft fracture and the proximal and distal fibular fractures was back out to length. The wounds were copiously irrigated. The patellar tendon was closed with 0 Vicryl. The peritenon was closed with 2-0 Vicryl. The subcutaneous tissue was closed with 3-0 Vicryl. The skin incisions were closed with enrrique. The wound was closed with 0 and 3-0 Prolene. A small HVAC drain was placed along the open wound before closure. The wound and incisions were covered with Xeroform, 4x4s, ABD, sterile cast padding, and an AO splint was placed. The alignment of the lower leg was the same as the non- operative side. The patient was transfer to the hospital bed and taken to the PACU in stable condition. The sponge and needle counts were correct. Post-op Instructions: The patient was re-admitted to the Hospitalist service and will complete 48 hours of IV antibiotics. The patient will be TTWB. The patient will be seen by PT/OT. DVT prophylaxis will be with mechanical devices and ASA. I attest to the content of the Intraoperative Record and any orders documented therein. Any exceptions are noted below.
--- NOTE | 2020-08-17 20:33 | Operative Report ---
Post Operative Report Pre & Post Diagnosis Operation Date: 08/17/20 13:40 Pre-Op Diagnosis: Open Fracture of Tibia and Fibula Post-Op Diagnosis: Open Fracture of Tibia and Fibula I identified the patient and participated in the time-out.: Yes Procedure Operation Date: 08/17/20 13:40 Actual Procedures p Open Right Segmental Tibia and Fibula, Intramedullary Nail, Irrigation and Debridement(Right) - Crispin Hart MD Surgeon Crispin Hart M.D. Channel Account Manager Shelia Jauregui PA-C (No fellow avail) Estimated Blood Loss 175 Findings Consistent with Post-Op Diagnosis Specimens None Drains Hemovac x 1 Anesthesia Type General Complications none Description of Procedure Patient was taken to the operating room, placed under general anesthesia. Time out performed, prepped and draped in routine sterile fashion. I was present during the entire case, please see Dr. Hart's operative report for further detail. I assisted with positioning, tissue retraction, limb positioning, irrigation, debridement, fracture reduction, hardware implantation and closure. Patient was awakened and taken to the recovery room in stable condition. I attest to the content of the Intraoperative Record and any orders documented therein. Any exceptions are noted below.
--- NOTE | 2020-08-17 20:50 | Anesthesiology Progress Note ---
Date of Service August 17, 2020 Anesthesia Post Procedure Vital Signs Vital Signs: Temp Pulse Pulse Pulse Resp BP BP 08/17/20 20:40 92 H 19 131/59 L 08/17/20 20:30 93 H 17 132/63 08/17/20 20:24 36.5 C 96 H 19 146/65 H 08/17/20 15:44 36.7 C 72 18 08/17/20 15:00 70 18 08/17/20 13:41 74 08/17/20 13:40 75 163/68 H 08/17/20 13:36 76 137/56 L 08/17/20 13:30 81 168/73 H 08/17/20 13:25 81 22 154/89 H 08/17/20 13:20 83 22 164/66 H 08/17/20 13:15 83 22 170/75 H 08/17/20 13:12 81 171/66 H 08/17/20 13:10 79 18 08/17/20 13:08 72 132/82 08/17/20 13:05 73 18 08/17/20 13:00 75 74 18 08/17/20 12:56 72 20 08/17/20 12:50 79 08/17/20 12:40 70 08/17/20 12:30 70 20 08/17/20 12:20 69 17 08/17/20 12:16 68 17 08/17/20 12:12 70 19 134/46 L 08/17/20 12:09 71 23 08/17/20 12:06 68 13 134/46 L BP Pulse Ox 08/17/20 20:40 100 08/17/20 20:30 100 08/17/20 20:24 100 08/17/20 15:44 104/58 L 95 08/17/20 15:00 122/52 L 99 08/17/20 13:41 98 08/17/20 13:40 100 08/17/20 13:36 100 08/17/20 13:30 100 08/17/20 13:25 154/89 H 100 08/17/20 13:20 164/66 H 100 08/17/20 13:15 170/75 H 100 08/17/20 13:12 100 08/17/20 13:10 171/66 H 100 08/17/20 13:08 99 08/17/20 13:05 132/82 100 08/17/20 13:00 134/58 L 100 08/17/20 12:56 95 08/17/20 12:50 93 08/17/20 12:40 94 08/17/20 12:30 94 08/17/20 12:20 90 08/17/20 12:16 97 08/17/20 12:12 96 08/17/20 12:09 134/46 L 97 08/17/20 12:06 96 Pain Intensity Right Ankle: Pain Intensity: 5 Transfer of Care Handoff Completed per policy Notes Mental Status: alert / awake / arousable and participated in evaluation Patient Amnestic to Procedure: Yes Nausea / Vomiting: adequately controlled Pain: adequately controlled Airway Patency, RR, SpO2: stable & adequate BP & HR: stable & adequate Hydration State: stable & adequate Anesthetic Complications: no major complications apparent and Pt Satisfied with anesthetic care
--- NOTE | 2020-08-17 21:12 | Fluoroscopy Report ---
INTRAOPERATIVE RADIOGRAPHS CLINICAL HISTORY: Open reduction and internal fixation of the right tibia. Fluoroscopy time: 110 seconds. FINDINGS: 6 spot fluoroscopic views of the right tibia are compared to radiographs dated 08/17/2020. T here has been intramedullary nail fixation of proximal and distal tibial fractures with amish o f near-anatomic alignment. 2 cortical lag screws transfix the proximal and distal ends of the nail. A distal fibular fracture is also noted. Overlying soft tissue edema is observed. IMPRESSION: Intraoperative images from open reduction and internal fixation of right tibial fractures as above. Electronically signed by: Conor Faye M.D. 08/17/2020 9:11 PM
[2020-08-17] MEDS ORDERED: ACETAMINOPHEN 325 MG TAB PO PRN (21:47)
[2020-08-17] MEDS ORDERED: NALOXONE HCL 0.4 MG/1 ML VIAL/CARP IV PRN (21:47)
[2020-08-17] MEDS ORDERED: oxyCODONE HCL IR 5 MG TAB (IMMEDIATE RELEASE) PO PRN ×2 (21:47)
[2020-08-17] MEDS ORDERED: METOCLOPRAMIDE HCL INJ 5 MG/ML 2 ML VIAL IV PRN (21:47)
[2020-08-17] MEDS ORDERED: POLYETHYLENE (MIRALAX) 17 GM PACK PO PRN (21:47)
[2020-08-18] MEDS: ROSUVASTATIN CALCIUM 10 MG TAB PO SCH ×2 (00:53→21:28)
[2020-08-18] MEDS: ASPIRIN 81 MG ECTAB PO SCH ×3 (00:53→21:28)
[2020-08-18] MEDS: DOCUSATE SODIUM 100 MG CAP PO SCH ×3 (00:54→21:28)
[2020-08-18] MEDS: ceFAZolin 2000MG 2,000 MG/15 ML SYR IV SCH ×3 (00:54→15:31)
[2020-08-18] MEDS: ACETAMINOPHEN 500 MG TAB PO SCH ×4 (00:54→21:27)
[2020-08-18 06:34] LABS: Hematocrit (blood only) 24.9 % (37-47); Hemoglobin 8.4 g/dL (12.0-16.0); Mean Corpuscular Hgb Conc 33.7 g/dL (32-36); Mean Corpuscular Volume 91.9 fL (80-100); Mean Platelet Volume 9.9 fL (7.4-10.4); Platelet Count 193 K/uL (130-400); RDW Coefficient of Variation 13.8 % (11.5-14.5); RDW Standard Deviation 46.1 fL (36.4-46.3); Red Blood Count 2.71 M/uL (4.2-5.4); White Blood Count 9.19 K/uL (4.8-10.8)
[2020-08-18 07:05] LABS: BUN Creatinine Ratio 17.3 (10-20); Calcium 7.9 mg/dl (8.5-10.1); Creatinine Clr Calc Pharmacy 36.1 ml/min; Est GFR (African American) 56.8 ml/min; Potassium 4.5 mmol/L (3.5-5.1)
[2020-08-18 07:15] LABS: Thyroid Stimulating Hormone 1.58 uIu/ml (0.300-4.500)
[2020-08-18] MEDS ORDERED: ERGOCALCIFEROL 50,000 UNITS 1250 MCG CAP PO ONE (08:00)
[2020-08-18] MEDS: PANTOprazole 40 MG TAB PO SCH (08:51)
[2020-08-18] MEDS: SERTRALINE HCL 100 MG TABLET PO SCH (08:51)
--- NOTE | 2020-08-18 09:09 | Orthopedic Progress Note ---
Date of Service August 18, 2020 Assessment & Plan (1) Fracture of tibia and fibula, open: POD #1 s/p IM Rodding open Right Tibia, closed treatment of fibula fractures, I&D RLE open wound. Acute anemia blood loss, asymptomatic, will continue to monitor. RICE. Regular diet. TTWB with walker. OOB to chair. Continue pain control. DVT prophylaxis: TEDs 3 weeks, foot pumps while in hospital, ASA 81 mg BID x 6 weeks. PT/OT. Iron and Vit C for 2 weeks. Will check wounds tomorrow consider switching to Cam boot, high tide. D/C planning Complete 48 hours for IV antibiotics. Continue care per primary service. D/C HVAC drain this am. (2) Laceration of elbow: RICE Cover with Dry Sterile dressing. WBAT Admission and Anticipated Discharge Date Admission Date: August 17, 2020 Subjective Doing alright, tired Review of Systems Review of Systems: All systems reviewed & are unremarkable except as noted in HPI & below Physical Exam Physical Exam: RLE: Sensation to light touch is intact. Wiggling her toes. BCR < 2. Splint clean, dry, intact. RUE: Dressing clean, dry, intact. Results & Data ([facility]) Vital Signs (Past 12 Hours) Vital Signs Temp Pulse Pulse Resp BP Pulse Ox 08/18/20 07:29 36.6 C 88 16 103/66 95 08/18/20 03:50 36.8 C 85 16 100/65 96 08/18/20 00:49 84 93/52 L 94 08/17/20 23:17 86 100/65 100 08/17/20 22:35 36.8 C 84 101/64 99 08/17/20 22:19 36.8 C 84 16 101/64 100 08/17/20 21:44 87 16 96/61 L 99 Laboratory Results 08/18/20 08/18/20 08/18/20 Range/Units 06:04 06:04 06:04 WBC 9.19 (4.8-10.8) K/uL RBC 2.71 L (4.2-5.4) M/uL Hgb 8.4 L D (12.0-16.0) g/dL Hct 24.9 L (37-47) % MCV 91.9 (80-100) fL MCH 31.0 (25-34) pg MCHC 33.7 (32-36) g/dL RDW Std Deviation 46.1 (36.4-46.3) fL RDW Coeff of [place] 13.8 (11.5-14.5) % Plt Count 193 (130-400) K/uL MPV 9.9 (7.4-10.4) fL Immature Gran % (Auto) % Neut % (Auto) % Lymph % (Auto) % [place] % (Auto) % Eos % (Auto) % Baso % (Auto) % Neut # (Auto) (1.4-6.5) K/uL Lymph # (Auto) (1.2-3.4) K/uL [place] # (Auto) (0.11-0.59) K/uL Eos # (Auto) (0-0.5) K/uL Baso # (Auto) (0-0.2) K/uL Immature Gran # (Auto) (0.00-0.02) K/uL Sodium 138 (136-145) mmol/L Potassium 4.5 (3.5-5.1) mmol/L Chloride 108 H (98-107) mmol/L Carbon Dioxide 25 (21-32) mmol/L Anion Gap 5.0 (3-11) BUN 19 H (7-18) mg/dl Creatinine 1.07 (0.6-1.2) mg/dl Est Cr Clr Drug Dosing 36.1 ml/min Est GFR ( Amer) 56.8 ml/min Est GFR (Non-Af Amer) 49.0 ml/min BUN/Creatinine Ratio 17.3 (10-20) Glucose 137 H (70-99) mg/dl Calcium 7.9 L (8.5-10.1) mg/dl Total Bilirubin (0.2-1) mg/dl AST (15-37) U/L ALT (12-78) U/L Alkaline Phosphatase (45-117) U/L Troponin I (0-0.045) ng/ml Total Protein (6.4-8.2) gm/dl Albumin (3.4-5.0) gm/dl Globulin (2.5-4.0) gm/dl Albumin/Globulin Ratio (0.9-2) Lipase (73-393) U/L 25-OH Vitamin D Total Pending TSH 1.580 (0.300-4.500) uIu/ml Specimen Hemolysis COVID-19 Eval Order SARS-CoV-2 (PCR) (Negative) 08/17/20 08/17/20 08/17/20 Range/Units 14:18 14:18 12:43 WBC (4.8-10.8) K/uL RBC (4.2-5.4) M/uL Hgb (12.0-16.0) g/dL Hct (37-47) % MCV (80-100) fL MCH (25-34) pg MCHC (32-36) g/dL RDW Std Deviation (36.4-46.3) fL RDW Coeff of [place] (11.5-14.5) % Plt Count (130-400) K/uL MPV (7.4-10.4) fL Immature Gran % (Auto) % Neut % (Auto) % Lymph % (Auto) % [place] % (Auto) % Eos % (Auto) % Baso % (Auto) % Neut # (Auto) (1.4-6.5) K/uL Lymph # (Auto) (1.2-3.4) K/uL [place] # (Auto) (0.11-0.59) K/uL Eos # (Auto) (0-0.5) K/uL Baso # (Auto) (0-0.2) K/uL Immature Gran # (Auto) (0.00-0.02) K/uL Sodium 140 (136-145) mmol/L Potassium 4.5 (3.5-5.1) mmol/L Chloride 109 H (98-107) mmol/L Carbon Dioxide 26 (21-32) mmol/L Anion Gap 5.0 (3-11) BUN 16 (7-18) mg/dl Creatinine 1.01 (0.6-1.2) mg/dl Est Cr Clr Drug Dosing 38.2 ml/min Est GFR ( Amer) 60.9 ml/min Est GFR (Non-Af Amer) 52.5 ml/min BUN/Creatinine Ratio 15.5 (10-20) Glucose 107 H (70-99) mg/dl Calcium 8.7 (8.5-10.1) mg/dl Total Bilirubin 0.7 (0.2-1) mg/dl AST 38 H (15-37) U/L ALT 23 (12-78) U/L Alkaline Phosphatase 56 (45-117) U/L Troponin I < 0.015 (0-0.045) ng/ml Total Protein 7.2 (6.4-8.2) gm/dl Albumin 4.1 (3.4-5.0) gm/dl Globulin 3.1 (2.5-4.0) gm/dl Albumin/Globulin Ratio 1.3 (0.9-2) Lipase 116 (73-393) U/L 25-OH Vitamin D Total TSH (0.300-4.500) uIu/ml Specimen Hemolysis COVID-19 Eval Order Covid19 at [facility] SARS-CoV-2 (PCR) NEGATIVE (Negative) 08/17/20 Range/Units 12:43 WBC 12.42 H (4.8-10.8) K/uL RBC 3.91 L (4.2-5.4) M/uL Hgb 11.9 L (12.0-16.0) g/dL Hct 35.6 L (37-47) % MCV 91.0 (80-100) fL MCH 30.4 (25-34) pg MCHC 33.4 (32-36) g/dL RDW Std Deviation 44.3 (36.4-46.3) fL RDW Coeff of [place] 13.3 (11.5-14.5) % Plt Count 201 (130-400) K/uL MPV 10.1 (7.4-10.4) fL Immature Gran % (Auto) 0.2 % Neut % (Auto) 77.0 % Lymph % (Auto) 16.7 % [place] % (Auto) 5.6 % Eos % (Auto) 0.2 % Baso % (Auto) 0.3 % Neut # (Auto) 9.56 H (1.4-6.5) K/uL Lymph # (Auto) 2.08 (1.2-3.4) K/uL [place] # (Auto) 0.69 H (0.11-0.59) K/uL Eos # (Auto) 0.02 (0-0.5) K/uL Baso # (Auto) 0.04 (0-0.2) K/uL Immature Gran # (Auto) 0.03 H (0.00-0.02) K/uL Sodium (136-145) mmol/L Potassium (3.5-5.1) mmol/L Chloride (98-107) mmol/L Carbon Dioxide (21-32) mmol/L Anion Gap (3-11) BUN (7-18) mg/dl Creatinine (0.6-1.2) mg/dl Est Cr Clr Drug Dosing ml/min Est GFR ( Amer) ml/min Est GFR (Non-Af Amer) ml/min BUN/Creatinine Ratio (10-20) Glucose (70-99) mg/dl Calcium (8.5-10.1) mg/dl Total Bilirubin (0.2-1) mg/dl AST (15-37) U/L ALT (12-78) U/L Alkaline Phosphatase (45-117) U/L Troponin I (0-0.045) ng/ml Total Protein (6.4-8.2) gm/dl Albumin (3.4-5.0) gm/dl Globulin (2.5-4.0) gm/dl Albumin/Globulin Ratio (0.9-2) Lipase (73-393) U/L 25-OH Vitamin D Total TSH (0.300-4.500) uIu/ml Specimen Hemolysis COVID-19 Eval Order SARS-CoV-2 (PCR) (Negative) (1) Fracture of tibia and fibula, open Encounter type: initial encounter Laterality: right Open fracture type: open type I or II Qualified Code(s): S82.201B - Unspecified fracture of shaft of right tibia, initial encounter for open fracture type I or II; S82.401B - Unspecified fracture of shaft of right fibula, initial encounter for open fracture type I or II (2) Laceration of elbow Encounter type: initial encounter Laterality: right Qualified Code(s): S51.011A - Laceration without foreign body of right elbow, initial encounter
--- NOTE | 2020-08-18 22:14 | Hospitalist Progress Note ---
Date of Service August 18, 2020 Assessment & Plan (1) Fracture of tibia and fibula, open: Patient seen by Dr. Hart the emergency room and is likely going to the OR for emergent washout and repair S/P repair On ASA 81 mg PO BID will monitor hemoglobin. (2) Abnormal EKG: EKG shows normal sinus rhythm with biphasic T waves in V2 this is slightly different from previous EKG she has no cardiac symptoms to corroborate with this and does not list any presyncopal symptoms with regards to her fall (3) Asthma: Patient is a history of asthma typically quiescent did have occasional wheezes on exam will offer albuterol as needed if needed in the perioperative period (4) Hyperlipidemia: Patient is on rosuvastatin for dyslipidemia and this will be continued (5) HTN (hypertension): Regarding hypertension the patient typically takes Avapro 150 this may be held in the perioperative day 1 given how her blood pressure response. Patient typically takes aspirin for cardiovascular risk reduction this will be held in the perioperative period (6) Depression: In regard to her depression she takes sertraline 100 this will be continued (7) DVT prophylaxis: DVT prophylaxis is postop based on surgical preference. Patient continues on Protonix for DVT prevention Patient is a full code at this point time Admission and Anticipated Discharge Date Admission Date: August 17, 2020 Subjective 80 yo female reports no new symptoms today. Had moderate pain near surgical site. Review of Systems Review of Systems: Mild distress and fatigue no headache, blurry or double vision no speech or swallowing issues no chest pain, pressure or palpitations no orthopnea no shortness of breath, cough or wheezes no dyspnea on exertion no abdominal pain, nausea or vomiting, diarrhea or constipation no dysuria, hematuria or frequency Significant right distal tanner ankle and foot pain, significant right elbow pain no back pain, CVA tenderness or radicular pain Bruising to her right elbow and open laceration to her right lower leg no focal signs of weakness or numbness or altered sensation claims to have intact sensation of her foot no complaints of anxiety or depression.. Physical Exam Physical Exam: The patient appeared well nourished and normally developed. She is in mild to moderate pain Vital signs as documented. Head exam is normocephalic atraumatic Neck is without JVD, thyromegaly, or carotid bruits. Lungs: CTA B/L Cardiac exam, Rhythm is regular.. No murmurs, rubs or gallops. Abdominal exam reveals normal bowel sounds, soft non tender, no masses. Neurologic exam is alert and oriented, no focal loss of strength or sensation Psychologically is without concerns for anxiety or depression Results & Data Results & Data ([facility]) Vital Signs (Past 12 Hours) Vital Signs Temp Pulse Pulse Resp BP Pulse Ox 08/18/20 19:47 92 H 114/64 08/18/20 15:12 37.0 C 104 H 16 117/70 90 08/18/20 12:27 37.1 C 92 H 18 99/58 L 96 PG Care Time/CCT Total # of Minutes Spent Total Time Spent with Patient: Total time spent is greater than 50% in coordination of care (as documented) at patient's floor/unit and/or counseling patient: Coding Level of Care Code 40383 Subseq Hosp Care Lvl 3 Diagnoses Fracture of tibia and fibula, open S82.201B; S82.401B Encounter type: initial encounter Laterality: right Open fracture type: open type I or II Abnormal EKG R94.31 Asthma J45.909 Hyperlipidemia E78.5 HTN (hypertension) I10 Depression F32.9 DVT prophylaxis Z29.9 Time Spent (min) 35 (1) Fracture of tibia and fibula, open Encounter type: initial encounter Laterality: right Open fracture type: open type I or II Qualified Code(s): S82.201B - Unspecified fracture of shaft of right tibia, initial encounter for open fracture type I or II; S82.401B - Unspecified fracture of shaft of right fibula, initial encounter for open fracture type I or II
[2020-08-19] MEDS: ceFAZolin 2000MG 2,000 MG/15 ML SYR IV SCH ×3 (00:38→16:21)
[2020-08-19] MEDS: ACETAMINOPHEN 500 MG TAB PO SCH ×3 (05:48→21:31)
[2020-08-19 07:41] LABS: Hematocrit (blood only) 20.2 % (37-47); Hemoglobin 6.9 g/dL (12.0-16.0); Mean Corpuscular Hemoglobin 31.1 pg (25-34); Mean Corpuscular Hgb Conc 34.2 g/dL (32-36); Mean Platelet Volume 9.8 fL (7.4-10.4); Platelet Count 141 K/uL (130-400); RDW Coefficient of Variation 13.8 % (11.5-14.5); RDW Standard Deviation 45.9 fL (36.4-46.3); Red Blood Count 2.22 M/uL (4.2-5.4); White Blood Count 7.62 K/uL (4.8-10.8)
[2020-08-19] MEDS ORDERED: SODIUM CHLORIDE 0.9% 250 ML IV PRN (07:43)
[2020-08-19] MEDS: traMADol HCL 50 MG TABLET PO PRN ×2 (07:56→09:03)
[2020-08-19] MEDS: PANTOprazole 40 MG TAB PO SCH (07:57)
[2020-08-19] MEDS: ASPIRIN 81 MG ECTAB PO SCH ×2 (07:57→21:31)
[2020-08-19] MEDS: SERTRALINE HCL 100 MG TABLET PO SCH (07:57)
[2020-08-19] MEDS: DOCUSATE SODIUM 100 MG CAP PO SCH ×2 (07:57→21:30)
[2020-08-19 08:07] LABS: BUN Creatinine Ratio 22.5 (10-20); Calcium 8.4 mg/dl (8.5-10.1); Creatinine Clr Calc Pharmacy 45.9 ml/min; Est GFR (African American) 76.1 ml/min; Est GFR (Non-African American) 65.6 ml/min; Potassium 3.8 mmol/L (3.5-5.1)
--- NOTE | 2020-08-19 13:14 | Orthopedic Progress Note ---
Date of Service August 19, 2020 Assessment & Plan (1) Fracture of tibia and fibula, open: POD #2 s/p IM Rodding open Right Tibia, closed treatment of fibula fractures, I&D RLE open wound. Acute anemia blood loss, 6.9. Being transfused. Post-Op dressings changed and CAM boot applied. Dressings change PRN Can remove boot while in bed TTWB R LE in CAM BOOT PT/OT OOB to chair. Continue RICE treatment. DVT prophylaxis: TEDs 3 weeks, foot pumps while in hospital, ASA 81 mg BID x 6 weeks. Iron and Vit C for 2 weeks. Continue pain control per medicine D/C planning Complete 48 hours for IV antibiotics. Continue care per primary service. F/U with Ortho outpatient 1wk post-op on 08-24 at 10:30am I, Dr. Hart, saw and examined the patient with my PA and agree with the above findings and plan of care discussed with my PA. (2) Laceration of elbow: RICE Cover with Dry Sterile dressing. WBAT Admission and Anticipated Discharge Date Admission Date: August 17, [address] Hart. Patient said she doesnt "feel so well today". Low Hgb 6.9. Being transfused. Pain to R LE controlled with pain medications and ice. Physical Exam Physical Exam: R LE: Tolerated removal of post-op splint and dressings. Incisions and open wound are clean, dry, and intact. No active drainage No pus or foul odor. Calve soft. NV intact L LE. Able to wiggle toes and ankle gently. Palpable DP and PT pulses. Sensation grossly intact. 1+ PE. Results & Data ([facility]) Vital Signs (Past 12 Hours) Vital Signs Temp Pulse Pulse Resp BP BP Pulse Ox 08/19/20 12:55 37.1 C 79 16 116/67 94 08/19/20 12:30 36.8 C 78 16 107/67 96 08/19/20 11:30 37 C 78 18 109/61 98 08/19/20 11:02 36.9 C 79 16 104/66 94 08/19/20 10:30 37.0 C 77 16 118/70 96 08/19/20 10:15 36.9 C 84 18 104/64 96 08/19/20 09:58 37.1 C 84 18 111/68 95 08/19/20 07:36 37.0 C 76 16 96/58 L 96 Laboratory Results 08/19/20 08/19/20 08/19/20 Range/Units 08:15 06:55 06:55 WBC 7.62 (4.8-10.8) K/uL RBC 2.22 L (4.2-5.4) M/uL Hgb 6.9 L* (12.0-16.0) g/dL Hct 20.2 L* (37-47) % MCV 91.0 (80-100) fL MCH 31.1 (25-34) pg MCHC 34.2 (32-36) g/dL RDW Std Deviation 45.9 (36.4-46.3) fL RDW Coeff of [place] 13.8 (11.5-14.5) % Plt Count 141 (130-400) K/uL MPV 9.8 (7.4-10.4) fL Sodium 138 (136-145) mmol/L Potassium 3.8 D (3.5-5.1) mmol/L Chloride 107 (98-107) mmol/L Carbon Dioxide 27 (21-32) mmol/L Anion Gap 4.0 (3-11) BUN 19 H (7-18) mg/dl Creatinine 0.84 (0.6-1.2) mg/dl Est Cr Clr Drug Dosing 45.9 ml/min Est GFR ( Amer) 76.1 ml/min Est GFR (Non-Af Amer) 65.6 ml/min BUN/Creatinine Ratio 22.5 H (10-20) Glucose 108 H (70-99) mg/dl Calcium 8.4 L (8.5-10.1) mg/dl Blood Type A Positive Blood Type Recheck Antibody Screen NEGATIVE Crossmatch See Detail 08/19/20 Range/Units 06:04 WBC (4.8-10.8) K/uL RBC (4.2-5.4) M/uL Hgb (12.0-16.0) g/dL Hct (37-47) % MCV (80-100) fL MCH (25-34) pg MCHC (32-36) g/dL RDW Std Deviation (36.4-46.3) fL RDW Coeff of [place] (11.5-14.5) % Plt Count (130-400) K/uL MPV (7.4-10.4) fL Sodium (136-145) mmol/L Potassium (3.5-5.1) mmol/L Chloride (98-107) mmol/L Carbon Dioxide (21-32) mmol/L Anion Gap (3-11) BUN (7-18) mg/dl Creatinine (0.6-1.2) mg/dl Est Cr Clr Drug Dosing ml/min Est GFR ( Amer) ml/min Est GFR (Non-Af Amer) ml/min BUN/Creatinine Ratio (10-20) Glucose (70-99) mg/dl Calcium (8.5-10.1) mg/dl Blood Type Blood Type Recheck A Positive Antibody Screen Crossmatch (1) Fracture of tibia and fibula, open Encounter type: initial encounter Laterality: right Open fracture type: open type I or II Qualified Code(s): S82.201B - Unspecified fracture of shaft of right tibia, initial encounter for open fracture type I or II; S82.401B - Unspecified fracture of shaft of right fibula, initial encounter for open fracture type I or II (2) Laceration of elbow Encounter type: initial encounter Laterality: right Qualified Code(s): S51.011A - Laceration without foreign body of right elbow, initial encounter
--- NOTE | 2020-08-19 21:19 | Hospitalist Progress Note ---
Date of Service August 19, 2020 Assessment & Plan (1) Fracture of tibia and fibula, open: Patient seen by Dr. Hart the emergency room and is likely going to the OR for emergent washout and repair Acute blood loss anemia secondary to fracture of tibia and fibula S/P repair On ASA 81 mg PO BID transfuse 1 PRBC. (2) Abnormal EKG: EKG shows normal sinus rhythm with biphasic T waves in V2 this is slightly different from previous EKG she has no cardiac symptoms to corroborate with this and does not list any presyncopal symptoms with regards to her fall (3) Asthma: Patient is a history of asthma typically quiescent did have occasional wheezes on exam will offer albuterol as needed if needed in the perioperative period (4) Hyperlipidemia: Patient is on rosuvastatin for dyslipidemia and this will be continued (5) HTN (hypertension): Regarding hypertension the patient typically takes Avapro 150 this may be held in the perioperative day 1 given how her blood pressure response. Patient typically takes aspirin for cardiovascular risk reduction this will be held in the perioperative period (6) Depression: In regard to her depression she takes sertraline 100 this will be continued (7) DVT prophylaxis: DVT prophylaxis is postop based on surgical preference. Patient continues on Protonix for DVT prevention Patient is a full code at this point time Admission and Anticipated Discharge Date Admission Date: August 17, 2020 Subjective Patient reports feeling well. Patient has no complaints. Review of Systems Review of Systems: All systems reviewed & are unremarkable except as noted in HPI & below Physical Exam Physical Exam: The patient appeared well nourished and normally developed. She is in mild to moderate pain Vital signs as documented. Head exam is normocephalic atraumatic Neck is without JVD, thyromegaly, or carotid bruits. Lungs: CTA B/L Cardiac exam, Rhythm is regular.. No murmurs, rubs or gallops. Abdominal exam reveals normal bowel sounds, soft non tender, no masses. Neurologic exam is alert and oriented, no focal loss of strength or sensation Psychologically is without concerns for anxiety or depression Results & Data Results & Data ([facility]) Vital Signs (Past 12 Hours) Vital Signs Temp Pulse Pulse Resp BP BP Pulse Ox 08/19/20 20:48 37 C 89 16 108/68 92 08/19/20 15:38 36.9 C 79 16 107/67 93 08/19/20 12:55 37.1 C 79 16 116/67 94 08/19/20 12:30 36.8 C 78 16 107/67 96 08/19/20 11:30 37 C 78 18 109/61 98 08/19/20 11:02 36.9 C 79 16 104/66 94 08/19/20 10:30 37.0 C 77 16 118/70 96 08/19/20 10:15 36.9 C 84 18 104/64 96 08/19/20 09:58 37.1 C 84 18 111/68 95 PG Care Time/CCT Total # of Minutes Spent Total Time Spent with Patient: Total time spent is greater than 50% in coordination of care (as documented) at patient's floor/unit and/or counseling patient: Coding Level of Care Code 00942 Subseq Hosp Care Lvl 3 Diagnoses Fracture of tibia and fibula, open S82.201B; S82.401B Encounter type: initial encounter Laterality: right Open fracture type: open type I or II Abnormal EKG R94.31 Asthma J45.909 Hyperlipidemia E78.5 HTN (hypertension) I10 Depression F32.9 DVT prophylaxis Z29.9 (1) Fracture of tibia and fibula, open Encounter type: initial encounter Laterality: right Open fracture type: open type I or II Qualified Code(s): S82.201B - Unspecified fracture of shaft of right tibia, initial encounter for open fracture type I or II; S82.401B - Unspecified fracture of shaft of right fibula, initial encounter for open fracture type I or II
[2020-08-19] MEDS: ROSUVASTATIN CALCIUM 10 MG TAB PO SCH (21:30)
[2020-08-19 21:32] LABS: Hematocrit (blood only) 25.1 % (37-47); Hemoglobin 8.4 g/dL (12.0-16.0)
[2020-08-20] MEDS: ceFAZolin 2000MG 2,000 MG/15 ML SYR IV SCH (00:27)
[2020-08-20] MEDS: ACETAMINOPHEN 500 MG TAB PO SCH ×3 (05:20→22:15)
[2020-08-20 07:06] LABS: Mean Corpuscular Hemoglobin 30.7 pg (25-34); Mean Corpuscular Hgb Conc 33.3 g/dL (32-36); Mean Platelet Volume 9.4 fL (7.4-10.4); Platelet Count 142 K/uL (130-400); RDW Coefficient of Variation 13.8 % (11.5-14.5); RDW Standard Deviation 46.4 fL (36.4-46.3); Red Blood Count 2.61 M/uL (4.2-5.4); White Blood Count 6.31 K/uL (4.8-10.8)
[2020-08-20 07:46] LABS: BUN Creatinine Ratio 17.1 (10-20); Calcium 8.4 mg/dl (8.5-10.1); Creatinine Clr Calc Pharmacy 54.3 ml/min; Est GFR (African American) 93.2 ml/min; Est GFR (Non-African American) 80.4 ml/min; Potassium 3.7 mmol/L (3.5-5.1)
[2020-08-20] MEDS: PANTOprazole 40 MG TAB PO SCH (09:03)
[2020-08-20] MEDS: ASPIRIN 81 MG ECTAB PO SCH ×2 (09:03→20:16)
[2020-08-20] MEDS: SERTRALINE HCL 100 MG TABLET PO SCH (09:03)
[2020-08-20] MEDS: DOCUSATE SODIUM 100 MG CAP PO SCH ×2 (09:03→20:16)
--- NOTE | 2020-08-20 12:00 | Orthopedic Progress Note ---
Date of Service August 20, 2020 Assessment & Plan (1) Fracture of tibia and fibula, open: POD #3 s/p IM Rodding open Right Tibia, closed treatment of fibula fractures, I&D RLE open wound. Patient was transfused yesterday due to low hemoglobin. Cam boot dressings are in place and clean. Can remove boot while in bed TTWB R LE in CAM BOOT PT/OT OOB to chair. Continue RICE treatment. DVT prophylaxis: TEDs 3 weeks, foot pumps while in hospital, ASA 81 mg BID x 6 weeks. Iron and Vit C for 2 weeks. Continue pain control per medicine D/C planning Completed 48 hours for IV antibiotics. Continue care per primary service. F/U with Ortho outpatient 1wk post-op on 08-24 at 10:30am (2) Laceration of elbow: RICE Cover with Dry Sterile dressing. WBAT Admission and Anticipated Discharge Date Admission Date: August 17, 2020 Subjective This 80-year-old female was seen this morning after undergoing Open Right Segmental Tibia and Fibula, Intramedullary Nail, Irrigation and Debridement with Dr. Hart 3 days ago. She is currently in a high tide Cam walker boot. She states it is fitting her comfortably. She states her pain is well controlled with p.o. pain medication. She is planning on going to a rehab facility for at least a week before she feels she is comfortable to go home. Currently she denies chest pain, shortness of breath, fever, chills, sweats, lethargy or numbness or tingling in her right lower extremity. Review of Systems Review of Systems: All systems reviewed & are unremarkable except as noted in Subjective Physical Exam Physical Exam: Right lower leg: Boot was removed dressing is clean dry and intact and was kept in place. Boot was reapplied. Patient is able to move her digits. She is able to detect light sensation to touch over the pads of all digits. She is able to extend her knee to 2 degrees and flex to 90 degrees without difficulty. Results & Data ([facility]) Vital Signs (Past 12 Hours) Vital Signs Temp Pulse Resp BP Pulse Ox 08/20/20 07:20 36.8 C 74 16 117/69 94 08/20/20 01:00 96 (1) Fracture of tibia and fibula, open Encounter type: initial encounter Laterality: right Open fracture type: open type I or II Qualified Code(s): S82.201B - Unspecified fracture of shaft of right tibia, initial encounter for open fracture type I or II; S82.401B - Unspecified fracture of shaft of right fibula, initial encounter for open fracture type I or II (2) Laceration of elbow Encounter type: initial encounter Laterality: right Qualified Code(s): S51.011A - Laceration without foreign body of right elbow, initial encounter
[2020-08-20] MEDS: ROSUVASTATIN CALCIUM 10 MG TAB PO SCH (20:16)
--- NOTE | 2020-08-20 23:27 | Hospitalist Progress Note ---
Date of Service August 20, 2020 Assessment & Plan (1) Fracture of tibia and fibula, open: Patient seen by Dr. Hart the emergency room and is likely going to the OR for emergent washout and repair Acute blood loss anemia secondary to fracture of tibia and fibula S/P repair On ASA 81 mg PO BID transfused 1 PRBC. hemoglobin stable. awaiting auth for placement. (2) Abnormal EKG: EKG shows normal sinus rhythm with biphasic T waves in V2 this is slightly different from previous EKG she has no cardiac symptoms to corroborate with this and does not list any presyncopal symptoms with regards to her fall (3) Asthma: Patient is a history of asthma typically quiescent did have occasional wheezes on exam will offer albuterol as needed if needed in the perioperative period (4) Hyperlipidemia: Patient is on rosuvastatin for dyslipidemia and this will be continued (5) HTN (hypertension): Regarding hypertension the patient typically takes Avapro 150 this may be held in the perioperative day 1 given how her blood pressure response. Patient typically takes aspirin for cardiovascular risk reduction this will be held in the perioperative period (6) Depression: In regard to her depression she takes sertraline 100 this will be continued (7) DVT prophylaxis: DVT prophylaxis is postop based on surgical preference. Patient continues on Protonix for DVT prevention Patient is a full code at this point time Admission and Anticipated Discharge Date Admission Date: August 17, 2020 Subjective 80 yo female reports feeling better after transfusion. She has no new complaints. Review of Systems Review of Systems: All systems reviewed & are unremarkable except as noted in HPI & below Physical Exam Physical Exam: The patient appeared well nourished and normally developed. Vital signs as documented. Head exam is normocephalic atraumatic Neck is without JVD, thyromegaly, or carotid bruits. Lungs: CTA B/L Cardiac exam, Rhythm is regular.. No murmurs, rubs or gallops. Abdominal exam reveals normal bowel sounds, soft non tender, no masses. Neurologic exam is alert and oriented, no focal loss of strength or sensation Psychologically is without concerns for anxiety or depression Results & Data Results & Data ([facility]) Vital Signs (Past 12 Hours) Vital Signs Temp Pulse Resp BP BP Pulse Ox 08/20/20 23:00 36.8 C 77 18 128/71 97 08/20/20 15:58 36.7 C 81 18 152/74 H 98 PG Care Time/CCT Total # of Minutes Spent Total Time Spent with Patient: Total time spent is greater than 50% in coordination of care (as documented) at patient's floor/unit and/or counseling patient: Coding Level of Care Code 79088 Subseq Hosp Care Lvl 2 Diagnoses Fracture of tibia and fibula, open S82.201B; S82.401B Encounter type: initial encounter Laterality: right Open fracture type: open type I or II Abnormal EKG R94.31 Asthma J45.909 Hyperlipidemia E78.5 HTN (hypertension) I10 Depression F32.9 DVT prophylaxis Z29.9 Time Spent (min) 25 (1) Fracture of tibia and fibula, open Encounter type: initial encounter Laterality: right Open fracture type: open type I or II Qualified Code(s): S82.201B - Unspecified fracture of shaft of right tibia, initial encounter for open fracture type I or II; S82.401B - Unspecified fracture of shaft of right fibula, initial encounter for open fracture type I or II
[2020-08-21] MEDS: ACETAMINOPHEN 500 MG TAB PO SCH ×3 (06:23→21:01)
[2020-08-21 07:05] LABS: Hematocrit (blood only) 24.4 % (37-47); Hemoglobin 8.3 g/dL (12.0-16.0); Mean Corpuscular Hemoglobin 31.1 pg (25-34); Mean Corpuscular Volume 91.4 fL (80-100); Mean Platelet Volume 9.7 fL (7.4-10.4); Platelet Count 160 K/uL (130-400); RDW Coefficient of Variation 13.7 % (11.5-14.5); RDW Standard Deviation 45.3 fL (36.4-46.3); Red Blood Count 2.67 M/uL (4.2-5.4); White Blood Count 6.43 K/uL (4.8-10.8)
[2020-08-21 07:39] LABS: BUN Creatinine Ratio 16.6 (10-20); Calcium 8.2 mg/dl (8.5-10.1); Creatinine Clr Calc Pharmacy 58.4 ml/min; Est GFR (African American) 96.7 ml/min; Est GFR (Non-African American) 83.4 ml/min; Potassium 4.1 mmol/L (3.5-5.1)
--- NOTE | 2020-08-21 07:42 | Orthopedic Progress Note ---
Date of Service August 21, 2020 Assessment & Plan (1) Fracture of tibia and fibula, open: POD #4 s/p IM Rodding open Right Tibia, closed treatment of fibula fractures, I&D RLE open wound. Hgb stable after transfusion for acute anemia blood loss. Dressing changed, can change daily as needed. Can remove boot while in bed TTWB R LE in CAM BOOT PT/OT OOB to chair. Continue RICE treatment. DVT prophylaxis: TEDs 3 weeks, foot pumps while in hospital, ASA 81 mg BID x 6 weeks. Iron and Vit C for 2 weeks. Continue pain control per medicine D/C planning, stable for discharge from ortho standpoint. Completed 48 hours for IV antibiotics. Continue care per primary service. F/U with Ortho outpatient 1wk post-op on 08-24 at 10:30am Please recall if any orthopedic issues. (2) Laceration of elbow: RICE Cover with Dry Sterile dressing. WBAT Admission and Anticipated Discharge Date Admission Date: August 17, 2020 Subjective Tired Review of Systems Review of Systems: All systems reviewed & are unremarkable except as noted in HPI & below Physical Exam Physical Exam: RLE: Incisions and wounds look good, no evidence of infection. Min bloody drainage from closed open wound. Neurovascularly intact. Calf soft and non-tender. Swelling foot. Results & Data ([facility]) Vital Signs (Past 12 Hours) Vital Signs Temp Pulse Resp BP Pulse Ox 08/20/20 23:00 36.8 C 77 18 128/71 97 (1) Fracture of tibia and fibula, open Encounter type: initial encounter Laterality: right Open fracture type: open type I or II Qualified Code(s): S82.201B - Unspecified fracture of shaft of right tibia, initial encounter for open fracture type I or II; S82.401B - Unspecified fracture of shaft of right fibula, initial encounter for open fracture type I or II (2) Laceration of elbow Encounter type: initial encounter Laterality: right Qualified Code(s): S51.011A - Laceration without foreign body of right elbow, initial encounter
[2020-08-21] MEDS: ASPIRIN 81 MG ECTAB PO SCH ×2 (08:12→21:01)
[2020-08-21] MEDS: SERTRALINE HCL 100 MG TABLET PO SCH (08:12)
[2020-08-21] MEDS: DOCUSATE SODIUM 100 MG CAP PO SCH ×2 (08:12→21:01)
[2020-08-21] MEDS: PANTOprazole 40 MG TAB PO SCH (08:12)
--- NOTE | 2020-08-21 13:12 | Hospitalist Progress Note ---
Date of Service August 21, 2020 Assessment & Plan (1) Fracture of tibia and fibula, open: Due to mechanical fall. - S/p Open Right Segmental Tib Fib, Intramedullary Nail & Irrigation and Debridement by Dr. Hart on 08/17/2020 - Received 1 unit PRBCs on 08/19/2020 due to acute blood loss anemia from the surgery - Post-operative care per surgery - TTWB R LE in CAM BOOT - DVT ppx: ASA 81 mg PO BID, TEDs x 3 weeks - Iron and vitamin C for 2 weeks - F/u with ortho on 08/24/2020 at 10:30am (2) Abnormal EKG: EKG on admission showed normal sinus rhythm with biphasic T waves in V2. New compared to her prior in our chart in 10/2019. No symptoms. - Initial troponin on 08/17 was negative. - Will repeat EKG today (3) Asthma: Patient has a history of intermittent asthma. No present symptoms. - Albuterol PRN (4) HTN (hypertension): BP today is 110/60. - Holding home irbesartan; can restart as needed (5) Hyperlipidemia: - Continue statin (6) Depression: - Continue sertraline (7) DVT prophylaxis: ASA 81 mg PO BID as above Admission and Anticipated Discharge Date Admission Date: August 17, 2020 Subjective Doing well today. Right leg is somewhat painful, but not bad. Toes are wiggling and have good sensation. Had some nausea with AM pills, but settled down now. Reports no fevers/chills, chest pain, shortness of breath, abdominal pain, or vomiting. Physical Exam Constitutional: WD/WN, vitals as above Eyes: EOM intact bilaterally; no conjunctival abnormality ENMT: external ear and nose normal, oropharynx normal Neck: trachea midline, no thyromegaly normal visual inspection Respiratory: normal respiratory effort, lungs clear to auscultation no respiratory distress Cardiovascular: RRR, no murmur, no edema Gastrointestinal (Abdomen): Inspection/Auscultation: abdomen normal to inspection; abdomen not distended Musculoskeletal: no cyanosis or clubbing, extremities motor strength 5/5 Extremities: + extremities abnormal to inspection (Right leg bandaged; toes with good cap refill and sensation) Skin: no rashes, warm and dry Neurologic: moves all extremities and awake Psychiatric: Orientation: alert, oriented to person and cooperative Results & Data Results & Data ([facility]) Vital Signs (Past 12 Hours) Vital Signs Temp Pulse Resp BP Pulse Ox 08/21/20 07:49 36.8 C 72 18 107/63 96 PG Care Time/CCT Total # of Minutes Spent Total Time Spent with Patient: Total time spent is greater than 50% in coordination of care (as documented) at patient's floor/unit and/or counseling patient: Coding Level of Care Code 52339 Subseq Hosp Care Lvl 2 Diagnoses Fracture of tibia and fibula, open S82.201B; S82.401B Encounter type: initial encounter Laterality: right Open fracture type: open type I or II Abnormal EKG R94.31 Asthma J45.909 HTN (hypertension) I10 Hyperlipidemia E78.5 Depression F32.9 DVT prophylaxis Z29.9 (1) Fracture of tibia and fibula, open Encounter type: initial encounter Laterality: right Open fracture type: open type I or II Qualified Code(s): S82.201B - Unspecified fracture of shaft of right tibia, initial encounter for open fracture type I or II; S82.401B - Unspecified fracture of shaft of right fibula, initial encounter for open fracture type I or II
[2020-08-21] MEDS: ROSUVASTATIN CALCIUM 10 MG TAB PO SCH (21:01)
[2020-08-22] MEDS: MELATONIN 3 MG TAB PO PRN ×2 (00:22→20:57)
[2020-08-22] MEDS: ACETAMINOPHEN 500 MG TAB PO SCH ×3 (06:23→20:57)
[2020-08-22 07:53] LABS: Hematocrit (blood only) 24.2 % (37-47); Hemoglobin 8.1 g/dL (12.0-16.0); Mean Corpuscular Hgb Conc 33.5 g/dL (32-36); Mean Corpuscular Volume 92.7 fL (80-100); Mean Platelet Volume 9.2 fL (7.4-10.4); Platelet Count 194 K/uL (130-400); RDW Coefficient of Variation 13.7 % (11.5-14.5); RDW Standard Deviation 45.6 fL (36.4-46.3); Red Blood Count 2.61 M/uL (4.2-5.4); White Blood Count 6.09 K/uL (4.8-10.8)
[2020-08-22] MEDS: DOCUSATE SODIUM 100 MG CAP PO SCH ×2 (08:14→20:58)
[2020-08-22] MEDS: SERTRALINE HCL 100 MG TABLET PO SCH (08:14)
[2020-08-22] MEDS: PANTOprazole 40 MG TAB PO SCH (08:14)
[2020-08-22 08:29] LABS: BUN Creatinine Ratio 20.6 (10-20); Calcium 8.5 mg/dl (8.5-10.1); Creatinine Clr Calc Pharmacy 59.3 ml/min; Est GFR (African American) 97.2 ml/min; Est GFR (Non-African American) 83.9 ml/min; Magnesium 2.2 mg/dl (1.8-2.4)
[2020-08-22] MEDS: ASPIRIN 81 MG ECTAB PO SCH ×2 (09:07→20:57)
--- NOTE | 2020-08-22 15:32 | Hospitalist Progress Note ---
Date of Service August 22, 2020 Assessment & Plan (1) Fracture of tibia and fibula, open: Due to mechanical fall. - S/p Open Right Segmental Tib Fib, Intramedullary Nail & Irrigation and Debridement by Dr. Hart on 08/17/2020 - Received 1 unit PRBCs on 08/19/2020 due to acute blood loss anemia from the surgery - Post-operative care per surgery - TTWB R LE in CAM BOOT - DVT ppx: ASA 81 mg PO BID, TEDs x 3 weeks - Iron and vitamin C for 2 weeks - F/u with ortho on 08/24/2020 at 10:30am -> Still doing well today. (2) Abnormal EKG: EKG on admission showed normal sinus rhythm with biphasic T waves in V2 as well as new T-wave inversions. New compared to her prior in our chart in 10/2019. No symptoms. - Initial troponin on 08/17 was negative. - Repeat EKG on 08/21 showed evolution of her T wave inversions. - Will get echo to look for new regional wall abnormalities. (3) Asthma: Patient has a history of intermittent asthma. No present symptoms. - Albuterol PRN (4) HTN (hypertension): BP today is 120/70. - Holding home irbesartan; can restart as needed (5) Hyperlipidemia: - Continue statin (6) Depression: - Continue sertraline (7) DVT prophylaxis: ASA 81 mg PO BID as above Admission and Anticipated Discharge Date Admission Date: August 17, 2020 Subjective Doing well today. Having good BMs. Reports no fevers/chills, chest pain, shortness of breath, abdominal pain, nausea, or vomiting. Physical Exam Constitutional: WD/WN, vitals as above Eyes: EOM intact bilaterally; no conjunctival abnormality ENMT: external ear and nose normal, oropharynx normal Neck: trachea midline, no thyromegaly normal visual inspection Respiratory: normal respiratory effort, lungs clear to auscultation no respiratory distress Cardiovascular: RRR, no murmur, no edema Gastrointestinal (Abdomen): Inspection/Auscultation: abdomen normal to inspection; abdomen not distended Musculoskeletal: no cyanosis or clubbing, extremities motor strength 5/5 Extremities: + extremities abnormal to inspection (Right leg bandaged; toes with good cap refill and sensation) Skin: no rashes, warm and dry Neurologic: moves all extremities and awake Psychiatric: Orientation: alert, oriented to person and cooperative Results & Data Results & Data ([facility]) Vital Signs (Past 12 Hours) Vital Signs Temp Pulse Resp BP Pulse Ox 08/22/20 14:56 37.2 C 87 18 118/73 93 08/22/20 07:31 36.8 C 72 18 112/62 96 PG Care Time/CCT Total # of Minutes Spent Total Time Spent with Patient: Total time spent is greater than 50% in coordination of care (as documented) at patient's floor/unit and/or counseling patient: Coding Level of Care Code 68817 Subseq Hosp Care Lvl 2 Diagnoses Fracture of tibia and fibula, open S82.201B; S82.401B Encounter type: initial encounter Laterality: right Open fracture type: open type I or II Abnormal EKG R94.31 Asthma J45.909 HTN (hypertension) I10 Hyperlipidemia E78.5 Depression F32.9 DVT prophylaxis Z29.9 (1) Fracture of tibia and fibula, open Encounter type: initial encounter Laterality: right Open fracture type: open type I or II Qualified Code(s): S82.201B - Unspecified fracture of shaft of right tibia, initial encounter for open fracture type I or II; S82.401B - Unspecified fracture of shaft of right fibula, initial encounter for open fracture type I or II
--- NOTE | 2020-08-22 17:14 | Electrocardiogram Report ---
Test Reason : Blood Pressure : / mmHG Vent. Rate : 080 BPM Atrial Rate : 080 BPM P-R Int : 158 ms QRS Dur : 090 ms QT Int : 376 ms P-R-T Axes : 031 005 145 degrees QTc Int : 433 ms Normal sinus rhythm Left ventricular hypertrophy with repolarization abnormality Abnormal ECG When compared with ECG of 17-AUG-2020 13:32, T wave inversion now evident in Anterior leads Confirmed by Jose Carlos Medina ([id number]) on 08/22/2020 5:14:13 PM Referred By: REFERRED SELF Confirmed By:Jose Carlos Medina
[2020-08-22] MEDS: ROSUVASTATIN CALCIUM 10 MG TAB PO SCH (20:57)
[2020-08-22] MEDS ORDERED: MICONAZOLE NITRATE POWDER 43 GM EXT PRN (22:20)
[2020-08-23] MEDS: ACETAMINOPHEN 500 MG TAB PO SCH ×3 (06:28→20:26)
[2020-08-23] MEDS: ASPIRIN 81 MG ECTAB PO SCH ×2 (09:21→20:26)
[2020-08-23] MEDS: SERTRALINE HCL 100 MG TABLET PO SCH (09:21)
[2020-08-23] MEDS: PANTOprazole 40 MG TAB PO SCH (09:21)
[2020-08-23] MEDS: DOCUSATE SODIUM 100 MG CAP PO SCH ×2 (09:21→20:26)
--- NOTE | 2020-08-23 09:34 | XCELERA ---
[id number]
--- NOTE | 2020-08-23 19:48 | Hospitalist Progress Note ---
Date of Service August 23, 2020 Assessment & Plan (1) Fracture of tibia and fibula, open: Due to mechanical fall. - S/p Open Right Segmental Tib Fib, Intramedullary Nail & Irrigation and Debridement by Dr. Hart on 08/17/2020 - Received 1 unit PRBCs on 08/19/2020 due to acute blood loss anemia from the surgery - Post-operative care per surgery - TTWB R LE in CAM BOOT - DVT ppx: ASA 81 mg PO BID, TEDs x 3 weeks - Iron and vitamin C for 2 weeks (2) Abnormal EKG: EKG on admission showed normal sinus rhythm with biphasic T waves in V2 as well as new T-wave inversions. New compared to her prior in our chart in 10/2019. No symptoms. - Initial troponin on 08/17 was negative. - Repeat EKG on 08/21 showed evolution of her T wave inversions. - Echo showed EF 60 - 65%, no regional wall motion abnormalities, mild LVH, and no valvular pathology. No further follow-up needed. (3) Asthma: Patient has a history of intermittent asthma. No present symptoms. - Albuterol PRN (4) HTN (hypertension): BP today is 120/70. - Holding home irbesartan; can restart as needed (5) Hyperlipidemia: - Continue statin (6) Depression: - Continue sertraline (7) DVT prophylaxis: ASA 81 mg PO BID as above Admission and Anticipated Discharge Date Admission Date: August 17, 2020 Subjective Doing well today. Having good BMs. Reports no fevers/chills, chest pain, shortness of breath, abdominal pain, nausea, or vomiting. Physical Exam Constitutional: WD/WN, vitals as above Eyes: EOM intact bilaterally; no conjunctival abnormality ENMT: external ear and nose normal, oropharynx normal Neck: trachea midline, no thyromegaly normal visual inspection Respiratory: normal respiratory effort, lungs clear to auscultation no respiratory distress Cardiovascular: RRR, no murmur, no edema Gastrointestinal (Abdomen): Inspection/Auscultation: abdomen normal to inspection; abdomen not distended Musculoskeletal: no cyanosis or clubbing, extremities motor strength 5/5 Extremities: + extremities abnormal to inspection (Right leg bandaged; toes with good cap refill and sensation) Skin: no rashes, warm and dry Neurologic: moves all extremities and awake Psychiatric: Orientation: alert, oriented to person and cooperative Results & Data Results & Data ([facility]) Vital Signs (Past 12 Hours) Vital Signs Temp Pulse Resp BP Pulse Ox 08/23/20 17:50 36.8 C 88 18 144/82 H 99 08/23/20 15:16 36.8 C 70 18 111/68 96 PG Care Time/CCT Total # of Minutes Spent Total Time Spent with Patient: Total time spent is greater than 50% in coordination of care (as documented) at patient's floor/unit and/or counseling patient: Coding Level of Care Code 77350 Subseq Hosp Care Lvl 2 Diagnoses Fracture of tibia and fibula, open S82.201B; S82.401B Encounter type: initial encounter Laterality: right Open fracture type: open type I or II Abnormal EKG R94.31 Asthma J45.909 HTN (hypertension) I10 Hyperlipidemia E78.5 Depression F32.9 DVT prophylaxis Z29.9 (1) Fracture of tibia and fibula, open Encounter type: initial encounter Laterality: right Open fracture type: open type I or II Qualified Code(s): S82.201B - Unspecified fracture of shaft of right tibia, initial encounter for open fracture type I or II; S82.401B - Unspecified fracture of shaft of right fibula, initial encounter for open fractu re type I or II
[2020-08-23] MEDS: ROSUVASTATIN CALCIUM 10 MG TAB PO SCH (20:26)
[2020-08-23] MEDS: MELATONIN 3 MG TAB PO PRN (20:29)
[2020-08-24] MEDS: ACETAMINOPHEN 500 MG TAB PO SCH (05:40)
[2020-08-24] MEDS: SERTRALINE HCL 100 MG TABLET PO SCH (08:42)
[2020-08-24] MEDS: PANTOprazole 40 MG TAB PO SCH (08:42)
[2020-08-24] MEDS: DOCUSATE SODIUM 100 MG CAP PO SCH (08:43)
[2020-08-24] MEDS: ASPIRIN 81 MG ECTAB PO SCH (08:43)
--- NOTE | 2020-08-24 18:36 | Discharge Summary ---
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 She also has an incidental puncture wound of her right proximal forearm on the volar aspect which is bandaged and reportedly has no associated fractures. Prefall the patient's had no chest pain pressure she has no dyspnea on exertion she has no orthopnea she has no bowel or bladder changes. She has previously had nausea postoperatively from anesthesia but no other problems with any anesthesia. She does not typically have abnormal bruising bleeding epistaxis or bleeding from her bowel or bladder. She would be considered moderate surgical risk only because of her age and history of hypertension prediabetes and peripheral artery disease however given the urgent nature of her compound fracture with open fracture the patient should proceed to the operating room for washout and repair Principal Diagnosis Tib/fib fracture Discharge Exam Constitutional WD/WN, vitals as above Eyes EOM intact bilaterally; no conjunctival abnormality ENMT external ear and nose normal, oropharynx normal Neck trachea midline, no thyromegaly normal visual inspection Respiratory normal respiratory effort, lungs clear to auscultation no respiratory distress Cardiovascular RRR, no murmur, no edema Gastrointestinal (Abdomen) Inspection/Auscultation: abdomen normal to inspection; abdomen not distended Musculoskeletal no cyanosis or clubbing, extremities motor strength 5/5 Extremities: + extremities abnormal to inspection (Right leg bandaged; toes with good cap refill and sensation) Skin no rashes, warm and dry Neurologic moves all extremities and awake Psychiatric Orientation: alert, oriented to person and cooperative Discharge Data Allergies Allergy/AdvReac Type Severity Reaction Status Date / Time Penicillins Allergy Severe HIVES Verified 08/17/20 16:10 simvastatin Allergy Intermediate MYALGIA Verified 08/17/20 14:43 adhesive Allergy Mild RASH Verified 08/17/20 14:43 doxycycline AdvReac Intermediate Nausea/Vomi Verified 08/17/20 14:43 ting telithromycin AdvReac Intermediate Nausea/Vomi Verified 08/17/20 14:43 ting Consultations 08/17/20 14:06 ED Decision to Admit Stat 08/17/20 14:11 Consult Orthopedic Surgery Stat Procedures Performed Operation Date: 08/17/20 13:40 Actual Procedures p Open Right Segmental Tibia and Fibula, Intramedullary Nail, Irrigation and Debridement(Right) - Crispin Kitty Hart MD Ordered Studies 08/17/20 [place] tibia/fibula RT 2V Routine Hospital Course (1) Fracture of tibia and fibula, open: Due to mechanical fall. - S/p Open Right Segmental Tib Fib, Intramedullary Nail & Irrigation and Debridement by Dr. Hart on 08/17/2020 - Received 1 unit PRBCs on 08/19/2020 due to acute blood loss anemia from the surgery - Post-operative care per surgery - TTWB R LE in CAM BOOT - DVT ppx: ASA 81 mg PO BID, TEDs x 3 weeks - Iron and vitamin C for 2 weeks - Call orthopedic office for follow-up this week. (2) Abnormal EKG: EKG on admission showed normal sinus rhythm with biphasic T waves in V2 as well as new T-wave inversions. New compared to her prior in our chart in 0 10/2019. No symptoms. - Initial troponin on 08/17 was negative. - Repeat EKG on 08/21 showed evolution of her T wave inversions. - Echo showed EF 60 - 65%, no regional wall motion abnormalities, mild LVH, and no valvular pathology. No further follow-up needed. (3) Asthma: Patient has a history of intermittent asthma. No present symptoms. - Albuterol PRN (4) HTN (hypertension): BP today is 120/70. - Holding home irbesartan; can restart as needed (5) Hyperlipidemia: - Continue statin (6) Depression: - Continue sertraline (7) DVT prophylaxis: ASA 81 mg PO BID as above Total Time Total Time Spent Total Time Spent (In Minutes): 35 Discharge Plan Discharge Items Patient Disposition: Transfer Custodial Fac Reason For Visit: FALL Discharge Diagnosis: Fracture of tibia and fibula Condition on Discharge: Good Activity: Resume your previous activity Non-emergency contact: Primary Care Provider and Surgeon Call non-emergency contact if: your symptoms worsen Follow-up/Referrals: Mark He MD [Primary Care Provider] - Grace Muniz P.[email or web address] [Physician Leather Shaver] - 08/24/20 10:30 am (for wound check and dressing change with [facility]) Diet: Regular Addtl Attending Provider Instructions: Your echo looked great! Your heart is squeezing well and has no valve issues. Please stop the irbesartan for now. Your blood pressure has been fine without it. Your PCP can restart it as needed after you recover from surgery. Addtl [employer] Provider Instructions: Orthopedics: *Weightbear as tolerated right lower extremity with walker *CAM boot right lower extremity when ambulating, can remove at rest/in bed *Ice/Elevate as needed for pain and swelling *Keep dressings on, clean, and dry *Artemio hose for 3wks; Aspirin 81mg twice daily for 6wks for prevention of blood clots *Follow-up at our office on 08-24 with Cecile Muniz PA-C at 10:30am. Call office at [phone] with questions. Pending Studies at Discharge: No Stand-Alone Forms: [facility] Skilled Items Patient informed of condition?: No DNR: No Discharge Level of Care: Acute rehab Communicable Disease: No Discharge Prognosis: Stable Lines: None Urinary Catheter: No Medications and DC Order Prescriptions: New acetaminophen 325 mg Tablet 650 mg PO Q4H PRN (Reason: pain) Qty: 0 RF: 0 Continued cholecalciferol (vitamin D3) 1,000 unit tablet 1,000 units PO HS RF: 0 cyanocobalamin (vitamin B-12) 1,000 mcg tablet, sublingual 500 mcg PO HS RF: 0 sertraline 100 mg tablet 100 mg PO QAM RF: 0 pantoprazole 40 mg tablet,delayed release (DR/EC) 40 mg PO QAM RF: 0 rosuvastatin 10 mg tablet 10 mg PO HS RF: 0 Changed aspirin 81 mg Tablet,Delayed Release (Dr/Ec) 81 mg PO BID Qty: 0 RF: 0 Discontinued irbesartan [Avapro] 150 mg tablet 150 mg PO QAM RF: 0 potassium chloride 20 mEq tablet extended release 20 meq PO QAM RF: 0 Discharge Orders: Discharge Order (Routine); Ordered 08/24/20 Ordered By: Brant Snell/Other Patient Handouts: Preventing Deep Vein Thrombosis Admission Data Admit Date/Time: 08/17/20 20:29 Attending Provider: Brant Murphy Admit Provider: Fernando Luong Primary Care Provider: Mark He Other Providers: Crispin Hart ; Keyur Lawson at [place] ; Niurka Baer ; [facility] ; Brant Murphy Other Interventions: Discharge Summary Assessment (RN) Last Done: 08/23/20 15:16 Coding Level of Care Code D/C Day Management >30 mins Diagnoses Fracture of tibia and fibula, open S82.201B; S82.401B Encounter type: initial encounter Laterality: right Open fracture type: open type I or II Abnormal EKG R94.31 Asthma J45.909 HTN (hypertension) I10 Hyperlipidemia E78.5 Depression F32.9 DVT prophylaxis Z29.9
== END 2020-08-24 10:35 | DRG 493 ==
LOC: ED 12:01 → OR 15:45 → SUATTDRO 20:29 → 3N 20:29